=== PATIENT | female | born 1940 | race Caucasian/White ===

== ENCOUNTER → 2017-07-20 | Outpatient (CLI) | payer BC ==
[~2017-07-20] MED LIST: ASCO10003 PO; ASPI325T39 PO; BIOT1CAP3 PO; CHOL100010 PO; CYCL5TAB PO; LEVO112T2 PO; LOSA50TA54 PO; MELA1CAP9 PO; POTA550T4 PO; PRM/45 PO; SULI150T PO; SUMA50TA15 PO
--- NOTE | 2017-07-21 15:32 | MAMMOGRAPHY REPORT ---
BILATERAL DIGITAL SCREENING MAMMOGRAM WITH CAD: 07/20/2017 CLINICAL HISTORY: Routine screening. Patient has no complaints. TECHNIQUE: Current study was also evaluated with a Computer Aided Detection (CAD) system. Bilateral CC and MLO views were obtained. COMPARISON: Comparison is made to exams dated: 07/19/2016 mammogram, 07/15/2015 mammogram, 4 mammogram, 07/11/2013 mammogram, 07/10/2012 mammogram, and 07/05/2011 mammogram - [facility]. BREAST COMPOSITION: There are scattered areas of fibroglandular density in both breasts. FINDINGS: There is an oval 9 mm mass within the right upper outer quadrant, for which spot compressio n tomosynthesis views and possible breast ultrasound are recommended for further evaluation. Additio jose, there is mild motion artifact in the central aspect of the right breast which makes evaluation for stability of previously seen calcifications difficult, therefore, this area should be included i n the spot compression views. Additionally, there is motion artifact on the left MLO view, for which repeat is recommended. The remainder of both breasts are stable compared to prior exams, without suspicious masses, calcific ations, or areas of architectural distortion noted. A biopsy marker clip is again noted within the r ight breast. IMPRESSION: ACR BI-RADS CATEGORY 0: INCOMPLETE EVALUATION: NEED ADDITIONAL IMAGING EVALUATION Right breast mass, for which additional imaging evaluation is recommended. Also recommend repeat lef t MLO view due to motion artifact. The patient will be called to schedule an appointment. Approximately 10% of breast cancers are not detected with mammography. A negative mammographic report should not delay biopsy if a clinically suggestive mass is present. Yessica Milian M.D. ah/:07/20/2017 17:02:51 Truck Despatcher: Sravanthi Farley RT(R)(M)(BD), [facility] letter sent: Addl Imaging 0 BI-RADS Code: ACR BI-RADS Category 0: Incomplete Evaluation: Need Additional Imaging Evaluation
== END | disposition home or self-care (01) ==
LOC: C.MAMM 09:15
PROVIDERS: ATTEND Student in an Organized Health Care Education/Training Program
DX: Z12.31 Encounter for screening mammogram for malignant neoplasm of breast (principal); N63.10 Unspecified lump in the right breast, unspecified quadrant

== ENCOUNTER → 2017-08-02 | Outpatient (CLI) | payer BC ==
[~2017-08-02] MED LIST changes: +CALC500C3 PO; +CHOLTAB5 PO; +CTP/1 PO; +OMEGCAP2 PO; +ZINC OXIDE
--- NOTE | 2017-08-02 15:00 | MAMMOGRAPHY REPORT ---
UNILATERAL RIGHT DIGITAL DIAGNOSTIC MAMMOGRAM TOMOSYNTHESIS AND TARGETED RIGHT ULTRASOUND: 08/02/2017 CLINICAL HISTORY: 76-year-old woman called back from screening mammography for a 9 mm mass in the lat eral right breast. Also technical repeat for the left MLO view. TECHNIQUE: Full field left MLO 2-D and tomosynthesis image, spot compression right CC and MLO 2-D and tomosynthesis images were obtained. COMPARISON: Comparison is made to exams dated: 07/20/2017 mammogram, 07/19/2016 mammogram, 5 mammogram, 07/14/2014 mammogram, 07/11/2013 mammogram, and 07/13/2012 ultrasound - [facility]. BREAST COMPOSITION: There are scattered areas of fibroglandular density in the right breast. FINDINGS: The spot compression views of the right breast demonstrate a persistent lobulated mass in t he upper outer anterior breast measuring 11 x 8 x 10 mm. No associated spiculation or calcification. Further characterization with ultrasound was performed. There are no other suspicious calcificatio n or definite areas of distortion in the visualized right breast on the 2-D or tomosynthesis images. There are a few benign-appearing rodlike calcifications and a stable metallic biopsy marker clip. The repeat left MLO view demonstrates no suspicious calcifications, masses, asymmetries or areas of d istortion. Targeted ultrasound was performed in the right upper outer quadrant. There is a complicated cyst wit h internal debris and nonvascular septations in the 11:00 axis, 110 m from the nipple, measuring 11.3 x 4.6 x 9.7 mm. This is thought to correlate with the mammographic mass and is benign. Another sim ilar appearing but smaller probable complicated cyst with internal nonvascular septations is identifi ed in the 10:00 right breast, 1 cm from the nipple, measuring 5.2 x 5.0 x 5.0 mm. A third lesion is identified in the right breast 9:00 periareolar region that is predominantly isoechoic with a thin pe ripheral anechoic rim and tubular anechoic structure abutting. This is suspicious for an intraductal mass and measures 3.8 x 2.3 x 5.1 mm. Definitive characterization with an ultrasound-guided core bi opsy is recommended. IMPRESSION: ACR BI-RADS CATEGORY 4: SUSPICIOUS, TARGETED ULTRASOUND ACR BI-RADS CATEGORY 4: SUSPICIO US 1. A complicated cyst in the 11:00 right breast is thought to correlate with the newly visualized ma mmographic mass which is benign. Another similar appearing, complicated cyst is also identified in t he 10:00 right breast on ultrasound, compatible with fibrocystic change. 2. However there is a possible intracystic/intraductal 5.1 mm isoechoic mass in the 9:00 periareolar right breast that is incidentally identified on ultrasound and definitive characterization with an u ltrasound-guided core biopsy is recommended. These results and recommendations were discussed with the patient at the time of the exam. She tenta tively scheduled the right breast biopsy prior to leaving our department. Approximately 10% of breast cancers are not detected with mammography. A negative mammographic report should not delay biopsy if a clinically suggestive mass is present. Triny Gimenez M.D. ay/:08/02/2017 11:36:58 Crib Attendant: Leelee SLATER(Aidan)(Corby), [facility] letter sent: Abnormal 4/5 BI-RADS Code: ACR BI-RADS Category 4: Suspicious Ultrasound BI-RADS: ACR BI-RADS Category 4: Suspici ous
== END | disposition home or self-care (01) ==
LOC: C.MAMM 09:42
PROVIDERS: ATTEND Student in an Organized Health Care Education/Training Program
DX: R92.8 Other abnormal and inconclusive findings on diagnostic imaging of breast (principal); N63.10 Unspecified lump in the right breast, unspecified quadrant

== ENCOUNTER → 2017-08-08 | Outpatient (CLI) | payer BC ==
[~2017-08-08] MED LIST changes: -CALC500C3 PO; -CHOLTAB5 PO; -CTP/1 PO; -OMEGCAP2 PO; -ZINC OXIDE
--- NOTE | 2017-08-08 10:24 | Discharge Instructions ---
Discharge Instructions Procedure Procedure Date: Aug 08, 2017. Reason for visit: Right Mass. Discharge Discharge Date: Aug 08, 2017. Discharge Diagnosis: post right breast ultrasound guided core biopsy Medications Restart Stopped Medication(s): May resume Aspirin tonight Instructions Activity Recommendations: Additional Limitations (see below) Return to School/Work: no limitations Recommended Home Diet: No Limitations Provider Instructions: ACTIVITY RECOMMENDATIONS: * No lifting, pushing, pulling or exercising the affected side for three days. RETURN TO SCHOOL/WORK: * You may return to work/school after the procedure, but do not perform any strenuous activities for 24 to 48 hours. MEDICATIONS: * Tylenol (two 325 mg) every four to six hours if needed for mild pain (if not allergic to Tylenol). DIET: * Resume previous diet. SPECIAL CARE INSTRUCTIONS: * Keep biopsy site dry for 24 hours. May shower after 24 hours, but do not soak (bathe) incision. * May remove Tegaderm (plastic patch) tomorrow AFTER showering. * Leave the steri-strips on for one week. Allow the steri-strips to fall off by themselves. If not off after one week, you may remove them. You may place a Bandaid crosswise over the strips, if desired. * Apply ice 10 minutes on and 10 minutes off as needed. * Wear a bra at bedtime to sleep more comfortably for 2-3 days. * Your referring physician should have the results after approximately 5 to 7 business days. * Call for unusual bleeding, fever, drainage, etc or if you have any questions call [phone] during normal business hours or after hours call Dr Gimenez, . FOLLOW UP VISIT: Follow-up with Referring Physician as scheduled. Allergies Coded Allergies: Penicillins (Verified Allergy, Mild, 01/14/16) Ibuprofen (Verified Allergy, Unknown, TACHYCARDIA, 07/23/15) Omeprazole (Verified Allergy, Unknown, UNKN, 07/23/15) Oxycodone (Verified Allergy, Unknown, GI SYMPTOMS, 01/14/16) Ranitidine (Verified Allergy, Unknown, UNKN, 07/23/15) Sulfa Antibiotics (Verified Allergy, Unknown, ., 01/14/16) Ciprofloxacin (Verified Adverse Reaction, Unknown, GI SYMPTOMS, 01/14/16) Meclizine (Verified Adverse Reaction, Unknown, GI SYMPTOMS, 01/14/16) Marcella Paredes Recommendations: Call your doctor if: * Temperature above 101 degrees * Pain not relieved by pain medicine ordered * There is increased drainage or redness from any incision * You have any unanswered questions or concerns. Your Doctors Instructions noted above were prepared by provider Triny Gimenez. Patient Signature Section: Patient Instructions Signature Page Citlaly Esperanza Patient (or Guardian) Signature/Date: I have read and understand the instructions given to me by my caregivers. Caregiver/RN/Doctor Signature/Date: The above-named patient and/or guardian has received patient instructions on this date. + Original Patient Signature Page (only) stays with chart. Please make copy for patient.
--- NOTE | 2017-08-08 14:28 | MAMMOGRAPHY REPORT ---
UNILATERAL RIGHT DIGITAL DIAGNOSTIC MAMMOGRAM TOMOSYNTHESIS: 08/08/2017 CLINICAL HISTORY: Status post ultrasound guided core biopsy of a 5 mm isoechoic possibly intraductal/ intracystic mass in the 9:00 periareolar right breast. Please refer to the report from right breast ultrasound guided core biopsy performed at the same time for full detail. IMPRESSION: POST PROCEDURE IMAGING FOR MARKER PLACEMENT Please refer to the report from right breast ultrasound guided core biopsy performed at the same time for full detail. Approximately 10% of breast cancers are not detected with mammography. A negative mammographic report should not delay biopsy if a clinically suggestive mass is present. Triny Gimenez M.D. ay/:08/08/2017 10:23:08 Towboat Operator: Cheri SLATER(R)(M), [facility] BI-RADS Code: Post Procedure Imaging For Marker Placement
--- NOTE | 2017-08-08 14:28 | MAMMOGRAPHY REPORT ---
ULTRASOUND GUIDED BIOPSY RIGHT BREAST: 08/08/2017 CLINICAL HISTORY: 76-year-old woman presents for ultrasound-guided core biopsy of an incidentally wendy ntified, 5 mm intraductal/intracystic mass in the 9:00 periareolar right breast. She was initially c alled back from screening for a possible 9 mm mass in the lateral right breast, which was thought to correlate with a complicated cyst identified in the 11:00 right breast on ultrasound. COMPARISON: Comparison is made to exams dated: 08/02/2017 ultrasound, 08/02/2017 mammogram, 07/20/2017 m ammogram, 07/19/2016 mammogram, 07/15/2015 mammogram, and 07/14/2014 mammogram - [facility]. PATIENT CONSENT: The procedure, risks and benefits were discussed with the patient and informed conse nt was obtained both verbally and in writing. Specific risks to this procedure include: bleeding, in fection, puncture of adjacent structure, nontarget biopsy, sampling error, pain, metal allergy and me dication reaction. PROCEDURE DESCRIPTION: A time out was performed and the right breast was agreed as the site of biopsy . The skin was prepped and draped in the usual sterile fashion. The isoechoic intraductal versus intr acystic mass in the 9:00 periareolar right breast was chosen as the target for biopsy. Subcutaneous a nd intraparenchymal 1% buffered lidocaine, with and without epinephrine, was administered as local an esthesia. A skin incision was made. Through the incision, 4 samples were taken with a 14 gauge Achie ve biopsy device. A ribbon shaped metallic marker was placed at the biopsy site. Hemostasis was achie shahram after manual compression. The patient tolerated the procedure well and there was no immediate com plication. The samples were sent to the pathology department in an appropriately labeled container. Post procedure right CC and ML tomosynthesis images were obtained. A new ribbon-shaped biopsy marker clip is seen in the 9:00 anterior right breast, denoting the site of recent biopsy. No significant postbiopsy hematoma is seen. Another shield-shaped biopsy marker clip is seen in the posterior 9:00 right breast from remote benign biopsy. The circumscribed oval 9 mm mass in the 11:00 anterior right breast is again identified, thought to correlate with a complicated cyst seen on prior targeted ultr asound. IMPRESSION: ULTRASOUND GUIDED BIOPSY Status post ultrasound-guided core biopsy of a possible intraductal/intracystic mass in the 9:00 shasta areolar right breast, with ribbon-shaped biopsy marker clip placed at the site. The patient will receive notification of the biopsy results from her referring physician. Triny Gimenez M.D. ay/:08/08/2017 11:11:29 Machine Hoop Maker Helper: Cheri BIRD)(Corby), [facility]
== END | disposition home or self-care (01) ==
LOC: C.MAMM 09:18
PROVIDERS: ATTEND Student in an Organized Health Care Education/Training Program
DX: R92.8 Other abnormal and inconclusive findings on diagnostic imaging of breast (principal); N63.10 Unspecified lump in the right breast, unspecified quadrant

== ENCOUNTER → 2017-08-24 | Outpatient (CLI) | payer BC ==
--- NOTE | 2017-08-24 08:38 | Discharge Instructions ---
Discharge Instructions Procedure Procedure Date: Aug 24, 2017. Reason for visit: Right Breast Masses X 2. Discharge Discharge Date: Aug 24, 2017. Discharge Diagnosis: status post breast biopsy Instructions Activity Recommendations: Additional Limitations (see below) Return to School/Work: no limitations Recommended Home Diet: No Limitations Provider Instructions: ACTIVITY RECOMMENDATIONS: * No lifting, pushing, pulling or exercising the affected side for three days. RETURN TO SCHOOL/WORK: * You may return to work/school after the procedure, but do not perform any strenuous activities for 24 to 48 hours. MEDICATIONS: * Tylenol (two 325 mg) every four to six hours if needed for mild pain (if not allergic to Tylenol). DIET: * Resume previous diet. SPECIAL CARE INSTRUCTIONS: * Keep biopsy site dry for 24 hours. May shower after 24 hours, but do not soak (bathe) incision. * May remove Tegaderm (plastic patch) tomorrow AFTER showering. * Leave the steri-strips on for one week. Allow the steri-strips to fall off by themselves. If not off after one week, you may remove them. You may place a Bandaid crosswise over the strips, if desired. * Apply ice 10 minutes on and 10 minutes off as needed. * Wear a bra at bedtime to sleep more comfortably for 2-3 days. * Your referring physician should have the results after approximately 5 to 7 business days. * Call for unusual bleeding, fever, drainage, etc or if you have any questions call during normal business hours or after hours call Dr Milian, [phone]. FOLLOW UP VISIT: Follow-up with Referring Physician as scheduled. Allergies Coded Allergies: Penicillins (Verified Allergy, Mild, 01/14/16) Ibuprofen (Verified Allergy, Unknown, TACHYCARDIA, 07/23/15) Omeprazole (Verified Allergy, Unknown, UNKN, 07/23/15) Oxycodone (Verified Allergy, Unknown, GI SYMPTOMS, 01/14/16) Ranitidine (Verified Allergy, Unknown, UNKN, 07/23/15) Sulfa Antibiotics (Verified Allergy, Unknown, ., 01/14/16) Ciprofloxacin (Verified Adverse Reaction, Unknown, GI SYMPTOMS, 01/14/16) Meclizine (Verified Adverse Reaction, Unknown, GI SYMPTOMS, 01/14/16) Marcella Paredes Recommendations: Call your doctor if: * Temperature above 101 degrees * Pain not relieved by pain medicine ordered * There is increased drainage or redness from any incision * You have any unanswered questions or concerns. Your Doctors Instructions noted above were prepared by provider Yessica Milian. Patient Signature Section: Patient Instructions Signature Page Citlaly Esperanza Patient (or Guardian) Signature/Date: I have read and understand the instructions given to me by my caregivers. Caregiver/RN/Doctor Signature/Date: The above-named patient and/or guardian has received patient instructions on this date. + Original Patient Signature Page (only) stays with chart. Please make copy for patient.
--- NOTE | 2017-08-24 13:42 | MAMMOGRAPHY REPORT ---
ULTRASOUND GUIDED BIOPSY RIGHT BREAST: 08/24/2017 CLINICAL HISTORY: Right 11:00 breast mass. PATIENT CONSENT: The procedure, risks and benefits were discussed with the patient and informed writt en consent was obtained. A timeout was performed immediately prior to the procedure. PROCEDURE DESCRIPTION: With ultrasound guidance, aseptic technique, and lidocaine as the local anesth etic (1% lidocaine to anesthetize the skin and 1% lidocaine with epinephrine to anesthetize the deepe r tissues), the mass of concern in the right 11:00 breast (mass "B") was sampled 3 times with a 14-ga uge Achieve biopsy needle. Immediately thereafter, with ultrasound guidance, aseptic technique, and lidocaine as the local anesthetic, a metallic localizer clip (coil-shaped) was placed at the biopsy s ite. Direct pressure was applied to the site immediately post procedure and hemostasis was achieved. Postprocedure unilateral mammograms were performed to confirm clip placement. The patient tolerate d the procedure without complication. She was given wound care instructions. The specimens were sent to pathology for analysis. COMPARISON: Comparison is made to exams dated: 08/24/2017 ultrasound biopsy, 08/08/2017 ultrasound biop sy, 08/08/2017 mammogram, 08/02/2017 ultrasound, 08/02/2017 mammogram, and 07/20/2017 mammogram - [facility]. IMPRESSION: ULTRASOUND GUIDED BIOPSY Ultrasound-guided core needle biopsy of the right 11:00 breast mass, with clip placement. The patien t will receive pathology results from her referring provider. Yessica Milian M.D. ah/:08/24/2017 08:49:40 Field Cane Scaler: Cheri Palafox, [facility]
--- NOTE | 2017-08-24 13:42 | MAMMOGRAPHY REPORT ---
ULTRASOUND GUIDED BIOPSY RIGHT BREAST: 08/24/2017 CLINICAL HISTORY: Right 10:00 breast mass. PATIENT CONSENT: The procedure, risks and benefits were discussed with the patient and informed writt en consent was obtained. A timeout was performed immediately prior to the procedure. PROCEDURE DESCRIPTION: With ultrasound guidance, aseptic technique, and lidocaine as the local anesth etic (1% lidocaine to anesthetize the skin and 1% lidocaine with epinephrine to anesthetize the deepe r tissues), the mass of concern in the right 10:00 breast (mass "A") was sampled 3 times with a 14-ga uge Achieve biopsy needle. Immediately thereafter, with ultrasound guidance, aseptic technique, and lidocaine as the local anesthetic, a metallic localizer clip (wing-shaped) was placed at the biopsy s ite. Direct pressure was applied to the site immediately post procedure and hemostasis was achieved. Postprocedure unilateral mammograms were performed to confirm clip placement. The patient tolerate d the procedure without complication. She was given wound care instructions. The specimens were sent to pathology for analysis. COMPARISON: Comparison is made to exams dated: 08/08/2017 ultrasound biopsy, 08/08/2017 mammogram, 018 ultrasound, 07/20/2017 mammogram, 07/19/2016 mammogram, and 07/15/2015 mammogram - [facility]. IMPRESSION: ULTRASOUND GUIDED BIOPSY Ultrasound guided core needle biopsy of the right 10:00 breast mass, with clip placement. The patien t will receive pathology results from her referring provider. Yessica Milian M.D. /:08/24/2017 08:48:44 Supervisor Of Communications: Cheri Palafox, [facility]
--- NOTE | 2017-08-24 13:45 | MAMMOGRAPHY REPORT ---
UNILATERAL RIGHT DIGITAL DIAGNOSTIC MAMMOGRAM TOMOSYNTHESIS: 08/24/2017 CLINICAL HISTORY: Status post biopsies of the right 10 and 11:00 breast masses. TECHNIQUE: Breast tomosynthesis in addition to standard 2D mammography was performed. Postprocedura l right CC and ML tomosynthesis images including C views were obtained. COMPARISON: Comparison is made to exams dated: 08/24/2017 ultrasound biopsy, 08/08/2017 ultrasound biop sy, 08/08/2017 mammogram, 08/02/2017 ultrasound, 07/20/2017 mammogram, and 08/02/2017 mammogram - [facility]. BREAST COMPOSITION: There are scattered areas of fibroglandular density in the right breast. FINDINGS: A new wing-shaped biopsy marker clip is seen at the site of the biopsied mass in the right 10:00 breast. A new coil-shaped biopsy marker clip is seen at the site of the biopsied mass in the right 11:00 breast. A wing-shaped biopsy marker clip is seen within the right 9:00 breast at the sit e of prior biopsy which yielded an atypical papillary proliferation. Another biopsy marker clip is s een posteriorly in the right upper outer quadrant from a remote biopsy. No significant postbiopsy he matoma is seen. IMPRESSION: POST PROCEDURE IMAGING FOR MARKER PLACEMENT Two new biopsy marker clips status post ultrasound guided biopsies of the right 10:00 and 11:00 breas t masses. Pathology results are pending. Approximately 10% of breast cancers are not detected with mammography. A negative mammographic report should not delay biopsy if a clinically suggestive mass is present. Yessica Milian M.D. /:08/24/2017 08:52:06 Venture Capital Analyst: Cheri Palafox, [facility] BI-RADS Code: Post Procedure Imaging For Marker Placement
== END | disposition home or self-care (01) ==
LOC: C.MAMM 08:01
PROVIDERS: ATTEND Student in an Organized Health Care Education/Training Program
DX: N63.10 Unspecified lump in the right breast, unspecified quadrant (principal); D24.1 Benign neoplasm of right breast; N60.81 Other benign mammary dysplasias of right breast; N60.11 Diffuse cystic mastopathy of right breast

== ENCOUNTER 2017-09-13 07:42 | Day surgery (SDC) | payer BC ==
[2017-08-31 09:16] VITALS: Ht 154.9 cm; Wt 82.7 kg
--- NOTE | 2017-08-31 09:44 | PAT Medication Instructions ---
Service Date Aug 31, 2017. Current Home Medication List Ascorbic Acid (Vitamin C), 1,000 MG PO QAM Aspirin (Aspirin Ec), 325 MG PO HS Biotin (Biotin), 5,000 MCG PO QAM Cholecalciferol (D-1000), 1 TAB PO QAM Cyclobenzaprine Hcl (Flexeril), 5 MG PO TID PRN for Muscle Spasms Estrogens, Conjugated (Premarin), 0.45 MG PO Q2D Levothyroxine Sodium (Synthroid), 112 MCG PO QAM Losartan Potassium (Cozaar), 50 MG PO QAM Melatonin (Melatonin), 10 MG PO HS Potassium Gluconate (Potassium Gluconate), 1 TAB PO DAILY PRN for Muscle Spasms Sulindac (Clinoril), 150 MG PO BID Sumatriptan Succinate (Imitrex), 50 MG PO PRN Medication Instructions For Your Scheduled Surgery - Check with surgeon for instructions: Aspirin (Aspirin Ec), 325 MG PO HS Estrogens, Conjugated (Premarin), 0.45 MG PO Q2D - Hold the following medications 7-10 days prior to surgery: Sulindac (Clinoril), 150 MG PO BID - Hold the following medications the morning of surgery: Potassium Gluconate (Potassium Gluconate), 1 TAB PO DAILY PRN for Muscle Spasms Losartan Potassium (Cozaar), 50 MG PO QAM Cyclobenzaprine Hcl (Flexeril), 5 MG PO TID PRN for Muscle Spasms Cholecalciferol (D-1000), 1 TAB PO QAM Biotin (Biotin), 5,000 MCG PO QAM Ascorbic Acid (Vitamin C), 1,000 MG PO QAM - Take the following medications the morning of surgery with a sip of water: Sumatriptan Succinate (Imitrex), 50 MG PO PRN i(if needed) Levothyroxine Sodium (Synthroid), 112 MCG PO QAM - Take the following medications as scheduled the night before surgery: Sumatriptan Succinate (Imitrex), 50 MG PO PRN i(if needed) Potassium Gluconate (Potassium Gluconate), 1 TAB PO DAILY PRN for Muscle Spasms i(if needed) Melatonin (Melatonin), 10 MG PO HS Cyclobenzaprine Hcl (Flexeril), 5 MG PO TID PRN for Muscle Spasms i(if needed) If you have any questions please call us at [phone] or [phone] or [phone]
[2017-08-31 10:12] VITALS: BMI 33.0
[2017-08-31 11:22] LABS: BASO % 0.3 %; BASO ABS # 0.02 K/uL (0-0.2); EOS % 1.9 %; EOS ABS # 0.13 K/uL (0-0.5); HEMATOCRIT 40.7 % (37-47); HEMOGLOBIN 13.6 g/dL (12.0-16.0); IG# 0.02 K/uL (0.00-0.02); LYMPH % 24.1 %; LYMPH ABS # 1.61 K/uL (1.2-3.4); MEAN CELL VOLUME 85.7 fL (80-100); MEAN CORPUSCULAR HEMOGLOBIN 28.6 pg (25-34); MEAN CORPUSCULAR HGB CONC 33.4 g/dl (32-36); MEAN PLATELET VOLUME 9.7 fL (7.4-10.4); MONO % 8.2 %; MONO ABS # 0.55 K/uL (0.11-0.59); NEUT % 65.2 %; NEUT ABS # 4.36 K/uL (1.4-6.5); PLATELET COUNT 183 K/uL (130-400); RED CELL DISTRIBUTION WIDTH SD 43.4 fL (36.4-46.3); WHITE BLOOD COUNT 6.69 K/uL (4.8-10.8)
[2017-08-31 11:36] LABS: PTT PATIENT 25.5 SECONDS (21.0-31.0)
[2017-08-31 12:08] LABS: ALBUMIN 3.7 gm/dl (3.4-5.0); CREATININE 0.62 mg/dl (0.60-1.20); POTASSIUM 4.3 mmol/L (3.5-5.1)
[2017-08-31 12:11] LABS: TOTAL PROTEIN 6.9 gm/dl (6.4-8.2)
[~2017-09-13] VITALS: Ht 154.9 cm; Wt 82.7 kg
[~2017-09-13 07:42] MED LIST changes: +CEFAZOLIN 2000MG IV PUSH 15 ML IV SCH; -CHOL100010 PO; +CHOLTAB5 PO; +LACTATED RINGER'S 1000ML 1,000 ML IV SCH
[2017-09-13] MEDS ORDERED: BUPIVACAINE 0.5 % 5 MG/1 ML MPF 30ML VIAL ONE (08:34)
[2017-09-13] MEDS ORDERED: SODIUM CHLORIDE 0.9% PF 50 ML VIAL ONE (08:37)
[2017-09-13 09:27] VITALS: BP 172/78; PULSE 76; TEMP 36.6; O2SAT 96
[2017-09-13] MEDS ORDERED: NURSING VERBAL MED ORDER ONE (10:40)
--- NOTE | 2017-09-13 10:45 | History & Physical Bridge Note ---
H&P Re-Evaluation Bridge Note: I have examined the patient, reviewed the History & Physical and in the interval since the performance of the History & Physical I have noted the following changes of clinical significance: Wires, placed, xray reviewed. No other changes noted
[2017-09-13] MEDS ORDERED: MIDAZOLAM HCL 1 MG/ML 2ML VIAL ONE (10:49)
[2017-09-13] MEDS ORDERED: FENTANYL CITRATE INJ 50 MCG/1 ML 2 ML VIAL ONE (10:49)
[2017-09-13] MEDS ORDERED: CLINDAMYCIN IV 900 MG in DEXTROSE 5% 50ML IV SCH (11:00)
[2017-09-13] MEDS ORDERED: LIDOCAINE/EPINEPHRINE 1% 20 ML VIAL ONE (11:10)
[2017-09-13] MEDS ORDERED: PROPOFOL IV EMULSION 10 MG/ML 20 ML VIAL IV ONE (11:31)
[2017-09-13] MEDS ORDERED: ONDANSETRON INJ 2 MG/ML 2 ML VIAL ONE (11:31)
[2017-09-13] MEDS ORDERED: ATROPINE SULFATE 0.1 MG/ML 5ML SYR IV PRN (11:45)
[2017-09-13] MEDS ORDERED: FENTANYL CITRATE INJ 50 MCG/1 ML 2 ML VIAL IV PRN (11:45)
[2017-09-13] MEDS ORDERED: ONDANSETRON INJ 2 MG/ML 2 ML VIAL IV PRN ×2 (11:45→12:00)
--- NOTE | 2017-09-13 11:48 | [facility] Post Operative Brief Note ---
Immediate Operative Summary Operative Date Sep 13, 2017. Pre-Operative Diagnosis Right breast mass Post-Operative Diagnosis Right breast mass Procedure(s) Performed Right breast wire localized excisional biopsy Surgeon Emmanuelle Draper D.O. Regional Sales Leader Surgeon(s) HUSSAIN Quintero Estimated Blood Loss 3 mL Findings Consistent with Post-Op Diagnosis radiographic confirmation of excision of wires, clips, and specimens Specimens A) right breast mass-short suture superior, long suture lateral, double suture deep B) inferior medial margin, suture joseph border of tumor Drains None Anesthesia Type MAC Complication(s) none Disposition Accompanied Pt To Recover: no Disposition: Recovery Room / PACU
[2017-09-13] MEDS ORDERED: LACTATED RINGER'S 1000ML 1,000 ML IV SCH (11:56)
--- NOTE | 2017-09-13 11:57 | [facility] Operative Report ---
Operative Report Operative Date Sep 13, 2017. Pre-Operative Diagnosis Right breast mass Post-Operative Diagnosis right breast mass Procedure(s) Performed Right breast wire localized excisional biopsy Surgeon Emmanuelle Draper D.O. [employer] Director Surgeon(s) HUSSAIN Quintero Estimated Blood Loss 3 mL Findings Mass and 3 wires completely excised down to chest wall. X-ray confirmed excision of wires, clips, and specimen. Specimen was oriented, additional inferior medial margin excised. Specimens A) right breast mass-short suture superior, long suture lateral, double suture deep B) inferior medial margin, suture joseph border of tumor Drains none Anesthesia MAC/local Complication(s) None Disposition Recovery Room / PACU Indications 76-year-old female with 3 individual masses in upper outer quadrant right breast discovered on screening mammography, biopsy should atypical cells into the specimens and PASH in the other, excisional biopsy recommended. Prior to the procedure the patient had 3 wires placed. Plan for right breast wire localized excisional biopsy. The risks of the procedure were discussed, all questions were answered, and the patient agreed to proceed with surgery as planned. Description of Procedure The patient had a localization wire placed in radiology prior to surgery. The films were reviewed for incisional planning. The patient was properly identified, consented, and taken to the operating room where she was placed in the supine position. After anesthesia care was induced. SCDs and a safety belt were placed. Preoperative antibiotics were administered. The patient's bilateral chest was prepped and draped in the standard sterile fashion. Surgical timeout was performed and all parties were in agreement that this was the correct patient and procedure to be performed and we continued as planned. A transverse incision was made lateral to the nipple on the right breast and deepened down through the subcutaneous tissue with electrocautery. Flaps were raised in all directions. And wires were delivered into the incision. The wires were followed down to the chest wall and the breast mass was circumferentially dissected, excised, and passed off the table as specimen. The specimen was oriented. A mammogram was performed of the specimen and the radiologist confirmed excision of the wire, clip, and previously imaged abnormality. An additional inferior medial margin was excised and oriented with a single stitch marking the cut edge bordering the original biopsy specimen. The wound was irrigated and hemostasis was confirmed. The skin was closed with interrupted 3-0 Vicryl deep dermal sutures, followed by 4-0 Monocryl running subcuticular suture. Dermabond was placed over the wound. The patient was extubated in the operating room and taken to the PACU where she recovered without apparent incident. All sponge, instrument and needle counts were correct at the conclusion of the procedure. The patient tolerated the procedure well. The physician's syrup mixer assistant was present and scrubbed for the entirety of the case. He was essential in positioning the patient, prepping and draping, retraction and exposure, excision of the specimen, and closure of the skin and placement of the dressings. I attest to the content of the Intraoperative Record and any orders documented therein. Any exceptions are noted below.
[2017-09-13] MEDS ORDERED: MoRPHine SULFATE 2 MG/ML CARP IV PRN (12:00)
[2017-09-13] MEDS ORDERED: ACETAMINOPHEN 500 MG TAB PO PRN (12:00)
[2017-09-13 12:20] VITALS: BP 160/71; PULSE 68; TEMP 36.3; O2SAT 95
--- NOTE | 2017-09-13 12:27 | Anesthesiology Progress Note ---
Anesthesia Post Op Note Date & Time Sep 13, 2017 at 12:27 Vital Signs Pain Intensity: 0 Vital Signs Past 12 Hours Date Time Temp Pulse Resp B/P (MAP) Pulse Ox O2 Delivery O2 Flow Rate FiO2 09/13/17 12:15 71 16 168/90 95 Room Air 09/13/17 12:05 68 16 140/68 97 Room Air 09/13/17 11:56 36.3 65 16 127/79 97 Room Air 09/13/17 09:27 36.6 76 20 172/78 (109) 96 Room Air Notes Mental Status: alert / awake / arousable, participated in evaluation Pt Amnestic to Procedure: Yes Nausea / Vomiting: adequately controlled Pain: adequately controlled Airway Patency, RR, SpO2: stable & adequate BP & HR: stable & adequate Hydration State: stable & adequate Anesthetic Complications: no major complications apparent
--- NOTE | 2017-09-13 12:41 | Discharge Instructions ---
Discharge Instructions Date of Service Sep 13, 2017. Visit Reason for Visit: Right Breast Mass Seen On Mammogram W/Hosp Loc Discharge Discharge Diagnosis / Problem: right breast biopsy Discharge Goals Goal(s): Diagnostic testing Activity Recommendations Activity Limitations: as noted below Shower/Bathe: no limitations (ok to shower) Anesthesia . Post Anesthesia Instructions: If you have had General Anesthesia or IV Sedation: * Do not drive today. * Resume driving when surgeon permits. * Do not make important decisions or sign legal documents today. * Call surgeon for: 1. Temperature elevations greater than 101 degrees F. 2. Uncontrollable pain. 3. Excessive bleeding. 4. Persistent nausea and vomiting. 5. Medication intolerance (nausea, vomiting or rash). * For nausea and vomiting use only clear liquids such as: tea, soda, bouillon until nausea subsides, then gradually increase diet as tolerated. * If you have any concerns or questions, call your surgeon's office. If physician is unavailable and it is an emergency, call 911 or go to the nearest emergency room. . Instructions / Follow-Up Instructions / Follow-Up Dr. Draper in 1-2 weeks as planned, call [phone] if you have any questions or do not have an appt You may take Tylenol 650-1000 mg 3 times daily for pain Diet Recommendations Recommended Home Diet: no limitations Procedures Procedures Performed: Right breast wire localized excisional biopsy Pending Studies Studies pending at discharge: yes List of pending studies: pathology Medical Emergencies . Who to Call and When: Medical Emergencies: If at any time you feel your situation is an emergency, please call 911 immediately. . Non-Emergent Contact Non-Emergency issues call your: Surgeon Call Non-Emergent contact if: you have a fever, temperature is above 101.5, your pain is not controlled, wound has increased redness . . "Provider Documentation" section prepared by Anderson Diamond. .
[2017-09-13 12:50] VITALS: BP 142/72; PULSE 68; TEMP 36.3; O2SAT 96
--- NOTE | 2017-09-13 15:21 | MAMMOGRAPHY REPORT ---
MULTIPLE NEEDLE LOCALIZATION RIGHT BREAST: 09/13/2017 CLINICAL HISTORY: Recent ultrasound-guided biopsy of the right breast masses from 9 to 11:00, 2 of wh ich yielded atypical papillary proliferations. The other yielded fibrocystic change and other benign findings. The patient presents for needle localization of all 3 masses. PROCEDURE DESCRIPTION: With imaging guidance, aseptic technique, and 1% lidocaine as the local anest hetic, the three masses with associated biopsy marker clips in the right 9 to 11:00 breast were local ized using three Yeboah II needles. The path of approach was lateral for all masses. The ribbon-sh aped biopsy marker clip and associated right 9:00 breast mass are located just proximal to the ismael o f the anterior-most wire. The coil-shaped biopsy marker clip and associated mass in the right 11:00 breast mass are located at the ismael of the superior-most wire. The wing-shaped biopsy marker clip an d associated mass in the right 10:00 breast are located at the ismael of the posterior-most wire. The n eedles were removed. The patient tolerated the procedure without complication. COMPARISON: Comparison is made to exams dated: 08/24/2017 mammogram, 08/24/2017 ultrasound biopsy, 08/01 ultrasound biopsy, 08/08/2017 ultrasound biopsy, 08/08/2017 mammogram, and 08/02/2017 ultrasound - [facility]. IMPRESSION: NEEDLE LOCALIZATION Mammographic guided needle localization of 3 masses and associated biopsy marker clips in the right 9 to 11:00 breast. Yessica Milian M.D. ah/:09/13/2017 08:37:55 Jazz Musician: Cheri SLATER(Aidan)(M), [facility]
--- NOTE | 2017-09-13 15:21 | MAMMOGRAPHY REPORT ---
MULTIPLE SPECIMENS RIGHT BREAST: 09/13/2017 CLINICAL HISTORY: Status post right breast surgical excision. COMPARISON: Comparison is made to exams dated: 08/24/2017 mammogram, 08/24/2017 ultrasound biopsy, 08/01 ultrasound biopsy, 08/08/2017 ultrasound biopsy, 08/02/2017 ultrasound, and 08/08/2017 mammogram - [facility]. Findings: A radiograph was performed of the right breast surgical specimen. The three localized biop sy marker clips and 3 intact needle localization wires are present within the specimen. Another biop sy marker clip from a remote benign biopsy is also present within the specimen. Results were relayed to Dr. Draper over the telephone. IMPRESSION: SPECIMEN The imaged specimen contains the preoperatively-localized biopsy marker clips. Yessica Milian M.D. ah/:09/13/2017 11:42:42 Molding Room Supervisor: Cheri BIRD)(M), [facility]
== END 2017-09-13 13:15 | disposition home or self-care (01) ==
LOC: C.ACU 07:42
PROVIDERS: ATTEND Surgery
DX: N63.10 Unspecified lump in the right breast, unspecified quadrant (principal); I10 Essential (primary) hypertension; M15.9 Polyosteoarthritis, unspecified; E03.9 Hypothyroidism, unspecified; K21.9 Gastro-esophageal reflux disease without esophagitis; G25.81 Restless legs syndrome; Z79.82 Long term (current) use of aspirin; Z79.899 Other long term (current) drug therapy

== ENCOUNTER → 2017-12-01 | Outpatient (CLI) | payer BC ==
[~2017-12-01] MED LIST changes: -CEFAZOLIN 2000MG IV PUSH 15 ML IV SCH; +CTP/1 PO; -LACTATED RINGER'S 1000ML 1,000 ML IV SCH; -PRM/45 PO; +ZINC OXIDE
[2017-12-01 08:58] VITALS: BP 155/85; PULSE 70; TEMP 36.4; O2SAT 95
--- NOTE | 2017-12-01 10:14 | Radiation Oncology Follow-Up ---
Radiation Oncology Follow-Up Date of Visit December 01, 2017. 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 She received 3850 cGy utilizing accelerated partial breast irradiation. Last Edited By: Audra Batres on Nov 13, 2017 13:46 History of Present Illness Ms. Mata is without a family history of breast cancer. She is undergone bilateral screening mammograms. 07/20/2017. Patient undergoes bilateral digital screening mammogram. This scan revealed a oval 9 mm mass within the right upper outer quadrant. Spot compression and tomosynthesis views and possible breast ultrasound are recommended. 08/02/2017. Patient undergoes unilateral right digital diagnostic mammogram and targeted right breast ultrasound. Spot compression views demonstrate a persistent lobulated mass in the upper outer anterior breast measuring 1.1 x 0.8 x 1.0 cm. No calcification or spiculation are appreciated. Targeted ultrasound was performed of the right upper outer quadrant. At the 11:00 axis XI centimeters from the nipple is a complicated cyst measuring 11.3 x 4.6 x 9.7 mm likely benign. Another similar-appearing but smaller complicated cyst is noted at the 10 o'clock position of the right breast 1 cm from the nipple measuring 5.2 x 5.0 x 5.0 mm. A third lesion is identified in the right breast 9:00 periareolar region that is suspicious for an intraductal mass measuring 3.8 x 2.3 x 5.1 mm. Ultrasound-guided biopsy was recommended. This was given a BI-RADS Category 4. 08/08/2017. Ultrasound-guided core biopsy the 9 o'clock position of the right breast revealed atypical papillary proliferation. Excision is recommended. Case: [id number]. 08/24/2017. Ultrasound-guided biopsy of the right breast at the 10 o'clock position and the right breast 11 o'clock position. The tissue from the 10 o' clock position was consistent with atypical papillary proliferation. The tissue from the 11 o'clock position showed fibrocystic changes but was negative for in situ and invasive carcinoma. Case: [id number]. 09/13/2017. Patient is seen by Dr. Mono Draper. He proceeded with an excisional needle localization biopsy. This revealed a DCIS measuring 2 mm with a nuclear grade of grade 1. The margins were clear with the closest margin 3.5 mm representing the deep margin. This is a pathologic stage pTis. The lesion is ER positive (100%, strong intensity). The lesion is progesterone receptor positive (50%, moderate intensity). Case: [id number]. 10/06/2017. Patient is seen by Dr. Maxi Metcalf to discuss the role of adjuvant hormonal therapy. 10/11/2017. Patient is seen in radiation oncology to discuss the radiation treatment options. She underwent a CT simulation and was found to be a candidate for accelerated partial breast irradiation. This was completed on November 03, 2017. She received 3850 cGy. Interim History She has noticed some swelling at the nipple over the past month. At the end of treatment she stated there was a black marker used to denote the end of the nipple. She had difficulty with removing the marker. She felt this may have to do with some of the swelling noted at the nipple. She has inverted nipples. This is much more pronounced now on the right since the completion of treatment. She has mild discomfort of the breast. She gave this a level 1. There is been no nipple discharge. There was a rash above the breast and across the shoulders. The redness has resolved. She does have some mild itching intermittently. She use the natural care gel and felt that this helped to relieve her rash. She is for recheck appointment with medical oncology today. Allergies Coded Allergies: Penicillins (Verified Allergy, Mild, rash, 09/13/17) Ibuprofen (Verified Allergy, Unknown, TACHYCARDIA, 09/13/17) Oxycodone (Verified Allergy, Unknown, GI SYMPTOMS, 09/13/17) Ranitidine (Verified Allergy, Unknown, rash, 09/13/17) Sulfa Antibiotics (Verified Allergy, Unknown, rash, 09/13/17) Ciprofloxacin (Verified Adverse Reaction, Unknown, GI SYMPTOMS, 09/13/17) Meclizine (Verified Adverse Reaction, Unknown, GI SYMPTOMS, 08/31/17) Home Medications Scheduled Ascorbic Acid (Vitamin C), 1,000 MG PO QAM Aspirin (Aspirin Ec), 325 MG PO HS Biotin (Biotin), 5,000 MCG PO QAM Cholecalciferol (D-1000), 1 TAB PO QAM Clonidine Hcl (Catapres), 1 TAB PO HS Levothyroxine Sodium (Synthroid), 112 MCG PO QAM Losartan Potassium (Cozaar), 50 MG PO QAM Melatonin (Melatonin), 10 MG PO HS Sulindac (Clinoril), 150 MG PO BID Sumatriptan Succinate (Imitrex), 50 MG PO PRN Scheduled PRN Cyclobenzaprine Hcl (Flexeril), 5 MG PO TID PRN for Muscle Spasms Potassium Gluconate (Potassium Gluconate), 1 TAB PO DAILY PRN for Muscle Spasms Miscellaneous Medications [zinc oxid] Review of Systems Gastrointestinal: Symptoms: WNL Oral: Symptoms: No Problems Respiratory: Symptoms: WNL Urinary: Symptoms: WNL Skin: Symptoms: No Problems Other Skin Symptoms: right nipple has opened Breast: Right Upper Arm Measurement: 33.5 Right Mid Arm Measurement: 24.0 Right Wrist Measurement: 17.5 Left Upper Arm Measurement: 33.5 Left Mid Arm Measurement: 23.5 Left Wrist Measurement: 17.5 Arm Dominence: Right Additional Notes: She completed a distress management report and answer "no" to all questions other than she has concerns about eating. Physical Exam Vital Signs Date Time Temp Pulse Resp B/P (MAP) Pulse Ox O2 Delivery O2 Flow Rate FiO2 12/01/17 08:58 36.4 70 20 155/85 95 Fatigue: None General Appearance: no apparent distress Eyes: normal inspection, EOMI Neck: no adenopathy, thyroid normal Respiratory/Chest: lungs clear, no respiratory distress, no accessory muscle use Breast: Breast examination reveals well-healed incision of the right breast. There is edema of the breast with noted swelling at the nipple. Due to the swelling the inverted nipple appears deeper. There is no erythema. There is no discharge from the nipple. There are no signs of infection. There are no masses or tenderness and no axillary adenopathy. Using the [place] score of cosmesis she currently has a fair outcome. The left breast showed no masses or tenderness and no axillary adenopathy. Cardiovascular: regular rate, rhythm, no gallop, no murmur Extremities: no pedal edema Neurologic/Psychiatric: no motor/sensory deficits, alert, normal mood/affect Skin: warm/dry Pain Management Patient Reports Pain: No Pain Location: Breast Patient Preferred Pain Scale: 0 - 10 Initial Pain Intensity: 1.0 Pain Management Plan She did not require any pain management. We discussed that the discomfort and swelling is due to edema. This should improve over time. Laboratory Laboratory Results: not applicable Pathology Pathology Results: were reviewed, and pertinent findings noted in HPI Imaging Imaging Studies: were reviewed, and pertinent findings noted in HPI Assessment & Plan Plan: We discussed the edema of the breast. She was given instructions on light massage to help decreased swelling. She plan to continue the natural care gel for the mild skin irritation. She was instructed to use over-the- counter hydrocortisone for any itching. She also is using some zinc oxide to the nipple. I asked her to use this very lightly. She would be able to discontinue all creams and gels in a week. Today we completed a cancer survivorship care plan. A copy of the document was given to the patient. She was given a survivorship booklet. She will need to be scheduled for mammography. She had to leave our office to go to her medical oncology appointment. She was instructed to come back down and we would schedule the mammograms. Her name was also given to our airfield engineer officer director, Caleb Edwards, to discuss the dissatisfaction she had in regards to the marking of the nipple prior to treatment. She will return to our office in 6 months. She may call if she has any questions or concerns in the interim. She brought in information today in regards to cancer insurance. This will be given to our typing secretary so that further information can be forwarded to the cancer insurance company. Total Time In Follow-Up I spent 20 minutes speaking to the patient in performing examination. I spent 20 minutes reviewing information, preparing the survivorship document, and completing this note. Total Time (Attending) In Follow-Up She denied pain before, and during treatment. She has been some mild discomfort today. This is level 1. We discussed light massage to help decrease breast edema. Copy To Mono Draper DO; Navya Prescott D.O.; Maxi Metcalf MD
== END | disposition home or self-care (01) ==
LOC: C.ONC 08:44
PROVIDERS: ATTEND Physician Assistant Medical
DX: Z08 Encounter for follow-up examination after completed treatment for malignant neoplasm (principal); Z92.3 Personal history of irradiation; Z85.3 Personal history of malignant neoplasm of breast

== ENCOUNTER → 2018-03-01 | Day surgery (SDC) | payer BC ==
[2018-02-27 11:30] VITALS: BMI 32.0
[~2018-03-01] VITALS: Ht 154.9 cm; Wt 77.3 kg
[~2018-03-01] MED LIST changes: -BIOT1CAP3 PO; +CALC500C3 PO; -CYCL5TAB PO; +LIDOCAINE HCL 2% 2 ML VIAL (20MG/ML) ONE; +OMEGCAP2 PO; +PROPOFOL IV EMULSION 10 MG/ML 20 ML VIAL ONE; -ZINC OXIDE
[2018-03-01 12:15] VITALS: Ht 154.9 cm; Wt 77.3 kg
--- NOTE | 2018-03-01 12:41 | Endo History and Physical ---
History & Physical Date of Service: Mar 01, 2018. Chief Complaint: DYSPHAGIA Referring Physician: DR.L. LEON History of Present Illness 77 yo CF who presents for EGD secondary to dysphagia. Past Surgical History Hx Cardiac Surgery: No Hx Internal Defibrillator: No Hx Pacemaker: No Hx Abdominal Surgery: Yes (YAKOV BSO) Hx of Implantable Prosthesis: No Hx Post-Op Nausea and Vomiting: No Hx Cancer Surgery: Yes (R LUMPECTOMY) Hx Thoracic Surgery: No Hx Orthopedic: Yes (bilateral thumbs) Hx Urinary Tract Surgery: No Family History None Social History Smoking Status: Former Smoker Hx Substance Use: No Hx Alcohol Use: Yes (Occasionally ) Allergies Coded Allergies: Nickel (Verified Allergy, Mild, RASH, 03/01/18) Penicillins (Verified Allergy, Mild, rash, 03/01/18) Ibuprofen (Verified Allergy, Unknown, TACHYCARDIA, 03/01/18) Oxycodone (Verified Allergy, Unknown, GI SYMPTOMS, 03/01/18) Ranitidine (Verified Allergy, Unknown, rash, 03/01/18) Sulfa Antibiotics (Verified Allergy, Unknown, rash, 03/01/18) Ciprofloxacin (Verified Adverse Reaction, Unknown, GI SYMPTOMS, 03/01/18) Meclizine (Verified Adverse Reaction, Unknown, GI SYMPTOMS, 03/01/18) Current Medications Reported Home Medications Medications Dose Route/Sig Max Daily Dose Days Date Category Dose Instructions Tums (Calcium Carbonate) 500 Mg Chew 1,000 PO QD 03/01/18 Reported Fish Oil ([place]-3 Fatty Acids) 1 Cap Cap 1 Cap PO DAILY 02/27/18 Reported Catapres (Clonidine Hcl) 0.1 Mg Tab 1 Tab PO HS 30 12/01/17 Reported D-1000 (Cholecalciferol) 1,000 Unit Tab 1 Tab PO QAM 08/31/17 Reported Vitamin C (Ascorbic Acid) 1,000 Mg Tab 1,000 Mg PO QAM 01/14/16 Reported Melatonin 10 Mg Cap 10 Mg PO HS 01/14/16 Reported Cozaar (Losartan Potassium) 50 Mg Tab 50 Mg PO QAM 01/14/16 Reported Imitrex (Sumatriptan Succinate) 50 Mg Tab 50 Mg PO PRN 03/02/15 Reported One pill by mouth at onset of migraine. May repeat every 2 hours but not more than 4 tablets in 24 hours. Aspirin Ec (Aspirin) 325 Mg Tab 325 Mg PO HS 9/21/13 Reported Clinoril (Sulindac) 150 Mg Tab 150 Mg PO BID 04/20/13 Reported Synthroid (Levothyroxine Sodium) 112 Mcg Tab 112 Mcg PO QAM 04/20/13 Reported Vital Signs Weight (Kilograms): 77.27 Height (Feet): 5 Height (Inches): 1 Date Time Temp Pulse Resp B/P (MAP) Pulse Ox O2 Delivery O2 Flow Rate FiO2 03/01/18 12:21 36.6 56 20 181/72 (108) 95 Room Air Physical Exam General Appearance: WD/WN, no apparent distress Respiratory/Chest: Auscultation: breath sounds normal Cardiovascular: Heart Auscultation: RRR Abdomen: Bowel Sounds: normal Inspection & Palpation: soft, non-distended, no tenderness, guarding & rebound Assessment and Plan Assessment: 77 yo CF who presents for EGD secondary to dysphagia. Plan: Proceed with colonoscopy.
--- NOTE | 2018-03-01 13:52 | Discharge Instructions ---
Endoscopy Patient Instructions Date / Procedure(s) Performed Mar 01, 2018. EGD Allergy Information Coded Allergies: Nickel (Verified Allergy, Mild, RASH, 03/01/18) Penicillins (Verified Allergy, Mild, rash, 03/01/18) Ibuprofen (Verified Allergy, Unknown, TACHYCARDIA, 03/01/18) Oxycodone (Verified Allergy, Unknown, GI SYMPTOMS, 03/01/18) Ranitidine (Verified Allergy, Unknown, rash, 03/01/18) Sulfa Antibiotics (Verified Allergy, Unknown, rash, 03/01/18) Ciprofloxacin (Verified Adverse Reaction, Unknown, GI SYMPTOMS, 03/01/18) Meclizine (Verified Adverse Reaction, Unknown, GI SYMPTOMS, 03/01/18) Discharge Date / Findings Mar 01, 2018. Gastric ulcers s/p biopsies Esophageal stenosis s/p dilation to 18 mm Medication Instructions 1) Start Pantoprazole 40mg by mouth each morning 1/2 hour prior to breakfast. 2) OK to resume all medications today as prescribed Reported Home Medications Medications Dose Route/Sig Max Daily Dose Days Date Category Dose Instructions Tums (Calcium Carbonate) 500 Mg Chew 1,000 PO QD 03/01/18 Reported Fish Oil (Seanor-3 Fatty Acids) 1 Cap Cap 1 Cap PO DAILY 02/27/18 Reported Catapres (Clonidine Hcl) 0.1 Mg Tab 1 Tab PO HS 30 12/01/17 Reported D-1000 (Cholecalciferol) 1,000 Unit Tab 1 Tab PO QAM 08/31/17 Reported Vitamin C (Ascorbic Acid) 1,000 Mg Tab 1,000 Mg PO QAM 01/14/16 Reported Melatonin 10 Mg Cap 10 Mg PO HS 01/14/16 Reported Cozaar (Losartan Potassium) 50 Mg Tab 50 Mg PO QAM 01/14/16 Reported Imitrex (Sumatriptan Succinate) 50 Mg Tab 50 Mg PO PRN 03/02/15 Reported One pill by mouth at onset of migraine. May repeat every 2 hours but not more than 4 tablets in 24 hours. Aspirin Ec (Aspirin) 325 Mg Tab 325 Mg PO HS 04/20/13 Reported Clinoril (Sulindac) 150 Mg Tab 150 Mg PO BID 04/20/13 Reported Synthroid (Levothyroxine Sodium) 112 Mcg Tab 112 Mcg PO QAM 04/20/13 Reported Provider Instructions Activity Restrictions - No exercising or heavy lifting for 24 hours. - Do not drink alcohol the day of the procedure. - Do not drive a car or operate machinery until the day after the procedure. - Do not make any important decisions or sign important papers in 24 hours after the procedure. Following Day: - Return to full activity which may include returning to work/school. Diet Start your diet with liquids and light foods (jello, soup, juice, toast). Then eat your usual diet if not nauseated. Treatment For Common After Affects For mild abdominal pain, bloating, or excessive gas: - Rest - Eat lightly - Lie on right side Follow-Up Information Follow-up with DR.L. LEON as scheduled Anesthesia Information What You Should Know You have had a procedure that required some medicine to reduce anxiety and discomfort. This treatment is called moderate sedation. After receiving the treatment, you may be sleepy, but you will be able to breathe on your own. The effects of the treatment may last for several hours. Follow these instructions along with Activity/Diet recommendations noted above: * Do NOT do anything where dizziness or clumsiness would be dangerous. * Rest quietly at home today, then you can be up and about tomorrow. * Have a responsible person stay with you the rest of today. * You may have had an I.V. today. If so, you may take the dressing off later today. Recommendations Call your doctor if: * Trouble breathing * Continuous vomiting for more than 24 hours * Temperature above 101 degrees * Severe abdominal pain or bloating * Pain not relieved by pain medicine ordered * There is increased drainage or redness from any incision * A large amount of rectal bleeding greater than 2-3 tablespoons. (If you had a polyp/s removed or have hemorrhoids, a small amount of blood - from the rectum is to be expected.) * You have any unanswered questions or concerns. IN THE EVENT OF A SERIOUS EMERGENCY, GO TO THE NEAREST EMERGENCY ROOM Your discharge instructions were prepared by provider Maik Batista. Patient Instructions Signature Page Citlaly Mata Patient (or Guardian) Signature/Date: I have read and understand the instructions given to me by my caregivers. Caregiver/RN/Doctor Signature/Date: The above-named patient and/or guardian has received patient instructions on this date. + Original Patient Signature Page (only) stays with chart. Please make copy for patient.
--- NOTE | 2018-03-01 14:04 | GI REPORT ---
Patient Name: Citlaly Mata Procedure Date: 03/01/2018 1:25 PM Date of : 1940 Admit Type: Outpatient Age: 77 Gender: Female Attending MD: Maik Batista DO Procedure: Upper GI endoscopy Providers: Maik Batista DO Referring MD: Aruna Lovelace Indications: Dysphagia Medicines: Monitored Anesthesia Care Complications: No immediate complications. Estimated Blood Loss: Estimated blood loss: none. Procedure: Pre-Anesthesia Assessment: - Prior to the procedure, a History and Physical was performed, and patient medications and allergies were reviewed. The patient's tolerance of previous anesthesia was also reviewed. The risks and benefits of the procedure and the sedation options and risks were discussed with the patient. All questions were answered, and informed consent was obtained. Prior Anticoagulants: The patient has taken aspirin, last dose was 1 day prior to procedure. ASA Grade Assessment: III - A patient with severe systemic disease. After reviewing the risks and benefits, the patient was deemed in satisfactory condition to undergo the procedure. After obtaining informed consent, the endoscope was passed under direct vision. Throughout the procedure, the patient's blood pressure, pulse, and oxygen saturations were monitored continuously. The scope was introduced through the mouth, and advanced to the second part of duodenum. The upper GI endoscopy was accomplished without difficulty. The patient tolerated the procedure well. Findings: One benign-appearing, intrinsic stenosis was found. This stenosis was mildly severe and measured 1.4 cm (inner diameter) x less than one cm (in length). The stenosis was traversed. A TTS dilator was passed through the scope. Dilation with a 15-16.5-18 mm balloon dilator was performed to 18 mm. Three non-bleeding cratered gastric ulcers with no stigmata of bleeding were found in the gastric antrum. The largest lesion was 6 mm in largest dimension. Biopsies were taken with a cold forceps in the gastric antrum for Helicobacter pylori testing. The examined duodenum was normal. Impression: - Benign-appearing esophageal stenosis. Dilated. - Non-bleeding gastric ulcers with no stigmata of bleeding. - Normal examined duodenum. - Biopsies were taken with a cold forceps for Helicobacter pylori testing. Recommendation: - Resume previous diet. - Use Protonix (pantoprazole) 40 mg PO daily. - Await pathology results. - Return to primary care physician as previously scheduled. Maik LetitiaCatherine Batista, DO 03/01/2018 2:04:30 PM This report has been signed electronically. Note Initiated On: 03/01/2018 1:25 PM Number of Addenda: 0 I attest to the content of the Intraoperative Record and orders documented therein, exceptions below {[id number]}
[2018-03-01 14:20] VITALS: BP 164/61; PULSE 68; O2SAT 98
--- NOTE | 2018-03-01 14:40 | Anesthesiology Progress Note ---
Anesthesia Post Op Note Date & Time Mar 01, 2018 at 14:40 Vital Signs Pain Intensity: 0 Vital Signs Past 12 Hours Date Time Temp Pulse Resp B/P (MAP) Pulse Ox O2 Delivery O2 Flow Rate FiO2 03/01/18 14:20 68 20 164/61 (95) 98 Room Air 03/01/18 14:05 65 18 133/106 (115) 96 Room Air 03/01/18 13:50 64 16 120/72 (88) 96 Room Air 03/01/18 12:21 36.6 56 20 181/72 (108) 95 Room Air Notes Mental Status: alert / awake / arousable, participated in evaluation Pt Amnestic to Procedure: Yes Nausea / Vomiting: adequately controlled Pain: adequately controlled Airway Patency, RR, SpO2: stable & adequate BP & HR: stable & adequate Hydration State: stable & adequate Anesthetic Complications: no major complications apparent
== END | disposition home or self-care (01) ==
LOC: C.GI 11:46
PROVIDERS: ATTEND Internal Medicine
DX: K22.2 Esophageal obstruction (principal); K25.9 Gastric ulcer, unspecified as acute or chronic, without hemorrhage or perforation; I10 Essential (primary) hypertension; E66.9 Obesity, unspecified; Z68.32 Body mass index [BMI] 32.0-32.9, adult; Z88.0 Allergy status to penicillin; Z88.1 Allergy status to other antibiotic agents; Z88.2 Allergy status to sulfonamides; Z88.5 Allergy status to narcotic agent; Z88.8 Allergy status to other drugs, medicaments and biological substances; Z79.899 Other long term (current) drug therapy; Z79.82 Long term (current) use of aspirin; Z85.3 Personal history of malignant neoplasm of breast

== ENCOUNTER 2019-01-28 16:08 | Observation (INO) ==
[2019-01-28] MEDS ORDERED: ALBUT/IPRATROP 3MG/0.5MG NEB 3 ML VIAL INH STA (17:03)
[2019-01-28] MEDS ORDERED: SODIUM CHLORIDE 0.9% 1000ML 500 ML IV ONE (17:03)
[2019-01-28] MEDS ORDERED: methylPREDNISolone 60 MG in SYRINGE 1 ML IV STA (17:03)
--- NOTE | 2019-01-28 17:49 | XRay Report ---
XR chest 1V portable CLINICAL HISTORY: Shortness of breath. COMPARISON STUDY: Chest radiograph January 14, 2016. FINDINGS: Lung volumes are normal. Lungs are clear. There is no pneumothorax or pleural effusion. Car diac size is normal. Mediastinal contours are normal. There is no evidence for pulmonary edema. There is suspected calcific tendinitis of the right rotator cuff. Apparent mild right infrahilar opacity i s likely due to summation artifact. IMPRESSION: No acute cardiopulmonary findings. Electronically signed by: Dom Ambrosio M.D. 01/28/2019 5:47 PM
[2019-01-28 18:15] LABS: Basophils # (auto) 0.04 K/uL (0-0.2); Basophils % (auto) 0.5 %; Eosinophils # (auto) 0.25 K/uL (0-0.5); Eosinophils % (auto) 2.9 %; Hematocrit (blood only) 38.7 % (37-47); Hemoglobin 13.3 g/dL (12.0-16.0); Immature Granulocytes # (auto) 0.07 K/uL (0.00-0.02); Immature Granulocytes % (auto) 0.8 %; Lymphocytes # (auto) 1.96 K/uL (1.2-3.4); Lymphocytes % (auto) 23.1 %; Mean Corpuscular Hgb Conc 34.4 g/dL (32-36); Mean Corpuscular Volume 85.8 fL (80-100); Mean Platelet Volume 9.3 fL (7.4-10.4); Monocytes # (auto) 0.74 K/uL (0.11-0.59); Monocytes % (auto) 8.7 %; Neutrophils # (auto) 5.42 K/uL (1.4-6.5); Platelet Count 227 K/uL (130-400); RDW Standard Deviation 40.6 fL (36.4-46.3); Red Blood Count 4.51 M/uL (4.2-5.4); White Blood Count 8.48 K/uL (4.8-10.8)
[2019-01-28] MEDS ORDERED: cefTRIAXone SODIUM 1,000 MG/50 ML BAG IV STA (18:15)
[2019-01-28 18:27] LABS: Partial Thromboplastin Time 25.8 Seconds (21.0-31.0); Prothrombin Time 10.4 Seconds (9.0-12.0)
[2019-01-28 18:47] LABS: Albumin Level 3.4 gm/dl (3.4-5.0); BUN Creatinine Ratio 23.4 (10-20); Calcium 10.4 mg/dl (8.5-10.1); Creatinine Clr Calc Pharmacy 56.1 ml/min; Est GFR (Non-African American) 73.3; Potassium 3.7 mmol/L (3.5-5.1)
[2019-01-28 19:02] LABS: Albumin Globulin Ratio 0.9 (0.9-2); Bilirubin,Total 0.5 mg/dl (0.2-1); Globulin 3.9 gm/dl (2.5-4.0); Total Protein 7.3 gm/dl (6.4-8.2); Troponin I 0.124 ng/ml (0-0.045)
[2019-01-28 19:36] LABS: Appearance Urine Clear (Clear); Bilirubin Urine Negative (Negative); Blood Urine Trace (Negative); Color Urine Yellow; Glucose Urine UA Negative (Negative); Ketones Urine Negative (Negative); Leukocyte Esterase Urine 2+ (Negative); Nitrite Urine Negative (Negative); Protein Urine Negative (Negative); Specific Gravity Urine 1.012 (1.000-1.030); Urobilinogen Urine Negative (Negative); pH Urine 6.5 (4.5-7.5)
[2019-01-28 19:57] LABS: Bacteria Urine Automated Negative (Negative); Cast Urine Automated 0 /lpf (0-5)
[2019-01-28] MEDS ORDERED: INSULIN HUMAN NPH SC ONE (20:35)
--- NOTE | 2019-01-28 20:39 | History & Physical Report ---
Date of Service January 28, 2019 Assessment & Plan (1) Acute bronchitis: This is a 78-year-old female with a PMH of hypertension, hypothyroidism, intraductal carcinoma in situ of right breast and other medical problems listed below who presents with worsening shortness of breath x 10 days and was found to have acute bronchitis, possible urinary tract infection and mild elevated troponin. -Given 60 mg IV Solu-Medrol, Rocephin and DuoNeb in the ED -Continue duo nebs QIDR and Q2H PRN, will transition to oral prednisone 40mg -No evidence of PNA on CXR -Follow cultures (2) UTI (urinary tract infection): Foul smelling urine, incontinence -UA with 2+ leuk esterase but no nitrites, wbcs -Continue Rocephin for now. Follow cultures (3) Elevated troponin: Mild troponin elevated of 0.124. 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 CXR without acute abnormalities -Will obtain 2D echo. 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 Follows with Dr. Metcalf -S/p lumpectomy in 2018 -Continue Arimidex (5) Hypertension: Elevated in setting of missed clonidine dose. Will order in ED -Continue clonidine, losartan (6) Hypothyroidism: Continue levothyroxine (7) Esophageal reflux: H/o gastritis in 2018 -Continue protonix DVT Ppx: SQ Lovenox Code status: FULL PCP: [facility] Dispo: Observation med tele. Discharge planning ordered. Patient seen in collaboration with Dr. Bhatia. Please see addendum. History of Present Illness Chief Complaint: Shortness of breath, productive cough Primary Care Provider: Navya Prescott DO This is a 78-year-old female with a PMH of hypertension, hypothyroidism, intraductal carcinoma in situ of right breast and other medical problems listed below who presents with worsening shortness of breath x 10 days. Was seen in clinic last Monday after she got up to use the bathroom and had a fall. States she hit her head and her chest during the fall. CT orbit and head were completed, without evidence of bleed or orbital fracture. Was also evaluated for cough and congestion that had been going on for the previous week, per patient. Has been trying uapd-vtn-fzrmnsa medicine and was prescribed a Z-Roddy. Has completed 3 days of treatment but coughing persisted with productive yellowish-brown sputum, intermittent subjective fever and chills, pleuritic chest pain and shortness of breath. Has also been having more urinary incontinence, which is slightly worse than baseline but wears pads daily. Denies any lightheadedness, headache, confusion, visual changes, ear pain, sore throat, palpitations, nausea, vomiting, abdominal pain, dysuria, diarrhea or constipation. Has had decreased appetite since fall last week. Patient is afebrile and hemodynamically stable. No leukocytosis. Chest x-ray without any evidence of acute cardiopulmonary abnormalities. Urine with presence of leuk esterase and white blood cells but no nitrite or urine bacteria. Mild troponin elevation of 0.124. Allergies Allergy/AdvReac Type Severity Reaction Status Date / Time ibuprofen Allergy Mild TACHYCARDIA Verified 04/30/18 11:11 nickel Allergy Mild RASH Verified 04/30/18 11:11 oxycodone Allergy Mild Nausea/Vomi Verified 01/28/19 18:33 ting Penicillins Allergy Mild Rash and Verified 01/28/19 18:33 throat tightness ranitidine Allergy Mild rash Verified 01/28/19 18:33 Sulfa (Sulfonamide Allergy Mild rash Verified 01/28/19 18:33 Antibiotics) ciprofloxacin AdvReac Mild GI SYMPTOMS Verified 01/28/19 18:33 meclizine AdvReac Mild GI SYMPTOMS Verified 01/28/19 18:33 Cipro AdvReac Unknown GI SYMPTOMS Verified 03/01/18 12:07 Home Medications Home Medications Medication Instructions Recorded Confirmed Type ascorbic acid (vitamin C) [Vitamin 1,000 mg PO QAM 04/24/18 01/28/19 History C] clonidine HCl 0.2 mg PO BID 04/24/18 01/28/19 History levothyroxine 112 mcg PO QAM 04/24/18 01/28/19 History lorazepam 0.5 mg PO Q6H PRN 04/24/18 01/28/19 History losartan 50 mg PO QAM 04/24/18 01/28/19 History sulindac 150 mg PO BID 04/24/18 01/28/19 History anastrozole 1 mg PO DAILY 01/28/19 01/28/19 History aspirin 81 mg PO DAILY 01/28/19 01/28/19 History azithromycin See Rx Instructions .ROUTE .COMPLEX 01/28/19 01/28/19 History cholecalciferol (vitamin D3) 2,000 unit PO DAILY 01/28/19 01/28/19 History [Vitamin D3] cyclobenzaprine 5 mg PO HS PRN 01/28/19 01/28/19 History fluticasone propionate 2 spray INTRANASAL DAILY 01/28/19 01/28/19 History melatonin 10 mg PO HS PRN 01/28/19 01/28/19 History montelukast 10 mg PO DAILY 01/28/19 01/28/19 History pantoprazole 40 mg PO QAM 01/28/19 01/28/19 History sumatriptan succinate 50 mg PO DIRECTED PRN MDD 200 01/28/19 01/28/19 History MG/24 HOURS Past Med/Surg History Medical History Hypertension (Chronic) Anxiety (Chronic) Arthritis (Chronic) Hearing deficit (Chronic) Insomnia (Chronic) Migraine (Chronic) Osteoarthritis (Chronic) Stomach ulcer (Resolved) Surgical History Hx of lumpectomy (Chronic) LEFT BREAST (RADIATION) History of cataract surgery (Chronic) History of colonoscopy (Chronic) History of endoscopic sinus surgery (Chronic) History of tooth extraction (Chronic) History of total abdominal hysterectomy and bilateral salpingo-oophorectomy (Chronic) Trigger finger (Chronic) THUMB/LIGAMENT SURGERY Family History Other Cancer of kidney Heart disease Social History Preferred Language: [place] Communication Ability: Effective 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 Physical Exam Physical Exam: General Appearance: WD/WN, no apparent distress Head: normocephalic, atraumatic, well healing laceration above left eyebrow, ecchymosis above eye Eyes: normal inspection, PERRL, EOMI ENT: hard of hearing, pharynx normal (moist mucous membranes) Neck: supple, no JVD, no adenopathy Respiratory/Chest: Scattered rhonchi and wheezes, crackles at bilateral bases. No respiratory distress or accessory muscle use Cardiovascular: regular rate, rhythm, no murmur, normal peripheral pulses Abdomen/GI: normal bowel sounds, soft, non-tender to palpation Extremities/Musculoskelatal: normal inspection, no calf tenderness, normal capillary refill, no pedal edema Neurologic/Psych: alert, anxious mood/affect, oriented x 3 Skin: normal color, warm/dry Results & Data Vital Signs (Past 12 Hours) Vital Signs Temp Pulse Pulse Resp BP BP Pulse Ox 01/28/19 19:17 76 20 178/92 H 96 01/28/19 18:24 72 16 96 01/28/19 18:08 75 18 176/82 H 94 01/28/19 17:03 72 96 01/28/19 16:21 36.6 C 77 20 188/73 H 95 Laboratory Results Short CBC 01/28/19 01/28/19 Range/Units 18:04 18:04 WBC 8.48 (4.8-10.8) K/uL Hgb 13.3 (12.0-16.0) g/dL Hct 38.7 (37-47) % Plt Count 227 (130-400) K/uL AST 51 H (15-37) U/L BMP 01/28/19 18:04 Sodium 138 Potassium 3.7 Chloride 103 Carbon Dioxide 27 BUN 18 Creatinine 0.78 Glucose 103 H Calcium 10.4 H Cardiac Enzymes 01/28/19 Range/Units 18:04 Troponin I 0.124 H* (0-0.045) ng/ml Liver Function 01/28/19 Range/Units 18:04 Total Bilirubin 0.5 (0.2-1) mg/dl AST 51 H (15-37) U/L ALT 70 (12-78) U/L Alkaline Phosphatase 49 (45-117) U/L Albumin 3.4 (3.4-5.0) gm/dl Urine 01/28/19 Range/Units 19:09 Urine Color Yellow Urine Appearance Clear (Clear) Urine pH 6.5 (4.5-7.5) Ur Specific [place] 1.012 (1.000-1.030) Urine Protein Negative (Negative) Urine Glucose (UA) Negative (Negative) Diagnostic Findings CXR: IMPRESSION: No acute cardiopulmonary findings. Supervising Physician Co-Signing Physician Notes Care coordinated with Bree Melgar PA-C. Agree with above note. Patient seen and examined. Please refer to her notes for full details. Vital signs reviewed. Physical exam: General exam: Alert and oriented. Not in acute distress. CVS: S1 and S2 heard, regular rate and rhythm, no murmurs. RS: Clear to auscultation, no wheezing or crackles. ABD: Soft, bowel sounds present, nontender, no distention. 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 EXT: No edema, no erythema. Labs: Reviewed. Assessment and plan: 78f presents with ongoing sob and cough and chest pain on coughing. Fell few days ago at home and hit hiead and chest and passed out at that time. After that developed symptoms of sob and cough and was tretaed with z roddy for bronchitis. But symptoms not getting better sob/cough rhonchi on exam will follow ct chest to rule out pe and pneumonia starting on rocephin and doxycyline Mild elevation of troponin will trend enzymes echo UTI rocephin follow cultures Other diagnosis and plan of care as per []. Wilberto winchester MD. (1) Acute bronchitis Bronchitis organism: unspecified organism Qualified Code(s): J20.9 - Acute bronchitis, unspecified
[2019-01-28] MEDS ORDERED: ONDANSETRON INJ 2 MG/ML 2 ML VIAL IV PRN (22:33)
[2019-01-28] MEDS ORDERED: GUAIFENESIN/CODEINE 100MG/10MG 5ML UDC PO PRN (22:33)
[2019-01-28] MEDS ORDERED: POLYETHYLENE (MIRALAX) 17 GM PACK PO PRN (22:33)
[2019-01-28] MEDS ORDERED: CYCLOBENZAPRINE HCL 5 MG TAB PO PRN (22:33)
[2019-01-28] MEDS ORDERED: SUMAtriptan succinate 50 MG TAB PO PRN (22:33)
[2019-01-28] MEDS ORDERED: LORazepam 0.5 MG TAB PO PRN (22:33)
[2019-01-28] MEDS ORDERED: ACETAMINOPHEN 325 MG TAB PO PRN (22:33)
[2019-01-28] MEDS: cloNIDine HCl 0.1 MG TAB PO SCH (23:40)
[2019-01-28] MEDS: SULINDAC 150 MG TAB PO SCH (23:40)
[2019-01-28] MEDS: ENOXAPARIN INJ 40 MG/0.4 ML SYR SQ SCH (23:41)
[2019-01-29] MEDS ORDERED: OPTIRAY 320 125ml IV PRN (00:30)
[2019-01-29] MEDS: LEVOTHYROXINE SODIUM 112 MCG TABLET PO SCH (05:32)
[2019-01-29 05:39] LABS: Hematocrit (blood only) 37.1 % (37-47); Hemoglobin 12.8 g/dL (12.0-16.0); Mean Corpuscular Hgb Conc 34.5 g/dL (32-36); Mean Corpuscular Volume 86.3 fL (80-100); Mean Platelet Volume 9.3 fL (7.4-10.4); Platelet Count 249 K/uL (130-400); RDW Coefficient of Variation 12.9 % (11.5-14.5); RDW Standard Deviation 41.1 fL (36.4-46.3); White Blood Count 5.68 K/uL (4.8-10.8)
[2019-01-29 06:37] LABS: BUN Creatinine Ratio 22.3 (10-20); Calcium 9.7 mg/dl (8.5-10.1); Creatinine Clr Calc Pharmacy 52.1 ml/min; Est GFR (African American) 77.7; Potassium 4.1 mmol/L (3.5-5.1); Troponin I 0.13 ng/ml (0-0.045)
--- NOTE | 2019-01-29 06:41 | CT Scan Report ---
CT ANGIOGRAM OF THE CHEST CLINICAL HISTORY: Atypical chest pain, cough, shortness of breath. Possible pulmonary embolism. COMPARISON STUDY: Chest x-ray dated 01/28/2019 TECHNIQUE: Following the IV administration of 84 mL of Optiray-320, CT angiogram of the thorax was pe rformed from the thoracic inlet to the lung bases utilizing the pulmonary embolus protocol. Images ar e reviewed in the axial, sagittal, and coronal planes. IV contrast was administered without complicat ion. MIP imaging was performed. A dose lowering technique was utilized adhering to the principles of ALARA. CT DOSE: 259.53 mGy.cm FINDINGS: Mediastinal lymph nodes are the upper limits of normal in size. There is no pathologic hilar adenopat hy. There was no evidence of thoracic aortic dilatation. There were no pulmonary artery filling defects to indicate acute pulmonary embolism. No pleural effusions are visualized. There are mild dependent atelectatic changes. There is no lobar consolidation. There is mild nonspeci fic groundglass attenuation of the lungs, with a slight mosaic pattern. Presumed posttreatment changes involve the right breast IMPRESSION: 1. No evidence of acute pulmonary embolism 2. Subtle groundglass attenuation the lungs with a mosaic attenuation pattern. This may represent are as of air trapping. 3. Parenchymal breast asymmetry with right breast skin thickening and skin retraction. This likely re presents post therapeutic changes from prior right breast cancer treatment Electronically signed by: Dejuan Murphy M.D. 01/29/2019 6:40 AM
[2019-01-29 06:50] LABS: Beta-Hydroxybutyrate 2.22 mg/dl (0.2-2.81)
[2019-01-29] MEDS: ALBUT/IPRATROP 3MG/0.5MG NEB 3 ML VIAL NEB SCH ×3 (07:20→15:42)
[2019-01-29] MEDS ORDERED: INSULIN HUMAN NPH SC SCH ×2 (07:30)
[2019-01-29] MEDS ORDERED: GLUCOSE 10 TABS/TUBE PO PRN (07:30)
[2019-01-29] MEDS ORDERED: CARBOHYDRATES FOR HYPOGLYCEMIA PO PRN (07:30)
[2019-01-29] MEDS ORDERED: GLUCOSE 40% GEL 15 GM TUBE PO PRN (07:30)
[2019-01-29] MEDS ORDERED: DEXTROSE 50% 50 ML SYRINGE IV PRN (07:30)
[2019-01-29] MEDS ORDERED: GLUCAGON FOR INJ 1 MG VIAL IM PRN (07:30)
[2019-01-29 07:49] LABS: Estimated Average Glucose 140 mg/dl; Hemoglobin A1C 6.5 % (4.5-5.6)
[2019-01-29] MEDS ORDERED: PHARMACY GLYCEMIC MGMT CONSULT SCH (07:59)
[2019-01-29] MEDS: cloNIDine HCl 0.1 MG TAB PO SCH ×2 (08:00→20:38)
[2019-01-29] MEDS: predniSONE 20 MG TAB PO SCH (08:01)
[2019-01-29] MEDS: ASCORBIC ACID 500 MG TAB PO SCH (08:02)
[2019-01-29] MEDS: PANTOprazole 40 MG TAB PO SCH (08:02)
[2019-01-29] MEDS: ANASTROZOLE 1 MG TAB PO SCH (08:03)
[2019-01-29] MEDS: MONTELUKAST SODIUM 10 MG TABLET PO SCH (08:03)
[2019-01-29] MEDS: CHOLECALCIFEROL 1,000 UNITS TAB PO SCH (08:03)
[2019-01-29] MEDS: ASPIRIN 81 MG ECTAB PO SCH (08:04)
[2019-01-29] MEDS: FLUTICASONE PROPIONATE NA SPR 16 GM BTL NAE SCH (08:04)
[2019-01-29] MEDS: LOSARTAN POTASSIUM 50 MG TAB PO SCH (08:04)
[2019-01-29] MEDS: cefTRIAXone SODIUM 1,000 MG in DEXTROSE 5% 50 ML IV SCH (08:05)
[2019-01-29] MEDS ORDERED: INSULIN GLARGINE SOLOSTAR 100 UNITS/ML 3 ML PEN SC SCH (09:00)
[2019-01-29] MEDS: INSULIN ASPART 100 UNITS/ML 3 ML PEN SC SCH ×4 (09:06→20:40)
[2019-01-29] MEDS: SULINDAC 150 MG TAB PO SCH ×2 (09:50→20:39)
--- NOTE | 2019-01-29 11:39 | Pharmacy Report ---
Pharmacy Glycemic Short Note 2 - Date of Service January 29, 2019 - Glycemic Short BSG Results (Last 24 hours): 01/28/19 01/29/19 01/29/19 18:04 05:29 07:53 Glucose 103 H 335 H* POC Glucose 296 H OUTPATIENT ANTIDIABETIC REGIMEN: * n/a * A1c = 6.5% ASSESSMENT: * Patient admitted for SOB, acute bronchitis, elevated troponin and possible UTI * BSGs climbed quickly into the 300s following IV Solu-Medrol administration yesterday * A1c is consistent w/ a dx of DM however repeat testing with a different diagnostic technique recommended to confirm dx * Patient will continue prednisone today in a dose of 40mg daily * Plan to today: utilize NPH to combat steroid induced hyperglycemia. NPH to be given with AM Prednisone dose. * Novolog will be initiated with moderate-severe stress doses this AM until BSGs better controlled then begin to titrate down PLAN FOR INPATIENT GLYCEMIC CONTROL: * Basal insulin * NPH 25 units SQ daily in the AM (at the same time prednisone is given) * Bolus insulin * NovoLog per scale ACHS or Q6hrs while NPO * Goal Range: Low 110 mg/dL - High 140 mg/dL * Correction Factor: 25 mg/dL/unit * Nutritional / Prandial insulin per carb ratio of 1 unit per 8 grams CHO consumed PLAN FOR DISCHARGE: * to be determined
--- NOTE | 2019-01-29 13:49 | Emergency Department Note ---
Entered by Samantha White acting as a scribe for Caleb Schmitt MD History of Present Illness General Chief complaint: Respiratory Problems Stated complaint: RESPIRATORY ISSUES, COUGH Time Seen by Provider: 01/28/19 16:54 Source: patient History of Present Illness Onset (ago): week(s) 1 (1.5) Location: chest (respiratory issues) Pain Consistency: + other (worsening) Maximum Pain Intensity: 0 Exacerbated By: + other (recent fall) Associated symptoms: + denies other symptoms (diarrhea), + cough (with mucous production), + fever/chills, + shortness of breath and + other (leg weakness, loss of appetite); no nausea/vomiting The patient is a 78 year old F who presents to the Emergency Room with complaints of worsening respiratory issues that started 1.5 weeks ago. The patient states that she experienced a fall 1.5 weeks ago. She notes that she fell forward and lost consciousness. She adds that she has had two CT scans which ruled out all serious issues. She notes that her current symptoms started after her fall. She states that she is currently experiencing coughing, leg weakness, shortness of breath, loss of appetite, and fevers. She adds that she has had mucous production with her cough. She denies using an inhaler. She denies experiencing any vomiting and diarrhea. She notes that she was at her PCP today who referred her to the ED for a possible episode of pneumonia. She states that she has a history of sinusitis. She denies a history of diabetes. A review of the patient records reveal that the patient had a CT of her head and left orbit performed on 01/25. The CT scans found no fracture and no intracranial bleeding. The patients records also show that the patient was prescribed a Z- pack for her cough but did not molded goods spot picker her medication until yesterday. Home Medications Home Medications Medication Instructions Recorded Confirmed Type ascorbic acid (vitamin C) [Vitamin 1,000 mg PO QAM 04/24/18 01/28/19 History C] clonidine HCl 0.2 mg PO BID 04/24/18 01/28/19 History levothyroxine 112 mcg PO QAM 04/24/18 01/28/19 History lorazepam 0.5 mg PO Q6H PRN 04/24/18 01/28/19 History losartan 50 mg PO QAM 04/24/18 01/28/19 History sulindac 150 mg PO BID 04/24/18 01/28/19 History anastrozole 1 mg PO DAILY 01/28/19 01/28/19 History aspirin 81 mg PO DAILY 01/28/19 01/28/19 History azithromycin See Rx Instructions .ROUTE .COMPLEX 01/28/19 01/28/19 History cholecalciferol (vitamin D3) 2,000 unit PO DAILY 01/28/19 01/28/19 History [Vitamin D3] cyclobenzaprine 5 mg PO HS PRN 01/28/19 01/28/19 History fluticasone propionate 2 spray INTRANASAL DAILY 01/28/19 01/28/19 History melatonin 10 mg PO HS PRN 01/28/19 01/28/19 History montelukast 10 mg PO DAILY 01/28/19 01/28/19 History pantoprazole 40 mg PO QAM 01/28/19 01/28/19 History sumatriptan succinate 50 mg PO DIRECTED PRN MDD 200 01/28/19 01/28/19 History MG/24 HOURS Allergies Allergy/AdvReac Type Severity Reaction Status Date / Time ibuprofen Allergy Mild TACHYCARDIA Verified 04/30/18 11:11 nickel Allergy Mild RASH Verified 04/30/18 11:11 oxycodone Allergy Mild Nausea/Vomi Verified 01/28/19 18:33 ting Penicillins Allergy Mild Rash and Verified 01/28/19 18:33 throat tightness ranitidine Allergy Mild rash Verified 01/28/19 18:33 Sulfa (Sulfonamide Allergy Mild rash Verified 01/28/19 18:33 Antibiotics) ciprofloxacin AdvReac Mild GI SYMPTOMS Verified 01/28/19 18:33 meclizine AdvReac Mild GI SYMPTOMS Verified 01/28/19 18:33 Cipro AdvReac Unknown GI SYMPTOMS Verified 03/01/18 12:07 Past Med/Surg History Medical History Hypertension (Chronic) Anxiety (Chronic) Arthritis (Chronic) Hearing deficit (Chronic) Insomnia (Chronic) Migraine (Chronic) Osteoarthritis (Chronic) Stomach ulcer (Resolved) Surgical History Hx of lumpectomy (Chronic) LEFT BREAST (RADIATION) History of cataract surgery (Chronic) History of colonoscopy (Chronic) History of endoscopic sinus surgery (Chronic) History of tooth extraction (Chronic) History of total abdominal hysterectomy and bilateral salpingo-oophorectomy (Chronic) Trigger finger (Chronic) THUMB/LIGAMENT SURGERY Family History Other Cancer of kidney Heart disease Social History Preferred Language: Cymro Communication Ability: Effective Director Of Placement Required: No Beliefs That Will Affect Care: Adventist Adventist Beliefs: Bahai Current Living Situation: Alone Other Information That Helps Us Care for You: No Feels Safe at Home: Yes Safety Concerns: Feels Safe At This Time Smoking Status: Former smoker Do You Dip or Chew Tobacco: No Smoking End Date: "long time ago" Second Hand Exposure: No Hx Alcohol Use: Yes Alcohol type: wine Alcohol Intake Frequency: Holidays/Special Occasions Hx Substance Use: No Review of Systems See HPI for pertinent positives & negatives. and A total of 10 systems reviewed and were otherwise negative Physical Exam Vital Signs Vital Signs - 24 hr 01/28/19 18:24 01/28/19 19:17 Pulse Rate [Right Finger] 72 76 Respiratory Rate 16 20 Blood Pressure [Right Arm] 178/92 H Blood Pressure Mean [Right Arm] 120 Pulse Oximetry 96 96 Oxygen Delivery Method Room Air Room Air GENERAL: Patient is in no acute distress. HEENT: Healing laceration and contusion to the left forehead. Old contusion to the left orbit, no signs erythema. Dry mucous membranes. No throat erythema. NECK: No stridor, no adenopathy, no meningismus, trachea is midline. LUNGS: Wheezes and rhonchi bilaterally, seems to have shortness of breath to speak, diminished breath sounds bilaterally, moist cough noted. HEART: Without murmurs gallops or rubs, regular rate and rhythm. ABDOMEN: Soft, nontender, bowel sounds positive, no hernias, no peritonitis. EXTREMITIES: No cyanosis or edema, full range of motion of all the joints without pain or difficulty, no signs for acute trauma. NEUROLOGIC: Oriented x 3, no acute motor or sensory deficits, no focal weakness. SKIN: No rash, no jaundice, no diaphoresis. Course 1656: The patient was evaluated in room C11B. A complete history and physical exam was performed. 1858: I re-checked the patient and updated her on her test results. 1912: I reviewed the patient's case [facility] will [facility] the patient for further management. Consultations Consultation #1: I reviewed the patient's case with Dr. Bree Melgar PA-C, [facility] Hospitalist. She will evaluate the patient for further management. Time: 19:13 Administered Medications Anastrozole (Arimidex) 1 mg PO DAILY [facility] Stop: 02/28/19 08:59 Last Admin: 01/29/19 08:03 Dose: 1 mg Documented by: [id number] Cosigned by: [id number] Ascorbic Acid (Vitamin C) 1,000 mg PO QAM YURI Stop: 02/28/19 08:59 Last Admin: 01/29/19 08:02 Dose: 1,000 mg Documented by: [id number] Aspirin (Ecotrin Ectab) 81 mg PO DAILY Y[facility] Stop: 02/28/19 08:59 Last Admin: 01/29/19 08:04 Dose: 81 mg Documented by: [id number] Clonidine HCl (Catapres) 0.2 mg PO BID [facility] Stop: 02/27/19 22:44 Last Admin: 01/29/19 08:00 Dose: 0.2 mg Documented by: [id number] Admin: 01/28/19 23:40 Dose: 0.2 mg Documented by: [id number] Enoxaparin Sodium (Lovenox) 40 mg SQ HS [facility] Stop: 02/27/19 22:59 Last Admin: 01/28/19 23:41 Dose: 40 mg Documented by: [id number] Fluticasone Propionate (Flonase) 2 sprays REGINALD DAILY YURI Stop: 02/28/19 08:59 Last Admin: 01/29/19 08:04 Dose: 2 sprays Documented by: [id number] Ceftriaxone Sodium 1,000 mg/ (Dextrose) 50 mls @ 100 mls/hr IV Q24H YURI; Protocol Stop: 02/03/19 08:59 Last Infusion: 01/29/19 09:28 Dose: 0 mls/hr Documented by: [id number] Admin: 01/29/19 08:05 Dose: 100 mls/hr Documented by: [id number] Insulin Aspart (Novolog Flexpen) 0 units SC ACHS YURI Stop: 02/28/19 07:29 Last Admin: 01/29/19 17:40 Dose: 8 units Documented by: [id number] Cosigned by: [id number] Admin: 01/29/19 12:28 Dose: 8 units Documented by: [id number] Cosigned by: [id number] Admin: 01/29/19 09:06 Dose: 9 units Documented by: [id number] Cosigned by: [id number] Insulin Human NPH (Novolin N Nph) 25 units SC DAILY@0730 [facility] Stop: 02/28/19 07:29 Last Admin: 01/29/19 08:50 Dose: 25 units Documented by: [id number] Cosigned by: [id number] Ioversol (Optiray 320 125ml) 125 ml IV ONCE PRN PRN Reason: Interaction Checking Stop: 02/02/19 00:29 Last Admin: 01/29/19 00:30 Dose: 84 ml Documented by: [id number] Levothyroxine Sodium (Synthroid) 112 mcg PO DAILYBB [facility] Stop: 02/28/19 06:29 Last Admin: 01/29/19 05:32 Dose: 112 mcg Documented by: [id number] Losartan Potassium (Cozaar) 50 mg PO QAM [facility] Stop: 02/28/19 08:59 Last Admin: 01/29/19 08:04 Dose: 50 mg Documented by: [id number] Montelukast Sodium (Singulair) 10 mg PO DAILY YURI Stop: 02/28/19 08:59 Last Admin: 01/29/19 08:03 Dose: 10 mg Documented by: [id number] Pantoprazole Sodium (Protonix) 40 mg PO QAM YURI Stop: 02/28/19 08:59 Last Admin: 01/29/19 08:02 Dose: 40 mg Documented by: [id number] Prednisone (Prednisone) 40 mg PO DAILY [facility] Stop: 02/28/19 08:59 Last Admin: 01/29/19 08:01 Dose: 40 mg Documented by: [id number] Sulindac (Clinoril) 150 mg PO BID YURI Stop: 02/27/19 22:32 Last Admin: 01/29/19 09:50 Dose: 150 mg Documented by: [id number] Admin: 01/28/19 23:40 Dose: Not Given Documented by: [id number] Vitamin D (Vitamin D3) 2,000 units PO DAILY Y[facility] Stop: 02/28/19 08:59 Last Admin: 01/29/19 08:03 Dose: 2,000 units Documented by: [id number] Discontinued Medications Albuterol (Duoneb) 3 ml INH NOW STA Stop: 01/28/19 17:04 Last Admin: 01/28/19 18:24 Dose: 3 ml Documented by: [id number] Albuterol (Duoneb) 3 ml NEB QIDR YURI Stop: 02/28/19 07:59 Last Admin: 01/29/19 15:42 Dose: 3 ml Documented by: [id number] Admin: 01/29/19 11:22 Dose: 3 ml Documented by: [id number] Admin: 01/29/19 07:20 Dose: 3 ml Documented by: [id number] Methylprednisolone 60 mg/ (Syringe) 1.96 mls @ 1.5 mls/min IV NOW STA Stop: 01/28/19 17:04 Last Admin: 01/28/19 19:08 Dose: 1.5 mls/min Documented by: [id number] Sodium Chloride (Nss 1000ml) 500 mls @ 999 mls/hr IV .Q31M ONE Stop: 01/28/19 17:33 Last Infusion: 01/28/19 19:38 Dose: 0 mls/hr Documented by: [id number] Admin: 01/28/19 19:08 Dose: 999 mls/hr Documented by: [id number] Ceftriaxone Sodium (Rocephin) 1,000 mg in 50 mls @ 100 mls/hr IV NOW STA Stop: 01/28/19 18:44 Last Infusion: 01/28/19 19:38 Dose: 0 mls/hr Documented by: [id number] Admin: 01/28/19 19:08 Dose: 100 mls/hr Documented by: [id number] Methylprednisolone (Solumedrol) Confirm Administered Dose 80 mg .ROUTE .STK-MED ONE Stop: 01/28/19 19:05 Last Admin: 01/28/19 19:09 Dose: Not Given Documented by: [id number] Medical Decision Making Differential Diagnosis Differential diagnosis includes: PNA, bronchitis, CHF, dehydration , electrolyte imbalance, cardiac ischemia, UTI, anemia Medical Records Attestation: I reviewed the patient's medical records. Home Medications Current Medication List: was personally reviewed by me Laboratory Data Attestation: I reviewed the patient's lab results. Result diagrams: 01/29/19 05:29 01/29/19 05:29 Lab Results 01/28/19 01/28/19 01/28/19 Range/Units 18:04 18:04 18:04 WBC 8.48 (4.8-10.8) K/uL RBC 4.51 (4.2-5.4) M/uL Hgb 13.3 (12.0-16.0) g/dL Hct 38.7 (37-47) % MCV 85.8 (80-100) fL MCH 29.5 (25-34) pg MCHC 34.4 (32-36) g/dL RDW Std Deviation 40.6 (36.4-46.3) fL RDW Coeff of Landry 13.0 (11.5-14.5) % Plt Count 227 (130-400) K/uL MPV 9.3 (7.4-10.4) fL Immature Gran % (Auto) 0.8 % Neut % (Auto) 64.0 % Lymph % (Auto) 23.1 % [place] % (Auto) 8.7 % Eos % (Auto) 2.9 % Baso % (Auto) 0.5 % Immature Gran # (Auto) 0.07 H (0.00-0.02) K/uL Neut # (Auto) 5.42 (1.4-6.5) K/uL Lymph # (Auto) 1.96 (1.2-3.4) K/uL [place] # (Auto) 0.74 H (0.11-0.59) K/uL Eos # (Auto) 0.25 (0-0.5) K/uL Baso # (Auto) 0.04 (0-0.2) K/uL PT 10.4 (9.0-12.0) Seconds INR 1.0 (0.9-1.1) APTT 25.8 (21.0-31.0) Seconds PTT Ratio 1.0 Sodium 138 (136-145) mmol/L Potassium 3.7 (3.5-5.1) mmol/L Chloride 103 (98-107) mmol/L Carbon Dioxide 27 (21-32) mmol/L Anion Gap 8.0 (3-11) BUN 18 (7-18) mg/dl Creatinine 0.78 (0.6-1.2) mg/dl Est Cr Clr Drug Dosing 56.1 ml/min Est GFR ( Amer) 85.0 Est GFR (Non-Af Amer) 73.3 BUN/Creatinine Ratio 23.4 H (10-20) Glucose 103 H (70-99) mg/dl Lactate (0.4-2.0) mmol/L Calcium 10.4 H (8.5-10.1) mg/dl Magnesium 2.0 (1.8-2.4) mg/dl Total Bilirubin 0.5 (0.2-1) mg/dl AST 51 H (15-37) U/L ALT 70 (12-78) U/L Alkaline Phosphatase 49 (45-117) U/L Troponin I 0.124 H* (0-0.045) ng/ml Total Protein 7.3 (6.4-8.2) gm/dl Albumin 3.4 (3.4-5.0) gm/dl Globulin 3.9 (2.5-4.0) gm/dl Albumin/Globulin Ratio 0.9 (0.9-2) Urine Color Urine Appearance (Clear) Urine pH (4.5-7.5) Ur Specific [place] (1.000-1.030) Urine Protein (Negative) Urine Glucose (UA) (Negative) Urine Ketones (Negative) Urine Blood (Negative) Urine Nitrite (Negative) Urine Bilirubin (Negative) Urine Urobilinogen (Negative) Ur Leukocyte Esterase (Negative) Urine WBC (Auto) (0-5) /hpf Urine RBC (Auto) (0-4) /hpf U Hyaline Cast (Auto) (0-5) /lpf U Epithel Cells (Auto) (0-5) /lpf Urine Bacteria (Auto) (Negative) 01/28/19 01/28/19 Range/Units 18:04 19:09 WBC (4.8-10.8) K/uL RBC (4.2-5.4) M/uL Hgb (12.0-16.0) g/dL Hct (37-47) % MCV (80-100) fL MCH (25-34) pg MCHC (32-36) g/dL RDW Std Deviation (36.4-46.3) fL RDW Coeff of Landry (11.5-14.5) % Plt Count (130-400) K/uL MPV (7.4-10.4) fL Immature Gran % (Auto) % Neut % (Auto) % Lymph % (Auto) % [place] % (Auto) % Eos % (Auto) % Baso % (Auto) % Immature Gran # (Auto) (0.00-0.02) K/uL Neut # (Auto) (1.4-6.5) K/uL Lymph # (Auto) (1.2-3.4) K/uL [place] # (Auto) (0.11-0.59) K/uL Eos # (Auto) (0-0.5) K/uL Baso # (Auto) (0-0.2) K/uL PT (9.0-12.0) Seconds INR (0.9-1.1) APTT (21.0-31.0) Seconds PTT Ratio Sodium (136-145) mmol/L Potassium (3.5-5.1) mmol/L Chloride (98-107) mmol/L Carbon Dioxide (21-32) mmol/L Anion Gap (3-11) BUN (7-18) mg/dl Creatinine (0.6-1.2) mg/dl Est Cr Clr Drug Dosing ml/min Est GFR ( Amer) Est GFR (Non-Af Amer) BUN/Creatinine Ratio (10-20) Glucose (70-99) mg/dl Lactate 1.5 (0.4-2.0) mmol/L Calcium (8.5-10.1) mg/dl Magnesium (1.8-2.4) mg/dl Total Bilirubin (0.2-1) mg/dl AST (15-37) U/L ALT (12-78) U/L Alkaline Phosphatase (45-117) U/L Troponin I (0-0.045) ng/ml Total Protein (6.4-8.2) gm/dl Albumin (3.4-5.0) gm/dl Globulin (2.5-4.0) gm/dl Albumin/Globulin Ratio (0.9-2) Urine Color Yellow Urine Appearance Clear (Clear) Urine pH 6.5 (4.5-7.5) Ur Specific [place] 1.012 (1.000-1.030) Urine Protein Negative (Negative) Urine Glucose (UA) Negative (Negative) Urine Ketones Negative (Negative) Urine Blood Trace H (Negative) Urine Nitrite Negative (Negative) Urine Bilirubin Negative (Negative) Urine Urobilinogen Negative (Negative) Ur Leukocyte Esterase 2+ H (Negative) Urine WBC (Auto) 5-10 H (0-5) /hpf Urine RBC (Auto) 5-10 H (0-4) /hpf U Hyaline Cast (Auto) 0 (0-5) /lpf U Epithel Cells (Auto) 10-20 H (0-5) /lpf Urine Bacteria (Auto) Negative (Negative) Imaging Data Radiologist's Impression: Radiology results as stated below per my review and the radiologist's interpretation: XR chest 1V portable CLINICAL HISTORY: Shortness of breath. COMPARISON STUDY: Chest radiograph January 14, 2016. FINDINGS: Lung volumes are normal. Lungs are clear. There is no pneumothorax or pleural effusion. Cardiac size is normal. Mediastinal contours are normal. There is no evidence for pulmonary edema. There is suspected calcific tendinitis of the right rotator cuff. Apparent mild right infrahilar opacity is likely due to summation artifact. IMPRESSION: No acute cardiopulmonary findings. Electronically signed by: Dom Ambrosio M.D. 01/28/2019 5:47 PM ECG Data Attestation: I personally reviewed and interpreted this ECG as follows: Indication: SOB/dyspnea Rate (beats per minute): 74 Rhythm: sinus rhythm Findings: + other (old septal infarct) and + PAC; no ST elevation Blood Pressure Blood Pressure Findings: Elevated blood pressure Blood Pressure Disposition: further management by hospitalist [facility] Narrative There is no leukocytosis or concerning anemia. No significant electrolyte abnormality or kidney failure. Lactic acid level is not elevated making sepsis less likely. No concerning liver enzyme elevation. EKG shows a sinus rhythm, no acute ischemic change. Cardiac enzyme testing x1 is mildly elevated, this is concerning for cardiac injury or possibly strain. Urinalysis does not show infection or hematuria. Chest film shows diffuse parenchymal congestion, no obvious focal pneumonia, no CHF. Blood cultures are pending. The patient was given a DuoNeb, IV Solu-Medrol, IV saline, the ceftriaxone. She seems fairly comfortable. The patient presents with fever, increasing dyspnea and shortness of breath. She appears to have an acute bronchitis if not an early pneumonia just not noticed on chest film. She is been doing poorly at home. She does have an elevated cardiac troponin that requires trending. I do think a hospital stay is warranted. She requires hydration, IV antibiotic therapy, IV steroids and frequent albuterol nebs. I did speak to the patient and her family, the on-call hospitalist was consulted. Impression & Plan SOB (shortness of breath), Acute bronchitis, Wheezing, Elevated troponin Discharge Plan Visit Data *Final* Discharge Date/Time: 01/28/19 22:01 Chief Complaint: Respiratory Problems Stated Complaint: RESPIRATORY ISSUES, COUGH ED Provider: Caleb Schmitt Discharge Problem: SOB (shortness of breath), Acute bronchitis, Wheezing, Elevated troponin Patient Disposition: Admitted As Inpatient Discharge Instructions Interventions: ED Discharge Assessment Last Done: 01/28/19 22:01 Discharge Problem: Acute bronchitis Qualifiers: Bronchitis organism: unspecified organism Qualified Code(s): J20.9 - Acute bronchitis, unspecified The scribe's documentation has been prepared under my direction and personally reviewed by me in its entirety. I confirm that the note above accurately reflects all work, treatment, procedures, and medical decision making performed by me.
--- NOTE | 2019-01-29 15:19 | Hospitalist Progress Note ---
Date of Service January 29, 2019 Assessment & Plan (1) Acute bronchitis: This is a 78-year-old female with a PMH of hypertension, hypothyroidism, intraductal carcinoma in situ of right breast and other medical problems listed below admitted with worsening shortness of breath x 10 days and was found to have acute bronchitis, possible urinary tract infection and mild elevated troponin. -Symptom has improved No hypoxia no respiratory distress, no shortness of breath Has ongoing nonproductive cough, afebrile normal white count On empiric antibiotic with Rocephin for bronchitis No evidence of PE/pneumonia on CT chest (2) UTI (urinary tract infection): Foul smelling urine, incontinence -UA with 2+ leuk esterase but no nitrites, wbcs -On Rocephin . Follow cultures (3) Elevated troponin: Mild troponin elevated of 0.124. 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 Follows with Dr. Metcalf -S/p lumpectomy in 2018 -Continue Arimidex (5) Hypertension: BP stable -Continue clonidine, losartan (6) Hypothyroidism: Continue levothyroxine (7) Esophageal reflux: H/o gastritis in 2018 -Continue protonix DVT Ppx: SQ Lovenox Code status: FULL PCP: [place] Dispo: Patient lives alone in senior apartment, was independent in her ADLs To be increased forgetful, Sustained a fall approximately 4 days ago hitting her head, passing out, Did not seek any medical attention, granddaughter brought her to the clinic later got admitted for shortness of breath hypoxia bronchitis Patient will benefit with home health visiting nurse, offered her the option, patient declined Feels she is able to take care of herself Possible discharge home in next 1 to 2 days with oral antibiotic if cough respiratory status improves Family medicine follow-up with Dr. Navya Morales [facility] in[facility] Subjective Continues to have a nonproductive cough, no fever chills Denies of any shortness of breath, no chest heaviness or discomfort . Eager to be discharged home Physical Exam Constitutional: WD/WN, vitals as above Eyes: PERRL, conjunctivae normal, anicteric sclerae ENMT: external ear and nose normal, oropharynx normal Skin tear/healed wound noted on left outer forehead, above left eyebrow from prior trauma Ecchymosis around left eye -at resolution stage Neck: trachea midline, no thyromegaly Respiratory: normal respiratory effort and + cough; no respiratory distress and no labored breathing Auscultation: + crackles and + rales; no wheezes Coarse breathing sound bilaterally with crackles positive rales no wheeze Cardiovascular: RRR, no murmur, no edema Gastrointestinal (Abdomen): normal bowel sounds, soft, nontender, no hepatosplenomegaly Musculoskeletal: no cyanosis or clubbing, extremities motor strength 5/5 Skin: Trauma: + evidence of skin trauma (On the left upper forehead near the eyebrow) Neurologic: PERRL, EOMI, accommodation nl, no face palsy, no dysarthria Psychiatric: Orientation: alert Insight: + poor insight She appears to be very forgetful, with poor short-term memory Very poor insight regarding safety and her disease process Results & Data Vital Signs (Past 12 Hours) Vital Signs Temp Pulse Resp BP Pulse Ox 01/29/19 11:37 36.6 C 119 H 16 149/89 H 95 01/29/19 11:23 84 18 94 01/29/19 08:11 36.3 C L 67 20 156/81 H 92 01/29/19 07:20 74 16 95 01/29/19 04:00 36.6 C 73 18 157/89 H 94 (1) Acute bronchitis Bronchitis organism: unspecified organism Qualified Code(s): J20.9 - Acute bronchitis, unspecified
[2019-01-29] MEDS ORDERED: GUAIFENESIN/DEXTROM SYRUP 200MG/20MG 10ML UDC PO PRN (17:43)
[2019-01-29] MEDS ORDERED: ALBUT/IPRATROP 3MG/0.5MG NEB 3 ML VIAL NEB PRN (18:07)
[2019-01-29] MEDS: ENOXAPARIN INJ 40 MG/0.4 ML SYR SQ SCH (20:39)
[2019-01-30] MEDS: LEVOTHYROXINE SODIUM 112 MCG TABLET PO SCH (05:36)
[2019-01-30] MEDS ORDERED: INSULIN HUMAN NPH SC SCH (07:30)
[2019-01-30] MEDS: cloNIDine HCl 0.1 MG TAB PO SCH (08:02)
[2019-01-30] MEDS: LOSARTAN POTASSIUM 50 MG TAB PO SCH (08:02)
[2019-01-30] MEDS: predniSONE 20 MG TAB PO SCH (08:03)
[2019-01-30] MEDS: PANTOprazole 40 MG TAB PO SCH (08:03)
[2019-01-30] MEDS: ANASTROZOLE 1 MG TAB PO SCH (08:03)
[2019-01-30] MEDS: ASPIRIN 81 MG ECTAB PO SCH (08:04)
[2019-01-30] MEDS: FLUTICASONE PROPIONATE NA SPR 16 GM BTL NAE SCH (08:04)
[2019-01-30] MEDS: MONTELUKAST SODIUM 10 MG TABLET PO SCH (08:05)
[2019-01-30] MEDS: ASCORBIC ACID 500 MG TAB PO SCH (08:05)
[2019-01-30] MEDS: SULINDAC 150 MG TAB PO SCH (08:05)
[2019-01-30] MEDS: CHOLECALCIFEROL 1,000 UNITS TAB PO SCH (08:06)
[2019-01-30] MEDS: cefTRIAXone SODIUM 1,000 MG in DEXTROSE 5% 50 ML IV SCH (08:09)
[2019-01-30] MEDS: INSULIN ASPART 100 UNITS/ML 3 ML PEN SC SCH (08:21)
--- NOTE | 2019-01-30 08:39 | Pharmacy Report ---
Pharmacy Glycemic Short Note 2 - Date of Service January 30, 2019 - Glycemic Short BSG Results (Last 24 hours): 01/29/19 01/29/19 01/29/19 11:34 16:28 20:31 POC Glucose 127 H 212 H 151 H OUTPATIENT ANTIDIABETIC REGIMEN: * n/a * A1c = 6.5% The patient is currently receiving: * Basal insulin: NPH 25 units Q AM (with prednisone 40mg) * Correctional Insulin: Novolog Correction per scale ACHS Goal Range: Low 110 mg/dL - High 140 mg/dL Correction Factor: 25 mg/dL/unit * Prandial insulin: Per carb ratio of 1 unit per 8 grams CHO consumed ASSESSMENT: 01/30 * Glycemic control has improved over the last 24 hrs * NPH was used yesterday to prevent hyperglycemia secondary to AM Prednisone. This was somewhat successful however BSG did climb to low 200s yesterday prior to dinner. Will give slightly larger dose this AM, however I am hesitant to increase dose much as his fasting BSG was 72 this AM and NPH could be contributing to lower AM BSG if duration of action is longer than 12-18 hrs. * Will give lesser doses of Novolog the second half of the day (when Prednisone wears off) 01/29 * Patient admitted for SOB, acute bronchitis, elevated troponin and possible UTI * BSGs climbed quickly into the 300s following IV Solu-Medrol administration yesterday * A1c is consistent w/ a dx of DM however repeat testing with a different diagnostic technique recommended to confirm dx * Patient will continue prednisone today in a dose of 40mg daily * Plan to today: utilize NPH to combat steroid induced hyperglycemia. NPH to be given with AM Prednisone dose. * Novolog will be initiated with moderate-severe stress doses this AM until BSGs better controlled then begin to titrate down PLAN FOR INPATIENT GLYCEMIC CONTROL: * Basal insulin (increased dose) * NPH 28 units SQ daily in the AM (at the same time prednisone is given) * Bolus insulin * NovoLog per scale ACHS or Q6hrs while NPO * Goal Range: Low 110 mg/dL - High 140 mg/dL * Correction Factor: 25 mg/dL/unit with breakfast + lunch, 30mg/dL/unit w/ dinner and HS * Nutritional / Prandial insulin per carb ratio of 1 unit per 8 grams CHO consumed with breakfast + lunch; 1 unit per 10 grams CHO w/ dinner PLAN FOR DISCHARGE: * to be determined
--- NOTE | 2019-01-30 10:30 | Hospitalist Progress Note ---
Date of Service January 30, 2019 Assessment & Plan (1) Acute bronchitis: This is a 78-year-old female with a PMH of hypertension, hypothyroidism, intraductal carcinoma in situ of right breast and other medical problems listed below admitted with worsening shortness of breath x 10 days and was found to have acute bronchitis, possible urinary tract infection and mild elevated troponin. No evidence of PE/pneumonia on CT chest given Ceftriaxone IV, Prednisone 40mg daily x 2 days patient has improved while admitted, less cough, non productive, afebrile ambulating with no problems discharge plan: Doxycycline 100mg BID x 5 days Prednisone taper x 9 days, starting at 40mg po daily PRN Albuterol patient advised to call PCP immediately if with worsening of symptoms (2) UTI (urinary tract infection): - patient denies dysuria, abdominal pain, fever/chlls -UA with 2+ leuk esterase but no nitrites, wbcs -Urine culture: negative so far, re-incubating will ff up final urine culture result - monitor as outpatient (3) Elevated troponin: Mild troponin elevated of 0.124. 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 CXR without acute abnormalities -Resting echo shows no wall motion abnormality normal ejection fraction - no cardiac symptoms (4) Hyperglycemia: possible steroid induced vs. 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 Follows with Dr. Metcalf -S/p lumpectomy in 2018 -Continue Arimidex (6) Hypertension: - elevated while admitted, asymptomatic likely from acute illness, anxiety -Continue clonidine, losartan - monitor (7) Hypothyroidism: Continue levothyroxine (8) Esophageal reflux: H/o gastritis in 2018 -Continue protonix DVT Ppx: SQ Lovenox given Code status: FULL PCP: [place] Dispo: Home with home health services ff up with PCP Dr. Barfield 02/04/19 Subjective ff up for acute bronchitis seen resting in bed, comfortable in good spirits states she feels better overall breathing has improved significantly less cough, non productive ambulates with no problems no dysuria, fever/chills, abdominal pain denies other symptoms states she is ready and would like to be discharged today Review of Systems Review of Systems: All systems reviewed & are unremarkable except as noted in HPI & below Physical Exam Physical Exam: General- oriented x 3, not in distress, speaks in sentences with no effort or accessory muscle use Eyes- anicteric Neck- no JVD Lungs- (+) mild wheeze and rhonchi on the right lung, clear on the left Heart- normal rate, regular rhythm; no murmurs Abdomen- normal bowel sounds, nondistended, soft, nontender Extremities- no pretibial edema, no calf tenderness Neuro- alert, oriented x 3; no gross focal neurologic deficits Skin- warm & dry Results & Data Vital Signs (Past 12 Hours) Vital Signs Temp Pulse Resp BP Pulse Ox 01/30/19 07:00 36.4 C L 69 18 187/71 H 97 01/29/19 23:58 36.7 C 63 18 174/79 H 94 Laboratory Results all noted and reviewed (1) Acute bronchitis Bronchitis organism: unspecified organism Qualified Code(s): J20.9 - Acute bronchitis, unspecified
[2019-01-30] MEDS ORDERED: INSULIN ASPART 100 UNITS/ML 3 ML PEN SC SCH ×2 (16:30)
--- NOTE | 2019-01-30 18:28 | Discharge Summary ---
Date of Service January 30, 2019 Admission HPI Per Admitting Provider This is a 78-year-old female with a PMH of hypertension, hypothyroidism, intraductal carcinoma in situ of right breast and other medical problems listed below who presents with worsening shortness of breath x 10 days. Was seen in clinic last Monday after she got up to use the bathroom and had a fall. States she hit her head and her chest during the fall. CT orbit and head were completed, without evidence of bleed or orbital fracture. Was also evaluated for cough and congestion that had been going on for the previous week, per patient. Has been trying qble-apn-inqbfik medicine and was prescribed a Z-Roddy. Has completed 3 days of treatment but coughing persisted with productive yellowish-brown sputum, intermittent subjective fever and chills, pleuritic chest pain and shortness of breath. Has also been having more urinary incontinence, which is slightly worse than baseline but wears pads daily. Denies any lightheadedness, headache, confusion, visual changes, ear pain, sore throat, palpitations, nausea, vomiting, abdominal pain, dysuria, diarrhea or constipation. Has had decreased appetite since fall last week. Patient is afebrile and hemodynamically stable. No leukocytosis. Chest x-ray without any evidence of acute cardiopulmonary abnormalities. Urine with presence of leuk esterase and white blood cells but no nitrite or urine bacteria. Mild troponin elevation of 0.124. Admission Exam Per Admitting Provider General Appearance: WD/WN, no apparent distress Head: normocephalic, atraumatic, well healing laceration above left eyebrow, ecchymosis above eye Eyes: normal inspection, PERRL, EOMI ENT: hard of hearing, pharynx normal (moist mucous membranes) Neck: supple, no JVD, no adenopathy Respiratory/Chest: Scattered rhonchi and wheezes, crackles at bilateral bases. No respiratory distress or accessory muscle use Cardiovascular: regular rate, rhythm, no murmur, normal peripheral pulses Abdomen/GI: normal bowel sounds, soft, non-tender to palpation Extremities/Musculoskelatal: normal inspection, no calf tenderness, normal capillary refill, no pedal edema Neurologic/Psych: alert, anxious mood/affect, oriented x 3 Skin: normal color, warm/dry Principal Diagnosis ACUTE BRONCHITIS Discharge Exam General- oriented x 3, not in distress, speaks in sentences with no effort or accessory muscle use Eyes- anicteric Neck- no JVD Lungs- (+) mild wheeze and rhonchi on the right lung, clear on the left Heart- normal rate, regular rhythm; no murmurs Abdomen- normal bowel sounds, nondistended, soft, nontender Extremities- no pretibial edema, no calf tenderness Neuro- alert, oriented x 3; no gross focal neurologic deficits Skin- warm & dry Discharge Data Allergies Allergy/AdvReac Type Severity Reaction Status Date / Time ibuprofen Allergy Mild TACHYCARDIA Verified 04/30/18 11:11 nickel Allergy Mild RASH Verified 04/30/18 11:11 oxycodone Allergy Mild Nausea/Vomi Verified 01/28/19 18:33 ting Penicillins Allergy Mild Rash and Verified 01/28/19 18:33 throat tightness ranitidine Allergy Mild rash Verified 01/28/19 18:33 Sulfa (Sulfonamide Allergy Mild rash Verified 01/28/19 18:33 Antibiotics) ciprofloxacin AdvReac Mild GI SYMPTOMS Verified 01/28/19 18:33 meclizine AdvReac Mild GI SYMPTOMS Verified 01/28/19 18:33 Cipro AdvReac Unknown GI SYMPTOMS Verified 03/01/18 12:07 Consultations 01/28/19 19:17 ED Decision to Admit Stat 01/28/19 22:33 Consult Case Management - Discharge Planning Routine Ordered Studies 01/28/19 23:07 CT angio chest PE protocol Urgent CT ANGIOGRAM OF THE CHEST CLINICAL HISTORY: Atypical chest pain, cough, shortness of breath. Possible pulmonary embolism. COMPARISON STUDY: Chest x-ray dated 01/28/2019 TECHNIQUE: Following the IV administration of 84 mL of Optiray-320, CT angiogram of the thorax was performed from the thoracic inlet to the lung bases utilizing the pulmonary embolus protocol. Images are reviewed in the axial, sagittal, and coronal planes. IV contrast was administered without complication. MIP imaging was performed. A dose lowering technique was utilized adhering to the principles of ALARA. CT DOSE: 259.53 mGy.cm FINDINGS: Mediastinal lymph nodes are the upper limits of normal in size. There is no pathologic hilar adenopathy. There was no evidence of thoracic aortic dilatation. There were no pulmonary artery filling defects to indicate acute pulmonary embolism. No pleural effusions are visualized. There are mild dependent atelectatic changes. There is no lobar consolidation. There is mild nonspecific groundglass attenuation of the lungs, with a slight mosaic pattern. Presumed posttreatment changes involve the right breast IMPRESSION: 1. No evidence of acute pulmonary embolism 2. Subtle groundglass attenuation the lungs with a mosaic attenuation pattern. This may represent areas of air trapping. 3. Parenchymal breast asymmetry with right breast skin thickening and skin retraction. This likely represents post therapeutic changes from prior right breast cancer treatment Hospital Course (1) Acute bronchitis: This is a 78-year-old female with a PMH of hypertension, hypothyroidism, intraductal carcinoma in situ of right breast and other medical problems listed below admitted with worsening shortness of breath x 10 days and was found to have acute bronchitis, possible urinary tract infection and mild elevated troponin. No evidence of PE/pneumonia on CT chest given Ceftriaxone IV, Prednisone 40mg daily x 2 days patient has improved while admitted, less cough, non productive, afebrile ambulating with no problems discharge plan: Doxycycline 100mg BID x 5 days Prednisone taper x 9 days, starting at 40mg po daily PRN Albuterol patient advised to call PCP immediately if with worsening of symptoms (2) UTI (urinary tract infection): - patient denies dysuria, abdominal pain, fever/chlls -UA with 2+ leuk esterase but no nitrites, wbcs -Urine culture: negative so far, re-incubating will ff up final urine culture result - monitor as outpatient (3) Elevated troponin: Mild troponin elevated of 0.124. 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 CXR without acute abnormalities -Resting echo shows no wall motion abnormality normal ejection fraction - no cardiac symptoms (4) Hyperglycemia: possible steroid induced vs. prediabetes/early diabetes- A1c 6.5 given Insulin while admitted BSGs improved 150s-212 discussed with Pharmacy Glycemic control Prednisone taper - relatively low dose, does not recommend Insulin or oral DM meds at this time further management, work up as outpatient (5) Intraductal carcinoma in situ of right breast: ER/SC positive. Follows with Dr. Metcalf -S/p lumpectomy in 2018 -Continue Arimidex (6) Hypertension: - elevated while admitted, asymptomatic likely from acute illness, anxiety -Continue clonidine, losartan - monitor (7) Hypothyroidism: Continue levothyroxine (8) Esophageal reflux: H/o gastritis in 2018 -Continue protonix DVT Ppx: SQ Lovenox given Code status: FULL PCP: [place] Dispo: Home with home health services ff up with PCP Dr. Barfield 02/04/19 Total Time Total Time Spent Total Time Spent (In Minutes): 45 minutes Discharge Plan Discharge Items Patient Disposition: Home - Self-Care Reason For Visit: BRONCHITIS,SUSPECTED UTI,TROP ELEVATION Discharge Diagnosis: ACUTE BRONCHITIS Discharge Goals: Decrease discomfort and Therapeutic intervention Activity: Resume your previous activity Lifting: Wait until after follow-up appointment Exercise/Sports: Wait until after follow-up appointment Driving/Machine Use Comment: NO DRIVING UNTIL RE-EVALUATED BY PRIMARY CARE PHYSICIAN Non-emergency contact: Primary Care Provider Call non-emergency contact if: you have any medication questions, your symptoms worsen and you have a fever Diet: Carb Consistent or DM2 and Heart Healthy Addtl Provider Instructions: PLEASE FOLLOW UP WITH PRIMARY CARE PHYSICIAN DR. SHE BARFIELD (ASSOCIATE OF DR. LEON) ON MONDAY FEBRUARY 04, 2019 AT 2:05PM. PLEASE REVIEW YOUR NEW MEDICATION LIST AND FOLLOW INSTRUCTIONS CAREFULLY. INCLUDE PROBIOTICS OR YOGURT IN YOUR DAILY DIET WHILE ON ANTIBIOTICS AND AT LEAST 1 WEEK AFTER COMPLETING ANTIBIOTIC COURSE. ALWAYS TAKE PREDNISONE WITH FOOD. DRINK PLENTY OF FLUIDS. Prescriptions: New doxycycline hyclate 100 mg capsule 100 mg PO BID 5 Days Qty: 10 RF: 0 prednisone 10 mg tablet 10 mg PO UD 9 Days Qty: 9 RF: 0 albuterol sulfate 90 mcg/actuation HFA aerosol inhaler 2 puffs INH Q4H PRN (Reason: shortness of breath or wheezing) Qty: 6.7 RF: 1 Continued losartan 50 mg Tablet 50 mg PO QAM RF: 0 ascorbic acid (vitamin C) [Vitamin C] 1,000 mg Tablet 1,000 mg PO QAM RF: 0 sulindac 150 mg Tablet 150 mg PO BID RF: 0 clonidine HCl 0.2 mg Tablet 0.2 mg PO BID RF: 0 lorazepam 0.5 mg Tablet 0.5 mg PO Q6H PRN (Reason: Anxiety) RF: 0 levothyroxine 112 mcg Capsule 112 mcg PO QAM RF: 0 anastrozole 1 mg tablet 1 mg PO DAILY RF: 0 aspirin 81 mg Tablet,Delayed Release (Dr/Ec) 81 mg PO DAILY RF: 0 pantoprazole 40 mg tablet,delayed release (DR/EC) 40 mg PO QAM RF: 0 montelukast 10 mg tablet 10 mg PO DAILY RF: 0 cholecalciferol (vitamin D3) [Vitamin D3] 1,000 unit Capsule 2,000 unit PO DAILY RF: 0 sumatriptan succinate 50 mg Tablet 50 mg PO DIRECTED MDD 200 MG/24 HOURS PRN (Reason: Migraine Headache) RF: 0 fluticasone propionate 50 mcg/actuation spray,suspension 2 spray intranasal DAILY RF: 0 cyclobenzaprine 5 mg Tablet 5 mg PO HS PRN (Reason: Muscle Spasm) RF: 0 melatonin 10 mg Tablet 10 mg PO HS PRN (Reason: Insomnia) RF: 0 Discontinued azithromycin 250 mg tablet See Rx Instructions .ROUTE .COMPLEX RF: 0 Stand-Alone Forms: [facility]/Other Patient Handouts: Prediabetes, Diabetes Meal Planning Discharge Orders: Discharge Order (Routine); Ordered 01/30/19 Ordered By: Casa Perry Admission Data Admit Date/Time: 01/28/19 20:34 Attending Provider: Casa Perry Admit Provider: Wilberto Bhatia Primary Care Provider: Navya Leon Other Providers: Cisco Ernst ; Wilberto Bhatia ; Ailyn Peterson Service: Telemetry Medical Other Interventions: Discharge Summary Assessment (RN) Last Done: 01/30/19 10:24 DC Date/Time DO NOT enter until pt leaves facility: 01/30/19 11:20
== END 2019-01-30 11:20 | disposition home or self-care (01) ==
LOC: ED 16:08 → 2N 16:08 → SUATTDRO 20:34 → 2N 22:01

== ENCOUNTER 2020-11-20 09:09 | Inpatient (IN) ==
[2020-11-20] MEDS ORDERED: OPTIRAY 350 500ml IV ONE (09:17)
--- NOTE | 2020-11-20 09:28 | CT Scan Report ---
CT SCAN OF THE BRAIN WITHOUT IV CONTRAST CLINICAL HISTORY: Strokelike symptoms. COMPARISON STUDY: CT of the brain dated 01/17/2019. TECHNIQUE: Unenhanced axial CT scan of the brain is performed from the vertex to the skull base. A do se lowering technique was utilized adhering to the principles of ALARA. FINDINGS: Brain parenchyma: There are age-related involutional changes noting moderate to advanced subcortical and periventricular microangiopathic change. There is no hemorrhage, mass effect, or evidence of acu te territorial ischemia by CT criteria. [place]-white matter differentiation is preserved. No extra-axia l fluid collection is seen. Calcification above the right mastoids along the tentorium is unchanged. Ventricles, sulci, cisterns: Prominent secondary to involutional change. Intracranial vasculature: There is atherosclerotic calcification of the cavernous carotid and vertebr al arteries. Calvarium: Unremarkable. Sinuses and mastoids: The visualized paranasal sinuses are clear. The mastoid air cells are well pneu matized. Orbits: The bony orbits are grossly intact. There are bilateral ocular lens implants. IMPRESSION: There is no hemorrhage, mass effect, or evidence of acute territorial ischemia by CT luke cummins. ACT 112: Negative or not required by law. Electronically signed by: Caleb Lemus M.D. 11/20/2020 9:26 AM
[2020-11-20 09:29] LABS: Basophils # (auto) 0.02 K/uL (0-0.2); Basophils % (auto) 0.3 %; Eosinophils # (auto) 0.22 K/uL (0-0.5); Eosinophils % (auto) 3.8 %; Hematocrit (blood only) 39.6 % (37-47); Hemoglobin 13.6 g/dL (12.0-16.0); Lymphocytes # (auto) 1.54 K/uL (1.2-3.4); Lymphocytes % (auto) 26.9 %; Mean Corpuscular Hemoglobin 27.7 pg (25-34); Mean Corpuscular Hgb Conc 34.3 g/dL (32-36); Mean Corpuscular Volume 80.7 fL (80-100); Mean Platelet Volume 9.7 fL (7.4-10.4); Monocytes # (auto) 0.58 K/uL (0.11-0.59); Monocytes % (auto) 10.1 %; Neutrophils # (auto) 3.36 K/uL (1.4-6.5); Neutrophils % (auto) 58.9 %; Platelet Count 205 K/uL (130-400); RDW Coefficient of Variation 15.4 % (11.5-14.5); RDW Standard Deviation 44.9 fL (36.4-46.3); Red Blood Count 4.91 M/uL (4.2-5.4); White Blood Count 5.72 K/uL (4.8-10.8)
[2020-11-20 09:40] LABS: Partial Thromboplastin Ratio 0.9; Partial Thromboplastin Time 24.1 Seconds (21.0-31.0); Prothrombin Time 10.5 Seconds (9.0-12.0)
--- NOTE | 2020-11-20 09:43 | CT Scan Report ---
HEAD & NECK CTA HISTORY: Stroke Like Symptoms TECHNIQUE: Multiaxial CT images of the head were performed following the intravenous administration o f contrast to evaluate the major cerebral vessels. Multiaxial CT images of the neck were also perform ed following the intravenous administration of contrast to evaluate the major cervical vessels. Maxim um intensity projection images were also obtained. A dose lowering technique was utilized adhering to the principles of ALARA. COMPARISON: None. FINDINGS: The superior sagittal sinus at the high convexity is not opacified. However, there is no evidence for dural venous sinus thrombosis. 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 Remaining dural venous sinuses appear patent. 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 This may be developmental. The dominant right vertebral artery and basilar artery are patent. Severely hypoplastic right P1 segment which is developmental. Otherwise, the bilateral childhood teacher are widely patent. Moderate calcified plaque within the proximal left c arotid siphon. No significant stenosis within the intracranial internal carotid arteries. The bilater al ACAs and MCAs show no significant stenosis, occlusion, or aneurysm. The aortic arch and proximal great vessels are widely patent. Mild focal narrowing within the mid l eft vertebral artery on image 166 due to the mass effect from the adjacent osteophytes. Otherwise, th e bilateral vertebral arteries are widely patent. Minimal calcified plaque within the bilateral carot id bulbs. No significant stenosis, occlusion, or dissection within the bilateral common or internal c arotid arteries. There is mild calcified plaque within the normal caliber aortic arch. The proximal g reat vessels are widely patent. There is a single mildly enlarged left sternoclavicular lymph node on image 90 measuring 14 x 10 mm. No pneumothorax. IMPRESSION: 1. 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 2. Otherwise, no significant stenosis, occlusion, or aneurysm identified within the [place]. 3. No significant stenosis, occlusion, or dissection identified within the carotid or vertebral arter ies. ACT 112: Negative or not required by law. Electronically signed by: Waqar Peterson M.D. 11/20/2020 9:41 AM
[2020-11-20] MEDS ORDERED: No Aspirin within 24 hrs of TPA for Stroke PO SCH (09:45)
[2020-11-20] MEDS ORDERED: LABETALOL HCL IV 5 MG/ML 20ML IV PRN (09:45)
[2020-11-20] MEDS ORDERED: TPA for Stroke IV STA (09:45)
[2020-11-20 09:52] LABS: Albumin Level 3.9 gm/dl (3.4-5.0); BUN Creatinine Ratio 29.3 (10-20); Calcium 10.7 mg/dl (8.5-10.1); Creatinine Clr Calc Pharmacy 83.6 ml/min; Est GFR (African American) 102.8; Est GFR (Non-African American) 88.7; Potassium 3.8 mmol/L (3.5-5.1)
[2020-11-20] MEDS ORDERED: Alteplase Bolus 7 MG in SYRINGE 0 ML IV ONE (10:00)
[2020-11-20] MEDS ORDERED: PRIMARY PLUMSET, PE LINED TUBING, 113 IN, NON-DEHP (2260-0500) IV ONE (10:01)
[2020-11-20] MEDS ORDERED: ALTEPLASE, RECOMBINANT 62 MG in EMPTY BAG 0 ML IV ONE (10:01)
[2020-11-20] MEDS: niCARdipine 25 MG in SODIUM CHLORIDE 0.9% 240 ML IV PRN ×4 (10:03→21:26)
[2020-11-20 10:07] LABS: Albumin Globulin Ratio 1.2 (0.9-2); Bilirubin,Total 0.6 mg/dl (0.2-1); Globulin 3.2 gm/dl (2.5-4.0); Total Protein 7.1 gm/dl (6.4-8.2); Troponin I 0.367 ng/ml (0-0.045)
[2020-11-20] MEDS ORDERED: ACETAMINOPHEN 1,000 MG/100 ML VIAL IV STA (11:33)
[2020-11-20] MEDS ORDERED: ASPIRIN 300 MG SUPP PR ONE (11:33)
--- NOTE | 2020-11-20 11:49 | Emergency Department Note ---
History of Present Illness General Chief complaint: Stroke Alert Time Seen by Provider: 11/20/20 09:11 Source: patient Mode of arrival: EMS Limitations: no limitations History of Present Illness Provider complaint: CVA Maximum Pain Intensity: 5 This is a 80-year-old female who presents to the ED with a CVA symptoms. The patient presented by EMS. Per EMS, the last known well was at 6 AM during breakfast. It is uncertain how EMS came to this conclusion as the patient does not eat with other people. The patient did admit to making herself breakfast this morning, however. The patient's main symptoms appear to be expressive aphasia. The patient texted her granddaughter around 8:30 AM stating that she feels that she may have had a stroke. The granddaughter then called 911 and the patient was transported here by EMS. The granddaughter arrived quite a while later. EMS felt that she had a slight left-sided facial droop and some left- sided weakness and she was hypertensive. She did complain of a frontal headache to EMS as well as here. A stroke alert was called prior to the patient's arrival. Patient is somewhat of a difficult historian as she has some difficult with expressing herself. She lives alone. Home Medications Medication Instructions Recorded Confirmed Type anastrozole 1 mg tablet 1 mg PO QAM 04/10/19 07/08/20 History levothyroxine 112 mcg tablet 112 mcg PO QAM tab 04/10/19 07/08/20 History losartan 25 mg tablet 25 mg PO QAM #90 tab 04/10/19 07/08/20 History sulindac 150 mg tablet 150 mg PO BID tab 04/10/19 07/08/20 History sumatriptan succinate 50 mg tablet 50 mg PO Q2H PRN tab 04/10/19 07/08/20 History calcium carbonate 600 mg calcium 600 mg PO QAM 08/16/19 07/08/20 History (1,500 mg) tablet cholecalciferol (vitamin D3) 50 2,000 units PO QAM 08/16/19 07/08/20 History mcg (2,000 unit) tablet clonidine HCl 0.2 mg tablet 0.2 mg PO BID 08/16/19 07/08/20 History acetaminophen 500 mg tablet 500 mg PO Q6H PRN 08/18/20 08/18/20 History ascorbate calcium (vitamin C) 500 1 g PO QAM tab 08/18/20 History mg tablet melatonin 10 mg tablet 10 mg PO HS 08/18/20 History menthol 16 % topical spray 1 spray TOPICAL HS ml 08/18/20 08/18/20 History azelastine 137 mcg (0.1 %) nasal 2 spray INTRANASAL QAM #30 ml 10/27/20 Rx spray aerosol fluticasone propionate 50 2 spray INTRANASAL DAILY #15.8 g 10/27/20 Rx mcg/actuation nasal spray,suspension Allergies Allergy/AdvReac Type Severity Reaction Status Date / Time ibuprofen Allergy Mild TACHYCARDIA Verified 11/20/20 11:48 nickel Allergy Mild RASH Verified 11/20/20 11:48 oxycodone Allergy Mild Nausea/Vomi Verified 11/20/20 11:48 ting Penicillins Allergy Mild Rash and Verified 11/20/20 11:48 throat tightness ranitidine Allergy Mild rash Verified 11/20/20 11:48 Sulfa (Sulfonamide Allergy Mild rash Verified 11/20/20 11:48 Antibiotics) ciprofloxacin AdvReac Mild GI SYMPTOMS Verified 11/20/20 11:48 meclizine AdvReac Mild GI SYMPTOMS Verified 11/20/20 11:48 Cipro AdvReac Unknown GI SYMPTOMS Verified 03/01/18 12:07 Past Med/Surg History Medical History Afib episodic (2014), sinus rhythm per 01/2019 EKG Anxiety Arthritis Hearing deficit Hx of gastric ulcer HX: breast cancer 3 years ago Hypertension Hypothyroidism Insomnia Migraine Osteoarthritis Prediabetes Restless leg syndrome Stomach ulcer Urinary symptom or sign Surgical History History of cataract surgery BILAT History of colonoscopy History of endoscopic sinus surgery History of esophagogastroduodenoscopy (EGD) History of tooth extraction History of total abdominal hysterectomy and bilateral salpingo-oophorectomy Hx of lumpectomy LEFT BREAST (RADIATION) Nausea and vomiting after administration of anesthetic agent Trigger finger THUMB/LIGAMENT SURGERY> BILAT Family History Mother Hearing loss Hypertension Heart disease Father Hearing loss Hypertension Cancer Brother Stroke Other Cancer of kidney Social History (Reviewed 11/20/20 @ 11:40 by ISAIAS Espinosa Smoking Status: Former smoker Second Hand Exposure: No; Hx Alcohol Use: Yes Alcohol type: wine Hx Substance Use: No Preferred Language: Yi Communication Ability: Effective Industrial Roofer Required: No Beliefs That Will Affect Care: None Current Living Situation: Alone Feels Safe at Home: Yes Assistive Devices: Cane, Contacts, Denture - Upper, Denture - Lower and Hearing Aid - Bilateral Review of Systems A total of 10 systems reviewed and were otherwise negative Physical Exam Vital Signs Vital Signs - 24 hr 11/20/20 09:30 11/20/20 09:31 11/20/20 09:33 Temperature Temperature Source Pulse Rate 91 H 91 H 88 Pulse Rate from SpO2 Sensor 94 H 91 H 90 Respiratory Rate 20 23 22 Respiratory Effort / Characteristics Respiratory Depth Blood Pressure 229/149 H Blood Pressure Mean 182 175 Blood Pressure Position Pulse Oximetry 93 94 94 Oxygen Delivery Method Sepsis Recent Fever Within 48 Hours Sepsis New/Unexplained Change in Mental Status Sepsis Action Taken by Nursing 11/20/20 09:37 11/20/20 09:40 11/20/20 09:50 Temperature 36.8 C Temperature Source Oral Pulse Rate 77 78 75 Pulse Rate from SpO2 Sensor 79 75 Respiratory Rate 19 18 22 Respiratory Effort / Characteristics Non-Labored Respiratory Depth Normal Blood Pressure 229/149 H Blood Pressure Mean 175 Blood Pressure Position Sitting Pulse Oximetry 94 92 94 Oxygen Delivery Method Room Air Sepsis Recent Fever Within 48 Hours No Sepsis New/Unexplained Change in Mental Status No Sepsis Action Taken by Nursing No Action Required 11/20/20 10:00 11/20/20 10:10 11/20/20 10:11 Temperature Temperature Source Pulse Rate 76 79 72 Pulse Rate from SpO2 Sensor 77 80 70 Respiratory Rate 27 H 18 20 Respiratory Effort / Characteristics Respiratory Depth Blood Pressure 191/114 H Blood Pressure Mean 139 Blood Pressure Position Pulse Oximetry 93 90 93 Oxygen Delivery Method Sepsis Recent Fever Within 48 Hours Sepsis New/Unexplained Change in Mental Status Sepsis Action Taken by Nursing 11/20/20 10:14 11/20/20 10:20 11/20/20 10:22 Temperature Temperature Source Pulse Rate 72 80 71 Pulse Rate from SpO2 Sensor 73 78 71 Respiratory Rate 30 H 22 22 Respiratory Effort / Characteristics Respiratory Depth Blood Pressure 189/122 H 191/89 H Blood Pressure Mean 144 123 Blood Pressure Position Pulse Oximetry 93 90 92 Oxygen Delivery Method Sepsis Recent Fever Within 48 Hours Sepsis New/Unexplained Change in Mental Status Sepsis Action Taken by Nursing 11/20/20 10:23 11/20/20 10:25 11/20/20 10:26 Temperature Temperature Source Pulse Rate 78 86 76 Pulse Rate from SpO2 Sensor 76 85 77 Respiratory Rate 21 30 H 19 Respiratory Effort / Characteristics Respiratory Depth Blood Pressure 192/122 H 179/137 H Blood Pressure Mean 145 151 Blood Pressure Position Pulse Oximetry 92 91 91 Oxygen Delivery Method Sepsis Recent Fever Within 48 Hours Sepsis New/Unexplained Change in Mental Status Sepsis Action Taken by Nursing 11/20/20 10:27 11/20/20 10:28 11/20/20 10:29 Temperature Temperature Source Pulse Rate 75 74 81 Pulse Rate from SpO2 Sensor 75 74 80 Respiratory Rate 26 H 21 19 Respiratory Effort / Characteristics Respiratory Depth Blood Pressure Blood Pressure Mean Blood Pressure Position Pulse Oximetry 92 95 92 Oxygen Delivery Method Sepsis Recent Fever Within 48 Hours Sepsis New/Unexplained Change in Mental Status Sepsis Action Taken by Nursing 11/20/20 10:30 11/20/20 10:31 11/20/20 10:32 Temperature Temperature Source Pulse Rate 76 82 73 Pulse Rate from SpO2 Sensor 75 81 75 Respiratory Rate 21 28 H 25 H Respiratory Effort / Characteristics Respiratory Depth Blood Pressure 159/94 H Blood Pressure Mean 115 Blood Pressure Position Pulse Oximetry 92 93 94 Oxygen Delivery Method Sepsis Recent Fever Within 48 Hours Sepsis New/Unexplained Change in Mental Status Sepsis Action Taken by Nursing 11/20/20 10:33 11/20/20 10:34 11/20/20 10:35 Temperature Temperature Source Pulse Rate 83 77 77 Pulse Rate from SpO2 Sensor 80 77 77 Respiratory Rate 21 24 22 Respiratory Effort / Characteristics Respiratory Depth Blood Pressure Blood Pressure Mean Blood Pressure Position Pulse Oximetry 93 91 92 Oxygen Delivery Method Sepsis Recent Fever Within 48 Hours Sepsis New/Unexplained Change in Mental Status Sepsis Action Taken by Nursing 11/20/20 10:36 11/20/20 10:37 11/20/20 10:38 Temperature Temperature Source Pulse Rate 75 83 78 Pulse Rate from SpO2 Sensor 76 81 79 Respiratory Rate 19 19 22 Respiratory Effort / Characteristics Respiratory Depth Blood Pressure Blood Pressure Mean Blood Pressure Position Pulse Oximetry 90 92 92 Oxygen Delivery Method Sepsis Recent Fever Within 48 Hours Sepsis New/Unexplained Change in Mental Status Sepsis Action Taken by Nursing 11/20/20 10:39 11/20/20 10:40 11/20/20 10:42 Temperature Temperature Source Pulse Rate 78 74 73 Pulse Rate from SpO2 Sensor 78 75 73 Respiratory Rate 21 24 22 Respiratory Effort / Characteristics Respiratory Depth Blood Pressure 170/83 H Blood Pressure Mean 112 Blood Pressure Position Pulse Oximetry 93 92 93 Oxygen Delivery Method Sepsis Recent Fever Within 48 Hours Sepsis New/Unexplained Change in Mental Status Sepsis Action Taken by Nursing 11/20/20 10:43 11/20/20 10:44 11/20/20 10:45 Temperature Temperature Source Pulse Rate 73 73 72 Pulse Rate from SpO2 Sensor 73 73 73 Respiratory Rate 19 23 22 Respiratory Effort / Characteristics Respiratory Depth Blood Pressure Blood Pressure Mean Blood Pressure Position Pulse Oximetry 92 92 92 Oxygen Delivery Method Sepsis Recent Fever Within 48 Hours Sepsis New/Unexplained Change in Mental Status Sepsis Action Taken by Nursing 11/20/20 10:46 11/20/20 10:47 11/20/20 10:49 Temperature Temperature Source Pulse Rate 85 76 75 Pulse Rate from SpO2 Sensor 83 75 81 Respiratory Rate 17 21 18 Respiratory Effort / Characteristics Respiratory Depth Blood Pressure 205/77 H Blood Pressure Mean 119 Blood Pressure Position Pulse Oximetry 91 90 93 Oxygen Delivery Method Sepsis Recent Fever Within 48 Hours Sepsis New/Unexplained Change in Mental Status Sepsis Action Taken by Nursing 11/20/20 10:50 11/20/20 10:51 11/20/20 10:52 Temperature Temperature Source Pulse Rate 75 77 72 Pulse Rate from SpO2 Sensor 75 77 74 Respiratory Rate 20 23 20 Respiratory Effort / Characteristics Respiratory Depth Blood Pressure 184/109 H Blood Pressure Mean 134 Blood Pressure Position Pulse Oximetry 92 91 92 Oxygen Delivery Method Sepsis Recent Fever Within 48 Hours Sepsis New/Unexplained Change in Mental Status Sepsis Action Taken by Nursing 11/20/20 10:54 11/20/20 10:55 11/20/20 10:56 Temperature Temperature Source Pulse Rate 75 80 75 Pulse Rate from SpO2 Sensor 76 76 74 Respiratory Rate 18 21 18 Respiratory Effort / Characteristics Respiratory Depth Blood Pressure Blood Pressure Mean Blood Pressure Position Pulse Oximetry 91 92 92 Oxygen Delivery Method Sepsis Recent Fever Within 48 Hours Sepsis New/Unexplained Change in Mental Status Sepsis Action Taken by Nursing 11/20/20 10:57 11/20/20 10:58 11/20/20 10:59 Temperature Temperature Source Pulse Rate 74 73 74 Pulse Rate from SpO2 Sensor 74 75 77 Respiratory Rate 20 16 23 Respiratory Effort / Characteristics Respiratory Depth Blood Pressure Blood Pressure Mean Blood Pressure Position Pulse Oximetry 92 93 93 Oxygen Delivery Method Sepsis Recent Fever Within 48 Hours Sepsis New/Unexplained Change in Mental Status Sepsis Action Taken by Nursing 11/20/20 11:00 11/20/20 11:01 11/20/20 11:03 Temperature Temperature Source Pulse Rate 94 H 74 85 Pulse Rate from SpO2 Sensor 88 75 85 Respiratory Rate 22 16 26 H Respiratory Effort / Characteristics Respiratory Depth Blood Pressure 203/115 H Blood Pressure Mean 144 Blood Pressure Position Pulse Oximetry 92 94 92 Oxygen Delivery Method Sepsis Recent Fever Within 48 Hours Sepsis New/Unexplained Change in Mental Status Sepsis Action Taken by Nursing 11/20/20 11:04 11/20/20 11:05 11/20/20 11:06 Temperature Temperature Source Pulse Rate 76 86 77 Pulse Rate from SpO2 Sensor 75 86 77 Respiratory Rate 22 27 H 18 Respiratory Effort / Characteristics Respiratory Depth Blood Pressure Blood Pressure Mean Blood Pressure Position Pulse Oximetry 91 92 93 Oxygen Delivery Method Sepsis Recent Fever Within 48 Hours Sepsis New/Unexplained Change in Mental Status Sepsis Action Taken by Nursing 11/20/20 11:07 11/20/20 11:08 11/20/20 11:09 Temperature Temperature Source Pulse Rate 73 86 85 Pulse Rate from SpO2 Sensor 84 87 85 Respiratory Rate 22 24 24 Respiratory Effort / Characteristics Respiratory Depth Blood Pressure Blood Pressure Mean Blood Pressure Position Pulse Oximetry 91 93 92 Oxygen Delivery Method Sepsis Recent Fever Within 48 Hours Sepsis New/Unexplained Change in Mental Status Sepsis Action Taken by Nursing 11/20/20 11:10 11/20/20 11:11 11/20/20 11:12 Temperature Temperature Source Pulse Rate 75 76 83 Pulse Rate from SpO2 Sensor 75 79 83 Respiratory Rate 22 17 15 Respiratory Effort / Characteristics Respiratory Depth Blood Pressure Blood Pressure Mean Blood Pressure Position Pulse Oximetry 94 94 94 Oxygen Delivery Method Sepsis Recent Fever Within 48 Hours Sepsis New/Unexplained Change in Mental Status Sepsis Action Taken by Nursing 11/20/20 11:13 11/20/20 11:14 11/20/20 11:15 Temperature Temperature Source Pulse Rate 83 76 75 Pulse Rate from SpO2 Sensor 81 76 76 Respiratory Rate 19 20 23 Respiratory Effort / Characteristics Respiratory Depth Blood Pressure Blood Pressure Mean Blood Pressure Position Pulse Oximetry 94 94 94 Oxygen Delivery Method Sepsis Recent Fever Within 48 Hours Sepsis New/Unexplained Change in Mental Status Sepsis Action Taken by Nursing 11/20/20 11:16 11/20/20 11:17 11/20/20 11:18 Temperature Temperature Source Pulse Rate 76 77 85 Pulse Rate from SpO2 Sensor 77 77 77 Respiratory Rate 19 20 21 Respiratory Effort / Characteristics Respiratory Depth Blood Pressure 207/99 H Blood Pressure Mean 135 Blood Pressure Position Pulse Oximetry 93 92 93 Oxygen Delivery Method Room Air Room Air Room Air Sepsis Recent Fever Within 48 Hours Sepsis New/Unexplained Change in Mental Status Sepsis Action Taken by Nursing 11/20/20 11:19 11/20/20 11:20 11/20/20 11:21 Temperature Temperature Source Pulse Rate 90 87 89 Pulse Rate from SpO2 Sensor 82 87 82 Respiratory Rate 22 24 20 Respiratory Effort / Characteristics Respiratory Depth Blood Pressure Blood Pressure Mean Blood Pressure Position Pulse Oximetry 93 91 93 Oxygen Delivery Method Room Air Room Air Room Air Sepsis Recent Fever Within 48 Hours Sepsis New/Unexplained Change in Mental Status Sepsis Action Taken by Nursing 11/20/20 11:22 11/20/20 11:23 Temperature Temperature Source Pulse Rate 79 80 Pulse Rate from SpO2 Sensor 79 79 Respiratory Rate 17 23 Respiratory Effort / Characteristics Respiratory Depth Blood Pressure Blood Pressure Mean Blood Pressure Position Pulse Oximetry 96 96 Oxygen Delivery Method Room Air Sepsis Recent Fever Within 48 Hours Sepsis New/Unexplained Change in Mental Status Sepsis Action Taken by Nursing CONSTITUTIONAL/VITAL SIGNS: Reviewed / noted above. GENERAL: Non-toxic in appearance. INTEGUMENTARY: Warm, dry, and [place]. HEAD: Normocephalic. EYES: without scleral icterus or trauma. ENT/OROPHARYNX: clear and moist. LYMPHADENOPATHY/NECK: Is supple without lymphadenopathy or meningismus. RESPIRATORY: Lungs clear and equal. CARDIOVASCULAR: Regular rate and rhythm. GI/ABDOMEN: Soft and nontender. No organomegaly or pulsatile mass. No rebound or guarding. Normal bowel sounds. EXTREMITIES: Warm and well perfused. BACK: No CVA tenderness. NEUROLOGICAL: No pronator drift. Cerebellar testing is grossly normal. Does not always follow commands. When expressing herself, the patient intermittently states the wrong words and sometimes appears frustrated and does not attempt to answer as she states that she does not know. No gross focal deficits in the upper and lower extremities. No clear facial droop. PSYCHIATRIC: normal affect. MUSCULOSKELETAL: Normally developed with good muscle tone. TRIAGE NURSING DOCUMENTATION REVIEWED. Course Administered Medications Nicardipine HCl 25 mg/ Sodium (Chloride) 250 mls @ 50 mls/hr IV .Q5H PRN; Protocol PRN Reason: SBP above 185 or DBP above 110 Stop: 12/20/20 09:44 Last Titration: 11/20/20 11:16 Dose: 7.5 mg/hr, 75 mls/hr Documented by: [id number] Titration: 11/20/20 10:57 Dose: 5 mg/hr, 50 mls/hr Documented by: [id number] Titration: 11/20/20 10:43 Dose: 2.5 mg/hr, 25 mls/hr Documented by: [id number] Titration: 11/20/20 10:42 Dose: 5 mg/hr, 50 mls/hr Documented by: [id number] Titration: 11/20/20 10:23 Dose: 7.5 mg/hr, 75 mls/hr Documented by: [id number] Admin: 11/20/20 10:03 Dose: 5 mg/hr, 50 mls/hr Documented by: [id number] Cosigned by: [id number] Labetalol HCl (Labetalol Hcl Iv 5 Mg/Ml 20ml) 10 mg IV Q10M PRN PRN Reason: SBP above 185 or DBP above 110 Last Admin: 11/20/20 10:02 Dose: 10 mg Documented by: [id number] Cosigned by: [id number] Discontinued Medications Ioversol (Optiray 350 500ml) 110 ml IV ONCE ONE Stop: 11/20/20 09:18 Last Admin: 11/20/20 09:18 Dose: 110 ml Documented by: [id number] Critical Care Time Critical Care Time: Yes Total Critical Care Time: 70 I have personally spent 70 minutes of critical care time in the direct management of this patient. This includes bedside care, interpretation of diagnostic studies, and testing, discussion with consultants, patient, and family members, and other required patient management activities. This 70 minutes is in excess of all separately billable procedures. Medical Decision Making Differential Diagnosis Differential includes acute coronary syndrome, myocardial infarction, CVA, TIA, anemia, infection, pneumonia, UTI, pyelonephritis, poor nutrition, dehydration, electrolyte disturbance,hypoglycemia. Medical Records Attestation: I reviewed the patient's medical records. Home Medications Current Medication List: was personally reviewed by me Laboratory Data Attestation: I reviewed the patient's lab results. Result diagrams: 11/20/20 08:30 11/20/20 08:30 Lab Results 11/20/20 11/20/20 11/20/20 Range/Units 08:30 08:30 08:30 WBC 5.72 (4.8-10.8) K/uL RBC 4.91 (4.2-5.4) M/uL Hgb 13.6 (12.0-16.0) g/dL Hct 39.6 (37-47) % MCV 80.7 (80-100) fL MCH 27.7 (25-34) pg MCHC 34.3 (32-36) g/dL RDW Std Deviation 44.9 (36.4-46.3) fL RDW Coeff of Landry 15.4 H (11.5-14.5) % Plt Count 205 (130-400) K/uL MPV 9.7 (7.4-10.4) fL Immature Gran % (Auto) 0.0 % Neut % (Auto) 58.9 % Lymph % (Auto) 26.9 % [place] % (Auto) 10.1 % Eos % (Auto) 3.8 % Baso % (Auto) 0.3 % Neut # (Auto) 3.36 (1.4-6.5) K/uL Lymph # (Auto) 1.54 (1.2-3.4) K/uL [place] # (Auto) 0.58 (0.11-0.59) K/uL Eos # (Auto) 0.22 (0-0.5) K/uL Baso # (Auto) 0.02 (0-0.2) K/uL Immature Gran # (Auto) 0.00 (0.00-0.02) K/uL PT 10.5 (9.0-12.0) Seconds INR 1.0 (0.9-1.1) APTT 24.1 (21.0-31.0) Seconds PTT Ratio 0.9 Sodium 142 (136-145) mmol/L Potassium 3.8 (3.5-5.1) mmol/L Chloride 111 H (98-107) mmol/L Carbon Dioxide 24 (21-32) mmol/L Anion Gap 7.0 (3-11) BUN 16 (7-18) mg/dl Creatinine 0.56 L (0.6-1.2) mg/dl Est Cr Clr Drug Dosing 83.6 ml/min Est GFR ( Amer) 102.8 Est GFR (Non-Af Amer) 88.7 BUN/Creatinine Ratio 29.3 H (10-20) Glucose 135 H (70-99) mg/dl Calcium 10.7 H (8.5-10.1) mg/dl Magnesium 2.0 (1.8-2.4) mg/dl Total Bilirubin 0.6 (0.2-1) mg/dl AST 28 (15-37) U/L ALT 50 (12-78) U/L Alkaline Phosphatase 50 (45-117) U/L Troponin I 0.367 H* (0-0.045) ng/ml Total Protein 7.1 (6.4-8.2) gm/dl Albumin 3.9 (3.4-5.0) gm/dl Globulin 3.2 (2.5-4.0) gm/dl Albumin/Globulin Ratio 1.2 (0.9-2) Blood Type Antibody Screen 11/20/20 Range/Units 09:33 WBC (4.8-10.8) K/uL RBC (4.2-5.4) M/uL Hgb (12.0-16.0) g/dL Hct (37-47) % MCV (80-100) fL MCH (25-34) pg MCHC (32-36) g/dL RDW Std Deviation (36.4-46.3) fL RDW Coeff of Landry (11.5-14.5) % Plt Count (130-400) K/uL MPV (7.4-10.4) fL Immature Gran % (Auto) % Neut % (Auto) % Lymph % (Auto) % [place] % (Auto) % Eos % (Auto) % Baso % (Auto) % Neut # (Auto) (1.4-6.5) K/uL Lymph # (Auto) (1.2-3.4) K/uL [place] # (Auto) (0.11-0.59) K/uL Eos # (Auto) (0-0.5) K/uL Baso # (Auto) (0-0.2) K/uL Immature Gran # (Auto) (0.00-0.02) K/uL PT (9.0-12.0) Seconds INR (0.9-1.1) APTT (21.0-31.0) Seconds PTT Ratio Sodium (136-145) mmol/L Potassium (3.5-5.1) mmol/L Chloride (98-107) mmol/L Carbon Dioxide (21-32) mmol/L Anion Gap (3-11) BUN (7-18) mg/dl Creatinine (0.6-1.2) mg/dl Est Cr Clr Drug Dosing ml/min Est GFR ( Amer) Est GFR (Non-Af Amer) BUN/Creatinine Ratio (10-20) Glucose (70-99) mg/dl Calcium (8.5-10.1) mg/dl Magnesium (1.8-2.4) mg/dl Total Bilirubin (0.2-1) mg/dl AST (15-37) U/L ALT (12-78) U/L Alkaline Phosphatase (45-117) U/L Troponin I (0-0.045) ng/ml Total Protein (6.4-8.2) gm/dl Albumin (3.4-5.0) gm/dl Globulin (2.5-4.0) gm/dl Albumin/Globulin Ratio (0.9-2) Blood Type A Negative Antibody Screen NEGATIVE Imaging Data Radiologist's Impression: Head CT 11/20/20 09:14 CT SCAN OF THE BRAIN WITHOUT IV CONTRAST CLINICAL HISTORY: Strokelike symptoms. COMPARISON STUDY: CT of the brain dated 01/17/2019. TECHNIQUE: Unenhanced axial CT scan of the brain is performed from the vertex to the skull base. A dose lowering technique was utilized adhering to the princip les of THOMAS. FINDINGS: Brain parenchyma: There are age-related involutional changes noting moderate to advanced subcortical and periventricular microangiopathic change. There is no hemorrhage, mass effect, or evidence of acute territorial ischemia by CT criteria. [place]-white matter differentiation is preserved. No extra-axial fluid collection is seen. Calcification above the right mastoids along the tentorium is unchanged. Ventricles, sulci, cisterns: Prominent secondary to involutional change. Intracranial vasculature: There is atherosclerotic calcification of the cavernous carotid and vertebral arteries. Calvarium: Unremarkable. Sinuses and mastoids: The visualized paranasal sinuses are clear. The mastoid air cells are well pneumatized. Orbits: The bony orbits are grossly intact. There are bilateral ocular lens implants. IMPRESSION: There is no hemorrhage, mass effect, or evidence of acute territorial ischemia by CT criteria. ACT 112: Negative or not required by law. Electronically signed by: Caleb Lemus M.D. 11/20/2020 9:26 AM Head CTA 11/20/20 09:14 HEAD & NECK CTA HISTORY: Stroke Like Symptoms TECHNIQUE: Multiaxial CT images of the head were performed following the intravenous administration of contrast to evaluate the major cerebral vessels. Multiaxial CT images of the neck were also performed following the intravenous administration of contrast to evaluate the major cervical vessels. Maximum intensity projection images were also obtained. A dose lowering technique was utilized adhering to the principles of ALARA. COMPARISON: None. FINDINGS: The superior sagittal sinus at the high convexity is not opacified. However, there is no evidence for dural venous sinus thrombosis. 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 Remaining dural venous sinuses appear patent. 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 This may be developmental. The dominant right vertebral artery and basilar artery are patent. Severely hypoplastic right P1 segment which is developmental. Otherwise, the bilateral account collector are widely patent. Moderate calcified plaque within the proximal left carotid siphon. No significant stenosis within the intracranial internal carotid arteries. The bilateral ACAs and MCAs show no significant stenosis, occlusion, or aneurysm. The aortic arch and proximal great vessels are widely patent. Mild focal narrowing within the mid left vertebral artery on image 166 due to the mass effect from the adjacent osteophytes. Otherwise, the bilateral vertebral arteries are widely patent. Minimal calcified plaque within the bilateral carotid bulbs. No significant stenosis, occlusion, or dissection within the bilateral common or internal carotid arteries. There is mild calcified plaque within the normal caliber aortic arch. The proximal great vessels are widely patent. There is a single mildly enlarged left sternoclavicular lymph node on image 90 measuring 14 x 10 mm. No pneumothorax. IMPRESSION: 1. 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 2. Otherwise, no significant stenosis, occlusion, or aneurysm identified within the [place]. 3. No significant stenosis, occlusion, or dissection identified within the carotid or vertebral arteries. ACT 112: Negative or not required by law. Electronically signed by: Waqar Peterson M.D. 11/20/2020 9:41 AM Neck CTA 11/20/20 09:14 HEAD & NECK CTA HISTORY: Stroke Like Symptoms TECHNIQUE: Multiaxial CT images of the head were performed following the intravenous administration of contrast to evaluate the major cerebral vessels. Multiaxial CT images of the neck were also performed following the intravenous administration of contrast to evaluate the major cervical vessels. Maximum inten sity projection images were also obtained. A dose lowering technique was utilized adhering to the principles of ALARA. COMPARISON: None. FINDINGS: The superior sagittal sinus at the high convexity is not opacified. However, there is no evidence for dural venous sinus thrombosis. 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 Remaining dural venous sinuses appear patent. 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 This may be developmental. The dominant right vertebral artery and basilar artery are patent. Severely hypoplastic right P1 segment which is developmental. Otherwise, the bilateral account collector are widely patent. Moderate calcified plaque within the proximal left carotid siphon. No significant stenosis within the intracranial internal carotid arteries. The bilateral ACAs and MCAs show no significant stenosis, occlusion, or aneurysm. The aortic arch and proximal great vessels are widely patent. Mild focal narrowing within the mid left vertebral artery on image 166 due to the mass effect from the adjacent osteophytes. Otherwise, the bilateral vertebral arteries are widely patent. Minimal calcified plaque within the bilateral carotid bulbs. No significant stenosis, occlusion, or dissection within the bilateral common or internal carotid arteries. There is mild calcified plaque within the normal caliber aortic arch. The proximal great vessels are widely patent. There is a single mildly enlarged left sternoclavicular lymph node on image 90 measuring 14 x 10 mm. No pneumothorax. IMPRESSION: 1. 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 2. Otherwise, no significant stenosis, occlusion, or aneurysm identified within the [place]. 3. No significant stenosis, occlusion, or dissection identified within the carotid or vertebral arteries. ACT 112: Negative or not required by law. Electronically signed by: Waqar Peterson M.D. 11/20/2020 9:41 AM ECG Data Attestation: I personally reviewed and interpreted this ECG as follows: Indication: + weakness Rate (beats per minute): 95 Rhythm: + normal sinus ECG Intervals/blocks: + Normal QT-c ECG ST segments: no ST elevation ECG Findings: no PVCs MDM Narrative Patient presents with CVA with hypertension. Her symptoms could represent a CVA with expressive aphasia versus hypertensive emergency. The patient was given IV labetalol followed by IV nicardipine. Initially felt the patient might be a candidate for TPA and the TPA was mixed but was not given as the patient's timeframe of onset of symptoms could not be clearly delineated after the patient's family arrived. The patient's granddaughter arrived and gave him some additional history. As details are noted above. Stroke alert was called prior to the patient's arrival. Dr. Redding from [facility] evaluated the patient. After full evaluation, the patient was not given TPA as the timeframe was more than 4-1/2 hours past the EMS reported last known well of 6 AM and the last known well time could not be clearly delineated as the patient does not live with anyone and we could not establish a clear last known well time talking to family or staff at the facility where she resides. She was given rectal aspirin and her blood pressure is to be maintained less than 180/90 per the stroke neurologist. The patient troponin was noted to be elevated slightly. The rest of her blood work was unremarkable. CT scans are noted above. I spoke with the hospitalist, who will see the patient for further inpatient evaluation and care. Impression & Plan Acute CVA (cerebrovascular accident), Hypertensive emergency Discharge Plan Visit Data Chief Complaint: Stroke Alert ED Provider: Taco Nunez Discharge Problem: Acute CVA (cerebrovascular accident), Hypertensive emergency Patient Disposition: Being Evaluated by Hospitalist Forms Stand Alone Forms: My [facility], Virtual Emergency Department, Important Visit Information Prescriptions Prescriptions: No Action acetaminophen [Tylenol Extra Strength] 500 mg tablet 500 mg PO Q6H PRN (Reason: Pain) RF: 0 Icy Hot (menthol) 16 % aerosol,spray 1 spray topical HS RF: 0 calcium carbonate [Calcium 600] 600 mg calcium (1,500 mg) tablet 600 mg PO QAM RF: 0 cholecalciferol (vitamin D3) 2,000 unit tablet 2,000 units PO QAM RF: 0 clonidine HCl 0.2 mg tablet 0.2 mg PO BID RF: 0 ascorbate calcium (vitamin C) 500 mg tablet 1 g PO QAM RF: 0 melatonin 10 mg tablet 10 mg PO HS RF: 0 azelastine 137 mcg (0.1 %) aerosol,spray 2 spray intranasal QAM Qty: 30 RF: 5 fluticasone propionate 50 mcg/actuation spray,suspension 2 spray intranasal DAILY Qty: 15.8 RF: 5 losartan 25 mg tablet 25 mg PO QAM Qty: 90 RF: 0 levothyroxine 112 mcg tablet 112 mcg PO QAM RF: 0 anastrozole 1 mg tablet 1 mg PO QAM RF: 0 sulindac 150 mg tablet 150 mg PO BID RF: 0 sumatriptan succinate 50 mg tablet 50 mg PO Q2H PRN (Reason: migraine headache) RF: 0 Referrals Referrals: Navya Prescott DO [Primary Care Provider] -
[2020-11-20] MEDS ORDERED: HYDROmorphone INJ 0.5 MG/0.5 ML SYR ONE (12:01)
[2020-11-20] MEDS ORDERED: HYDROmorphone INJ 0.5 MG/0.5 ML SYR IV STA (12:04)
[2020-11-20] MEDS ORDERED: ONDANSETRON INJ 2 MG/ML 2 ML VIAL ONE (12:09)
[2020-11-20] MEDS ORDERED: ONDANSETRON INJ 2 MG/ML 2 ML VIAL IV STA (12:11)
[2020-11-20 12:58] LABS: Influenza A virus by PCR Negative (Neg); Influenza B virus by PCR Negative (Neg); RSV by PCR Negative (Neg); SARS CoV2 RNA(COVID-19) InHosp NEGATIVE (Negative)
--- NOTE | 2020-11-20 14:55 | History and Physical Report ---
DATE OF ADMISSION: 11/20/2020 CHIEF COMPLAINT: Expressive aphasia. HISTORY OF PRESENT ILLNESS: A 80-year-old female with past medical history significant for hypothyroidism, diabetes, hypertension, gastritis, history of intraductal carcinoma in situ of right breast, anxiety. The patient lives in [facility] drives locally and she recently as per PCP and as per epic notes has some memory issues. Today, the patient says she got up around 6:00 a.m. and she brushed her teeth and she made her own breakfast, but at around 8:07 a.m., she texted her granddaughter that she is having stroke and EMS was called. Question of that she woke up and ate breakfast at 6:00 a.m. and she has had some left-sided facial droop and some left-sided weakness and was hypertensive and she was complaining of frontal headache and she was brought here by EMS. Exact time was difficult to establish as per the ER because she did not eat breakfast with other people in the apartment, so even if it is at 6:00 a.m., she was out of the window about 4-1/2 hours. Initial CAT scan and CTA of the head and neck were unremarkable. Initially, the plan was to give TPA, but the TPA was canceled because not well known time and the patient seems to be improving. Thought her symptoms could be fro hypertensive emergency. She still complains of headache. Her blood pressure was high and she was given labetalol and started on nicardipine drip. Granddaughter in the room helping with history. The patient is very hard of hearing, complains of severe headache and nausea. Denies any chest pain. Denies any shortness of breath. Once in a while she gets cough from her GERD. She has some episode of abdominal pain but that got resolved. Normal bladder movements. She seems to be incontinent of the urine as per the Epic notes and she was recently started on Myrbetriq. Currently afebrile, saturating okay. She finished her 2 doses of COVID vaccine. Because the patient is having significant headache and feeling somewhat restless with the pain and very difficult of hearing, I could not get any complete review of symptoms from the patient currently. ALLERGIES: IBUPROFEN, NICKEL, OXYCODONE, PENICILLIN, RANITIDINE, SULFA ANTIBIOTICS, CIPROFLOXACIN, AND MECLIZINE. PAST MEDICAL HISTORY: As mentioned above. PAST SURGICAL HISTORY: Colonoscopy, EGDs, right hand surgery, repair of nasal septum, total hysterectomy. MEDICATIONS: The patient is on Tylenol 500 mg p.o. q.6 p.r.n., anastrozole 1 mg p.o. a.m., vitamin C 500 mg p.o. a.m.,, calcium carbonate daily a.m., vitamin D 2000 units p.o. daily, clonidine 0.2 mg p.o. b.i.d., Flonase intranasal daily p.r.n., levothyroxine 112 mcg p.o. daily, losartan 50 mg p.o. daily, melatonin 10 mg p.o. at bedtime, sulindac 150 mg p.o. b.i.d., sumatriptan 150 mg p.o. q.2 hours p.r.n. FAMILY HISTORY: Significant for father had kidney cancer, mother had heart disorder. SOCIAL HISTORY: Currently living in an apartment. Smoked for 30 years, quit in 1993. No alcohol use, no drug use. REVIEW OF SYSTEMS: As per HPI, could not get complete review of systems. PHYSICAL EXAMINATION: GENERAL: The patient is alert and awake, could tell her name, knows that she is in the hospital. VITAL SIGNS: Temperature 36.8, pulse 82, respiratory rate 14, blood pressure 210/76, oxygen 95% on room air. HEENT: Pupils equal, round, and reactive to light. Oral mucosa moist. Tongue midline. No facial droop seen. NECK: No JVD or neck masses. CARDIOVASCULAR: S1, S2 heard, regular rate and rhythm, no murmur, no gallop. RESPIRATORY SYSTEM: Normal AP diameter. No accessory muscle use. No wheezing, no crackles. ABDOMEN: Soft, bowel sounds present, nontender. No distention. CENTRAL NERVOUS SYSTEM: Alert and oriented to name and place, thinks it is 2020. Answers questions appropriately and obeys simple commands. Strength 4/5 in all extremities. Sensation is intact. Coordination of movement normal. Able to lift her extremities and hold. No facial droop. Speech is currently clear, still somewhat difficulty finding words. EXTREMITIES: No edema, no erythema. LABORATORY DATA: WBC 5.7, hemoglobin 13.6, hematocrit 39.6, platelets 205. PT 10.5, INR 1, APTT 24.1. Sodium 142, potassium 3.8, chloride 111, bicarbonate 24, BUN 16, creatinine 0.5, serum glucose 135, calcium 10.7, magnesium 2, total bilirubin 0.6, AST 28, ALT 50, alkaline phosphatase 50. Troponin I of 0.3. SARS-CoV-2 pending. IMAGING: CT of the head, no acute findings. 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 This is likely developmental. Otherwise, no significant stenosis, occlusion, or aneurysm identified within the [place]. No significant stenosis, occlusion, or dissection identified within the carotid or vertebral arteries. EKG: Normal sinus rhythm, rate of 95, left axis deviation, nonspecific T-wave abnormality seen. QTc of 444. ASSESSMENT AND PLAN: This is a 80-year-old female who presents with stroke-like symptoms. 1. Stroke-like symptoms with expressive aphasia, initially with left-sided weakness and left-sided facial droop that is improving, speech is also improving, though she has some word finding difficulties. Exact time was not established, TPA was not given. Her symptoms were thought to be from hypertensive emergency or urgency, so she was given labetalol and started on a nicardipine drip. Rectal aspirin was given. Plan to monitor in the intensive care unit for blood pressure control, goal to keep the systolic blood pressure in the range of 165-185. The patient is currently n.p.o. until cleared by the speech. She was taking clonidine 0.2 b.i.d. and losartan at home, which are held. If cannot give her clonidine p.o., we may need to put a clonidine patch if her blood pressure is not controlled. Consult building dismantler . When able to take oral, we can give oral aspirin and oral statin.Full Stroke workup with MRI,Echo, Neuro consult, Speech evaluation. Pt/ot when stable. 2. Hypertensive urgency/emergency. Er started on nicardipine drip. At home on clonidine 0.2 b.i.d. and losartan 50 mg daily. Restart oral medications whenever able to take. Otherwise, we can place her on clonidine patch. Closely monitor in the intensive care unit. 3. History of diabetes, not on any medications. We will follow hemoglobin A1c levels. We will place her on insulin sliding scale. 4. History of hypothyroidism. Place her on IV Synthroid. 5. History of intraductal carcinoma in situ, right breast, status post radiation, on anastrozole, which is on hold currently. 6. Gastroesophageal reflux disease. We will place her on IV Protonix. 7. Headaches. Pain control. She also has a history of migraines and she is on Imitrex at home. 8. Deep venous thrombosis prophylaxis, sequential compression devices for now. 9. Disposition: Closely monitor in the intensive care unit. Level 1 full code. Physical therapy/occupational therapy prior to discharge. Social service to help with discharge planning. MTDD
--- NOTE | 2020-11-20 16:20 | Electrocardiogram Report ---
Test Reason : Blood Pressure : / mmHG Vent. Rate : 095 BPM Atrial Rate : 095 BPM P-R Int : 164 ms QRS Dur : 100 ms QT Int : 354 ms P-R-T Axes : 075 -39 057 degrees QTc Int : 444 ms Poor data quality, interpretation may be adversely affected Normal sinus rhythm Left axis deviation Anteroseptal infarct (cited on or before 29-APR-2002) Abnormal ECG When compared with ECG of 30-JAN-2019 07:09, Vent. rate has increased BY 38 BPM Nonspecific T wave abnormality now evident in Lateral leads Confirmed by Jos Porter ([id number] on 11/20/2020 4:20:08 PM Referred By: REFERRED SELF Confirmed By:Bartolo Porter
[2020-11-20] MEDS ORDERED: PHARMACIST DISCHARGE MED REC CONSULT PRN (17:04)
[2020-11-20] MEDS ORDERED: ICU PROTOCOL FOR HYPERGLYCEMIA PRN (17:04)
[2020-11-20] MEDS ORDERED: ACETAMINOPHEN 1000 MG/100 ML IV IV PRN (17:04)
[2020-11-20] MEDS: INSULIN ASPART 100 UNITS/ML 3 ML PEN SC SCH ×2 (17:40→22:04)
--- NOTE | 2020-11-20 17:40 | Critical Care Consultation ---
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 A stroke alert was called on her arrival, but tPA was not given due to uncertainty about last known normal. Neuro - [facility] ICU: NEGATIVE Sedation: None Analgesia: None Strokelike Symptoms * Last known normal- somewhere between 0600 and 0800 on 11/20 * Patient presented with L sided weakness, facial droop, and expressive aphasia * In setting of profound HTN on arrival (230/150), unclear whether this represented HTN emergency vs. ischemic CVA * s/p stroke alert in ED - tPA not given due to uncertainty about last known normal * Work-up as follows: - CT+CT-A Head, Neck without acute hemorrhage, stenosis, or acute processes hypoplastic distal L vertebral a. occluded before basilar artery, however this is thought to be developmental - ECG without dysrhythmia * F/U echocardiogram when available * Regular neurologic checks, NIHSS * BP goal <180/105 -- SBP preferred between 160-180 at this time with Nicardipine, Labetalol // control as below * Neurology already consulted / await recs * Await MRI * PT, OT * SPUN PASTE MACHINE OPERATOR evaluation requested by nursing -- passed swallow evaluation but prefer more thorough evaluation Expressive Aphasia * Noted -- strongly suspect sec to the processes described above * Not baseline for patient * Expressive aphasia still evident on exam Cardiac - Hypertensive Urgency vs. Emergency * Unclear at this point whether or not strokelike symptoms are 2/2 CVA vs. HTN emergency * Regardless, will proceed with careful BP lowering -- not to exceed 30% within first 12 hours (presenting BP 230/150) -- currently at goal * Renal function, CBC stable. Troponin 0.397. * Nicardipine for SBP>180, DBP>110 * Resume home medications once swallow study is complete -- clonidine, losartan; consider clonidine patch if unable to tolerate p.o. Elevated Troponin * No significant history of coronary disease * In setting of HTN emergency, suspect this is likely secondary to supply/demand mismatch with profound afterload elevation * ECG without acute conduction or repolarization abnormalities * BP control as above * Otherwise, continuous cardiac monitoring Respiratory - * No known respiratory disease or previous insults * Not requiring supplemental O2 * Pulse oximetry per floor protocol GI - * Passed swallow evaluation by nursing, however will proceed with more in-depth evaluation with SPUN PASTE MACHINE OPERATOR * OK for liquids, p.o. meds in the interim * GERD and ppx - continue IV PPI RENAL/LYTES - * Without significant history of renal disease - BUN/Cr on arrival 16/0.6 * No significant lyte abnormalities -- replete p.r.n. * Monitor BMP given profound HTN earlier today - * No concerns at present * Verican collection system in place ENDO - * IDCis of R Breast -- hold anastrazole for now * Hypothyroidism -- continue levothyroxine * Hyperglycemia protocol per ICU HEME - * Stable H&H -- will monitor * Did not receive tPA * Hold anticoagulation for now ID - * No concern for infection / infectious-related process at present INTEGUMENTARY - * No concerns. Will monitor. LINES/IV ACCESS - PIV x 2 in UEs. DVT PROPHYLAXIS - SCDs. Thank you for allowing us to be part of this patient's care. Please refer to Dr. Rao's documentation for any further recommendations. (2) Hypertensive emergency: (3) Hypertension: (4) Hypothyroidism: Supervising Physician Co-Signing Physician Notes Dr. Jones was the resident-physician during care of patient. I separately evaluated patient for hassan portions of the history and the exam. I was present during the critical portion of medical decision making, and I discussed the case with the resident. I generally agree with the findings and plan except for any additions/exceptions noted. Patient seen and examined at bedside. Patient was admitted because of expressive aphasia. CT head was negative. Possibility of stroke was there but given no known timeline TPA was not given Patient was also found to be in hypertensive emergency with blood pressure in high at 210. She was started on nicardipine drip and sent to the ICU for further management At the time of physical examination patient is bit restless. She was on nicardipine 10 Blood pressure was in the 170s. Denied any chest pain, she still has expressive aphasia. Was moving all the extremities appropriately. Strength 5 out of 5 all 4 extremities. Crackles appreciated bilaterally lower lobes, S1-S2 positive, accentuated P2 No lower extremity edema, +2 pulses bilaterally Goal is to decrease the MAP by no more than 25% in 24 hours. Would try to keep SBP between 160-180. Swallow eval, try to start p.o. medications for blood pressure management. Neuro checks. Neurology consultation has been made. I have personally spent 55 minutes of critical care time in the direct management of this patient. This is a life/limb threatening event. This includes time spent evaluating patient, direct bedside care, chart review, placing orders, interpretation of diagnostic studies, discussion with consultants, patient, and/or family members regarding treatment decisions, as well as other required patient management activities. This time is exclusive of all separately billable procedures, and teaching time and separate from and in addition to any other critical care service time. History of Present Illness Attending Physician: Dr. 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 Because of expressive aphasia, history is primarily obtained from anterior provider communication as well as notes. Patient lives in [facility] and at baseline has memory issues. Somewhere between 6 and 8 AM, patient was participating in her morning routine when she texted her granddaughter saying she thought she was having a stroke. Upon EMS arrival she was noted to have left facial droop and weakness, complaining of a headache, and was also noted to be hypertensive. In the ER, stroke alert was activated; initial CT of the head and neck were unremarkable. She is found to have left-sided facial droop, left- sided weakness, and expressive aphasia. tPA was not given due to uncertainty about being within the window and the patient was improving. She was started on labetalol and nicardipine drip to maintain goal blood pressures <180/105. Upon arrival to the ICU, blood pressures have ranged from 160/80 to 190/120. She is on nicardipine drip. She is unable to provide meaningful history due to her expressive aphasia. Questions are therefore asked in mostly yes/no fashion. Denies pain. No chest pain, palpitations, shortness of breath. No headache. No diplopia. No blurry vision. No dizziness. No sensation distortions. No focal weakness. Allergies Allergy/AdvReac Type Severity Reaction Status Date / Time ibuprofen Allergy Mild TACHYCARDIA Verified 11/20/20 11:48 nickel Allergy Mild RASH Verified 11/20/20 11:48 oxycodone Allergy Mild Nausea/Vomi Verified 11/20/20 11:48 ting Penicillins Allergy Mild Rash and Verified 11/20/20 11:48 throat tightness ranitidine Allergy Mild rash Verified 11/20/20 11:48 Sulfa (Sulfonamide Allergy Mild rash Verified 11/20/20 11:48 Antibiotics) ciprofloxacin AdvReac Mild GI SYMPTOMS Verified 11/20/20 11:48 meclizine AdvReac Mild GI SYMPTOMS Verified 11/20/20 11:48 Cipro AdvReac Unknown GI SYMPTOMS Verified 03/01/18 12:07 Home Medications Medication Instructions Recorded Confirmed Type anastrozole 1 mg tablet 1 mg PO QAM 04/10/19 11/20/20 History levothyroxine 112 mcg tablet 112 mcg PO QAM tab 04/10/19 11/20/20 History losartan 25 mg tablet 50 mg PO QAM #90 tab 04/10/19 11/20/20 History sulindac 150 mg tablet 150 mg PO BID tab 04/10/19 11/20/20 History sumatriptan succinate 50 mg tablet 50 mg PO Q2H PRN tab 04/10/19 11/20/20 History calcium carbonate 600 mg calcium 600 mg PO QAM 08/16/19 11/20/20 History (1,500 mg) tablet cholecalciferol (vitamin D3) 50 2,000 units PO QAM 08/16/19 11/20/20 History mcg (2,000 unit) tablet clonidine HCl 0.2 mg tablet 0.2 mg PO BID 08/16/19 11/20/20 History acetaminophen 500 mg tablet 500 mg PO Q6H PRN 08/18/20 11/20/20 History ascorbate calcium (vitamin C) 500 1 g PO QAM tab 08/18/20 11/20/20 History mg tablet melatonin 10 mg tablet 10 mg PO HS 08/18/20 11/20/20 History menthol 16 % topical spray 1 spray TOPICAL HS ml 08/18/20 11/20/20 History azelastine 137 mcg (0.1 %) nasal 2 spray INTRANASAL QAM #30 ml 10/27/20 11/20/20 Rx spray aerosol fluticasone propionate 50 2 spray INTRANASAL DAILY #15.8 g 10/27/20 11/20/20 Rx mcg/actuation nasal spray,suspension Patient History Medical History Afib episodic (2014), sinus rhythm per 01/2019 EKG Anxiety Arthritis Hearing deficit Hx of gastric ulcer HX: breast cancer 3 years ago Hypertension Hypothyroidism Insomnia Migraine Osteoarthritis Prediabetes Restless leg syndrome Stomach ulcer Urinary symptom or sign Surgical History History of cataract surgery BILAT History of colonoscopy History of endoscopic sinus surgery History of esophagogastroduodenoscopy (EGD) History of tooth extraction History of total abdominal hysterectomy and bilateral salpingo-oophorectomy Hx of lumpectomy LEFT BREAST (RADIATION) Nausea and vomiting after administration of anesthetic agent Trigger finger THUMB/LIGAMENT SURGERY> BILAT Family History Mother Hearing loss Hypertension Heart disease Father Hearing loss Hypertension Cancer Brother Stroke Other Cancer of kidney Social History Smoking Status: Former smoker Second Hand Exposure: No; Do You Dip or Chew Tobacco: No; Tobacco Cessation Education Requested by Patient: No Hx Alcohol Use: No Hx Substance Use: No Preferred Language: Greenlandic Communication Ability: Effective Composing Machine Operator Required: No Beliefs That Will Affect Care: None Current Living Situation: Alone Current Living Situation Comment: ASSISTED LIVING Other Information That Helps Us Care for You: No Feels Safe at Home: Yes Safety Concerns: Feels Safe At This Time Assistive Devices: Cane, Hearing Aid - Left and Hearing Aid - Right Review of Systems Review of Systems: as per HPI Physical Exam Physical Exam: General: Citlaly is a 80 who is alert, oriented, and appears in no acute distress. Body habitus: _. HEENT: NCAT. Eyes - Sclera are white, anicteric, and without injection. Neck - supple and without LAD. Thyroid - no appreciable goiter or nodules. Otherwise, please exam below Cardiac: Normal rate and regular rhythm; S1 and S2 present with no murmurs, rub s, or gallops. Pulmonary: Good respiratory effort with symmetric expansion of the chest. No use of accessory muscles. Lungs were clear to auscultation bilaterally with no crackles or wheezes. Abdominal: Abdomen was soft, nondistended, and non-tender to palpation. No hepatomegaly or splenomegaly. Extremities: Upper and lower extremities are warm and well perfused. Radial and dorsalis pedis pulses were 2+ b/l. Right hand is very mildly more hyperemic compared to the left -- not more swollen. No TTP. No increased firmness of antebrachium. Neuro: - Cranial Nerves: No facial droop on general impression. CN I, IX, and X - not assessed. II - PERRL. III/IV/ - EOMs WNL. No nystagmus. V - Facial sensation in tact in all three divisions; jaw opening WNL. VII - Patient is able to smile symmetrically and keep eyes close against resistance. VIII - Patient is able to hear finger snapping equally and appropriately. Patient is able to rotate head and shrug shoulders against resistance. XI - Soft palate raises equally and appropriately while saying "ah." XII - patient is able to stick out tongue and deviate from [id number] appropriately. Expressive aphasia is evident. - Motor: UE - Finger, wrist, elbow, and shoulder strength is 5/5 bilaterally. LE - initial assessment did reveal 4+/5 strength on the RLE when compared to the left. Unsure if this was due to positioning/fatigue vs. intrinsic, but is noted. - Sensation: UE and LE sensation to light touch is grossly intact bilaterally. - Reflexes - Biceps 2+ b/l; brachioradialis 2+ b/l; patellar 2+ b/l. No clonus. - [id number]: WNL b/l. No dysmetria. Psych: Well-developed, well-nourished, appropriately dressed for occasion. Behavior is cooperative and appropriate. Affect is WNL. Insight is appropriate. Results & Data Results & Data ([facility]) Vital Signs (Past 12 Hours) Vital Signs Temp Pulse Resp BP Pulse Ox 11/20/20 15:10 84 27 H 96 11/20/20 15:05 76 14 96 11/20/20 15:01 74 19 190/126 H 98 11/20/20 15:00 77 20 91 11/20/20 14:55 77 15 96 11/20/20 14:50 82 17 96 11/20/20 14:46 77 19 170/93 H 97 11/20/20 14:45 86 22 93 11/20/20 14:40 83 16 91 11/20/20 14:35 77 15 95 11/20/20 14:31 75 19 155/76 H 95 11/20/20 14:30 86 16 83 L 11/20/20 14:25 73 13 94 11/20/20 14:20 76 19 94 11/20/20 14:15 76 13 166/74 H 95 11/20/20 14:10 78 17 93 11/20/20 14:05 74 17 96 11/20/20 14:00 77 19 179/78 H 96 11/20/20 13:58 75 14 95 11/20/20 13:57 74 16 160/119 H 95 11/20/20 13:55 77 18 90 11/20/20 13:50 85 18 93 11/20/20 13:46 81 23 92 11/20/20 13:40 94 H 19 96 11/20/20 13:35 74 20 96 11/20/20 13:31 74 13 172/84 H 96 11/20/20 13:30 75 20 95 11/20/20 13:25 73 14 96 11/20/20 13:20 79 16 96 11/20/20 13:16 78 18 186/82 H 97 11/20/20 13:15 76 16 97 11/20/20 13:10 74 16 96 11/20/20 13:05 75 17 97 11/20/20 13:01 74 14 174/64 H 97 11/20/20 13:00 73 20 96 11/20/20 12:55 79 15 96 11/20/20 12:53 77 21 95 11/20/20 12:52 73 17 181/75 H 95 11/20/20 12:50 77 15 96 11/20/20 12:46 78 13 97 11/20/20 12:45 77 17 97 11/20/20 12:40 73 15 95 11/20/20 12:35 72 17 95 11/20/20 12:32 73 18 88 L 04/23/21 12:31 82 14 210/76 H 95 11/20/20 12:30 74 13 93 11/20/20 12:25 94 H 16 90 11/20/20 12:20 84 21 92 11/20/20 12:16 74 18 193/140 H 95 11/20/20 12:15 36.8 C 75 23 93 11/20/20 12:10 75 17 93 11/20/20 12:05 75 17 93 11/20/20 12:04 75 15 182/92 H 93 11/20/20 12:00 84 23 93 11/20/20 11:55 85 18 91 11/20/20 11:50 80 22 92 11/20/20 11:46 81 22 192/88 H 93 11/20/20 11:45 76 25 H 92 11/20/20 11:40 76 18 94 11/20/20 11:35 80 18 92 11/20/20 11:31 75 21 171/61 H 94 11/20/20 11:30 75 20 94 11/20/20 11:25 74 19 93 11/20/20 11:23 80 23 96 11/20/20 11:22 79 17 96 11/20/20 11:21 89 20 93 11/20/20 11:20 87 24 91 11/20/20 11:19 90 22 93 11/20/20 11:18 85 21 93 11/20/20 11:17 77 20 92 11/20/20 11:16 76 19 207/99 H 93 11/20/20 11:15 75 23 94 11/20/20 11:14 76 20 94 11/20/20 11:13 83 19 94 11/20/20 11:12 83 15 94 11/20/20 11:11 76 17 94 11/20/20 11:10 75 22 94 11/20/20 11:09 85 24 92 11/20/20 11:08 86 24 93 11/20/20 11:07 73 22 91 11/20/20 11:06 77 18 93 11/20/20 11:05 86 27 H 92 11/20/20 11:04 76 22 91 11/20/20 11:03 85 26 H 92 11/20/20 11:01 74 16 203/115 H 94 11/20/20 11:00 94 H 22 92 11/20/20 10:59 74 23 93 11/20/20 10:58 73 16 93 11/20/20 10:57 74 20 92 11/20/20 10:56 75 18 92 11/20/20 10:55 80 21 92 11/20/20 10:54 75 18 91 11/20/20 10:52 72 20 184/109 H 92 11/20/20 10:51 77 23 91 11/20/20 10:50 75 20 92 11/20/20 10:49 75 18 93 11/20/20 10:47 76 21 205/77 H 90 11/20/20 10:46 85 17 91 11/20/20 10:45 72 22 92 11/20/20 10:44 73 23 92 11/20/20 10:43 73 19 92 11/20/20 10:42 73 22 93 11/20/20 10:40 74 24 170/83 H 92 11/20/20 10:39 78 21 93 11/20/20 10:38 78 22 92 11/20/20 10:37 83 19 92 11/20/20 10:36 75 19 90 11/20/20 10:35 77 22 92 11/20/20 10:34 77 24 91 11/20/20 10:33 83 21 93 11/20/20 10:32 73 25 H 94 11/20/20 10:31 82 28 H 159/94 H 93 11/20/20 10:30 76 21 92 11/20/20 10:29 81 19 92 11/20/20 10:28 74 21 95 11/20/20 10:27 75 26 H 92 11/20/20 10:26 76 19 179/137 H 91 11/20/20 10:25 86 30 H 91 11/20/20 10:23 78 21 192/122 H 92 11/20/20 10:22 71 22 92 11/20/20 10:20 80 22 191/89 H 90 11/20/20 10:14 72 30 H 189/122 H 93 11/20/20 10:11 72 20 191/114 H 93 11/20/20 10:10 79 18 90 11/20/20 10:00 76 27 H 93 11/20/20 09:50 75 22 94 11/20/20 09:40 78 18 92 11/20/20 09:37 36.8 C 77 19 229/149 H 94 11/20/20 09:33 88 22 229/149 H 94 11/20/20 09:31 91 H 23 94 11/20/20 09:30 91 H 20 93 Resident Activity Tracking Resident Involvement: Resident Care Provided Care Provided: Adult Hospital Medicine
[2020-11-20] MEDS: SODIUM CHLORIDE 0.9% 1000ML 1,000 ML IV SCH (17:43)
--- NOTE | 2020-11-20 19:16 | Billing Data ---
Date of Service November 20, 2020 Coding Level of Care Code Critical Care 1st 30-74 mins Time Spent (min) 55
[2020-11-20] MEDS ORDERED: LORazepam 0.5 MG/1 ML VIAL IV STA (20:06)
--- NOTE | 2020-11-20 20:45 | Magnetic Resonance Report ---
MRI OF THE BRAIN WITHOUT CONTRAST CLINICAL HISTORY: Cerebrovascular accident. COMPARISON STUDY: MRI the brain July 04, 2019. Head CT and CTA of the head performed earlier today . TECHNIQUE: Utilizing a 1.5 Nu magnet and dedicated coil, multiplanar, multiecho imaging of the bra in was performed without IV contrast. FINDINGS: This exam is compromised by motion artifact. The entire exam could not be completed. Howeve r, there are no foci of restricted diffusion to suggest acute infarct. No acute intracranial hemorrha ge, midline shift or mass effect is present. Ventricular system is unremarkable. Basilar cisterns are patent. There are no extra axial collections. White matter T2 hyperintense foci are similar to MRI o f July 04, 2019. No intracranial masses identified on this unenhanced examination. The appearance of the brain is similar to previous MRI. IMPRESSION: 1. No acute intracranial findings. 2. Mildly compromised, incomplete exam but no significant change since MRI of July 04, 2019. ACT 112: Negative or not required by law. Electronically signed by: Dom Ambrosio M.D. 11/20/2020 8:44 PM
[2020-11-20] MEDS ORDERED: METOPROLOL TARTRATE 25 MG TAB PO SCH (21:00)
[2020-11-20] MEDS: LOSARTAN POTASSIUM 25 MG TAB PO SCH (21:27)
--- NOTE | 2020-11-20 23:04 | Hospitalist Progress Note ---
Date of Service November 20, 2020 Assessment & Plan Admission and Anticipated Discharge Date Admission Date: November 20, 2020 Subjective Mild elevation of troponin. Mostly demand ischemia. She also has chronic elevation. Will follow serial enzymes and echo. Asymptomatic Results & Data Results & Data ([facility]) Vital Signs (Past 12 Hours) Vital Signs Temp Pulse Pulse Resp BP BP Pulse Ox 11/20/20 22:30 88 24 167/100 H 92 11/20/20 22:00 86 20 118/83 93 11/20/20 21:30 81 20 92 11/20/20 21:00 36.8 C 99 H 23 162/51 H 91 11/20/20 19:51 82 20 122/76 96 11/20/20 18:22 80 22 145/64 H 95 11/20/20 18:20 84 20 95 11/20/20 18:18 85 19 137/99 95 11/20/20 18:15 81 24 95 11/20/20 18:10 85 22 96 11/20/20 18:05 83 20 97 11/20/20 18:02 90 21 164/71 H 96 11/20/20 18:00 86 18 95 11/20/20 17:55 77 18 94 11/20/20 17:50 77 17 95 11/20/20 17:48 80 20 174/76 H 96 11/20/20 17:45 78 20 93 11/20/20 17:40 78 23 95 11/20/20 17:35 78 18 93 11/20/20 17:32 80 16 167/60 H 93 11/20/20 17:30 81 20 95 11/20/20 17:25 83 17 95 11/20/20 17:20 78 17 96 11/20/20 17:17 80 20 166/71 H 96 11/20/20 17:15 81 20 97 11/20/20 17:10 78 16 92 11/20/20 17:05 80 15 95 11/20/20 17:04 18 95 11/20/20 17:02 80 28 H 164/78 H 96 11/20/20 17:00 79 19 93 11/20/20 16:55 83 20 95 11/20/20 16:52 84 16 168/90 H 96 11/20/20 16:50 87 21 93 11/20/20 16:47 79 19 179/79 H 96 11/20/20 16:45 80 15 96 11/20/20 16:40 79 18 96 11/20/20 16:35 80 20 94 11/20/20 16:32 81 21 177/84 H 95 11/20/20 16:30 78 15 94 11/20/20 16:25 81 23 87 L 11/20/20 16:22 91 H 27 H 160/124 H 91 11/20/20 16:20 84 17 171/116 H 92 11/20/20 16:18 91 H 19 173/146 H 92 11/20/20 16:15 76 14 92 11/20/20 16:10 81 21 92 11/20/20 16:05 89 16 92 11/20/20 16:03 94 H 24 195/96 H 93 11/20/20 16:00 80 16 91 11/20/20 15:58 79 20 191/91 H 92 11/20/20 15:55 78 16 92 11/20/20 15:50 89 19 89 L 11/20/20 15:46 82 22 183/98 H 92 11/20/20 15:10 84 27 H 96 11/20/20 15:05 76 14 96 11/20/20 15:01 74 19 190/126 H 98 11/20/20 15:00 77 20 91 11/20/20 14:55 77 15 96 11/20/20 14:50 82 17 96 11/20/20 14:46 77 19 170/93 H 97 11/20/20 14:45 86 22 93 11/20/20 14:40 83 16 91 11/20/20 14:35 77 15 95 11/20/20 14:31 75 19 155/76 H 95 11/20/20 14:30 86 16 83 L 11/20/20 14:25 73 13 94 11/20/20 14:20 76 19 94 11/20/20 14:15 76 13 166/74 H 95 11/20/20 14:10 78 17 93 11/20/20 14:05 74 17 96 11/20/20 14:00 77 19 179/78 H 96 11/20/20 13:58 75 14 95 11/20/20 13:57 74 16 160/119 H 95 11/20/20 13:55 77 18 90 11/20/20 13:50 85 18 93 11/20/20 13:46 81 23 92 11/20/20 13:40 94 H 19 96 11/20/20 13:35 74 20 96 11/20/20 13:31 74 13 172/84 H 96 11/20/20 13:30 75 20 95 11/20/20 13:25 73 14 96 11/20/20 13:20 79 16 96 11/20/20 13:16 78 18 186/82 H 97 11/20/20 13:15 76 16 97 11/20/20 13:10 74 16 96 11/20/20 13:05 75 17 97 11/20/20 13:01 74 14 174/64 H 97 11/20/20 13:00 73 20 96 11/20/20 12:55 79 15 96 11/20/20 12:53 77 21 95 11/20/20 12:52 73 17 181/75 H 95 11/20/20 12:50 77 15 96 11/20/20 12:46 78 13 97 11/20/20 12:45 77 17 97 11/20/20 12:40 73 15 95 11/20/20 12:35 72 17 95 11/20/20 12:32 73 18 88 L 11/20/20 12:31 82 14 210/76 H 95 11/20/20 12:30 74 13 93 11/20/20 12:25 94 H 16 90 11/20/20 12:20 84 21 92 11/20/20 12:16 74 18 193/140 H 95 11/20/20 12:15 36.8 C 75 23 93 11/20/20 12:10 75 17 93 11/20/20 12:05 75 17 93 11/20/20 12:04 75 15 182/92 H 93 11/20/20 12:00 84 23 93 11/20/20 11:55 85 18 91 11/20/20 11:50 80 22 92 11/20/20 11:46 81 22 192/88 H 93 11/20/20 11:45 76 25 H 92 11/20/20 11:40 76 18 94 11/20/20 11:35 80 18 92 11/20/20 11:31 75 21 171/61 H 94 11/20/20 11:30 75 20 94 11/20/20 11:25 74 19 93 11/20/20 11:23 80 23 96 11/20/20 11:22 79 17 96 11/20/20 11:21 89 20 93 11/20/20 11:20 87 24 91 11/20/20 11:19 90 22 93 11/20/20 11:18 85 21 93 11/20/20 11:17 77 20 92 11/20/20 11:16 76 19 207/99 H 93 11/20/20 11:15 75 23 94 11/20/20 11:14 76 20 94 11/20/20 11:13 83 19 94 11/20/20 11:12 83 15 94 11/20/20 11:11 76 17 94 11/20/20 11:10 75 22 94 11/20/20 11:09 85 24 92 11/20/20 11:08 86 24 93 11/20/20 11:07 73 22 91 11/20/20 11:06 77 18 93 11/20/20 11:05 86 27 H 92 11/20/20 11:04 76 22 91
[2020-11-21 05:20] LABS: Basophils # (auto) 0.02 K/uL (0-0.2); Basophils % (auto) 0.3 %; Eosinophils # (auto) 0.15 K/uL (0-0.5); Hematocrit (blood only) 41.8 % (37-47); Hemoglobin 13.9 g/dL (12.0-16.0); Immature Granulocytes # (auto) 0.02 K/uL (0.00-0.02); Immature Granulocytes % (auto) 0.3 %; Lymphocytes # (auto) 1.54 K/uL (1.2-3.4); Lymphocytes % (auto) 20.1 %; Mean Corpuscular Hemoglobin 27.3 pg (25-34); Mean Corpuscular Hgb Conc 33.3 g/dL (32-36); Mean Platelet Volume 9.2 fL (7.4-10.4); Monocytes % (auto) 7.8 %; Neutrophils # (auto) 5.32 K/uL (1.4-6.5); Neutrophils % (auto) 69.5 %; Platelet Count 189 K/uL (130-400); RDW Coefficient of Variation 15.1 % (11.5-14.5); RDW Standard Deviation 45.2 fL (36.4-46.3); White Blood Count 7.65 K/uL (4.8-10.8)
[2020-11-21] MEDS: SODIUM CHLORIDE 0.9% 1000ML 1,000 ML IV SCH (05:32)
[2020-11-21] MEDS: niCARdipine 25 MG in SODIUM CHLORIDE 0.9% 240 ML IV PRN (05:32)
[2020-11-21 05:54] LABS: BUN Creatinine Ratio 22.3 (10-20); Est GFR (African American) 110.5; Est GFR (Non-African American) 95.3; Magnesium 1.8 mg/dl (1.8-2.4); Phosphorus 2.4 mg/dl (2.5-4.9); Potassium 3.2 mmol/L (3.5-5.1)
[2020-11-21] MEDS ORDERED: POTASSIUM CHLORIDE CRTAB 20 MEQ TABCR PO STA (05:56)
[2020-11-21] MEDS ORDERED: POTASSIUM PHOS 3 MMOL/1 ML INFUSION IV STA (05:56)
[2020-11-21] MEDS: MAGNESIUM SULFATE / D5W 1 GM/100 ML BAG IV SCH ×2 (06:19→08:28)
[2020-11-21 06:21] LABS: Estimated Average Glucose 154 mg/dl
[2020-11-21] MEDS: INSULIN ASPART 100 UNITS/ML 3 ML PEN SC SCH ×4 (07:29→22:48)
[2020-11-21] MEDS ORDERED: POTASSIUM PHOSPHATE 15 MMOL in SODIUM CHLORIDE 0.9% 250 ML IV ONE (08:00)
[2020-11-21] MEDS: ASPIRIN 81 MG ECTAB PO SCH (08:27)
[2020-11-21] MEDS: cloNIDine HCL 0.1 MG TAB PO SCH ×2 (08:27→22:37)
[2020-11-21] MEDS: FLUTICASONE PROPIONATE NA SPR 16 GM BTL SCH (08:28)
[2020-11-21] MEDS: LOSARTAN POTASSIUM 25 MG TAB PO SCH (08:28)
[2020-11-21] MEDS ORDERED: LEVOTHYROXINE SODIUM IV SCH (09:00)
[2020-11-21] MEDS ORDERED: PANTOprazole 40 MG in SYRINGE 0 ML IV SCH (11:00)
--- NOTE | 2020-11-21 11:27 | Communication Note ---
Date of Service: November 21, 2020 I have been asked to evaluate Citlaly Mata 80-year-old white right-handed woman for a possible TIA/CVA manifested by the onset yesterday morning about 2 hours after eating breakfast and characterized apparently by some word finding deficits in the left facial weakness without any other manifestations Unfortunately the patient today is not desirous of being evaluated wants to watch television, is very hearing impaired, and would not cooperate with my attempts to examine her or to obtain a history so most of what I am able to do is review the chart and other recorded notes. She did requested I leave her alone to watch her television show All this occurs in the setting of history of migraine headaches still treated with triptans but apparently relatively low frequency of flares. During my brief interaction with her she denied having seen any physicians for this and was little evasive about who was writing the medications. She also is known to be hypertensive have osteoporosis have restless leg syndrome, hypothyroidism is esophageal dysphagia chronic nonallergic rhinitis has had a hysterectomy, carpal tunnel surgery, nasal septoplasty colonoscopies and EGDs and has a history of gastric ulcer acute bronchitis all outlined on the chart he also has a history of intraductal cancer of the right breast is followed by oncology Home medications include acetaminophen and anastrozole vitamin C azelastine nasal spray Calcium carbonate, vitamin D3, clonidine, fluticasone levothyroxine, losartan, melatonin menthol sulindac and sumatriptan she is not apparently taking aspirin or Plavix Yesterday she apparently texted a granddaughter who came to visit her found her to be confused with what sounds like an aphasia brought her to the hospital where she was found to have a blood pressure 230/140 and was complaining bitterly about a headache and had nausea and vomiting Because of the imprecise onset of her symptomatology the stroke neurology team from [place] elected not to offer her TPA and she was improving at the time and apparently has gotten back to baseline although that is very difficult for me to establish without obtaining a history and allowing me to examine her 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 which has nothing to do with the current symptoms and otherwise pretty unremarkable CTA of the head and neck, CT of the head showing some age-appropriate changes and and a motion degraded MRI of the brain that shows nothing new on diffusion imaging in the brainstem or in the right hemisphere but does show some chronic low-grade white matter changes EKG shows sinus rhythm and old septal MD stable I believe since 2001 Echocardiography has not been performed Her blood pressure has been treated vigorously she has been placed on aspirin and at the present time theoretically is back to baseline state. There is some mention about cognitive impairment in the admission history and physical but I do not know the duration of this or how significant it might be As noted above I was unable to perform any kind of examination today due to the fact that she preferred to watch television and requested that I not interrupt her program. On a superficial evaluation she may have had a slight left facial asymmetry but her speech was fairly clear and she was of course very hearing impaired and had no obvious hemiparesis on either side or loss of facility any of her repetitive movements but again she would not cooperate at all her standard neurologic testing At this point with negative studies in a patient who presented with headache extreme hypertension and slowly resolving neurologic deficits one would have to be concerned about a hypertensive urgency mediated vasospastic affair. It is possible this was a migraine but the degree of hypertension is impressive and she still has moderate hypertension by latest vital signs so I believe we have to consider this a transient ischemic attack simply based on her age vascular risk factors etc. My suggestion would be to check an echocardiogram to be sure there is no cardiogenic source of embolization and to continue on her on low-dose aspirin 81 mg I will try to reevaluate her in the morning at a time perhaps when I will not interrupt her television program Cisco Rubi MD
--- NOTE | 2020-11-21 11:44 | Critical Care Progress Note ---
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 A stroke alert was called on her arrival, but tPA was not given due to uncertainty about last known normal. --Hypertensive emergency Initial systolic blood pressure was 230/150 Would be contributory Patient is able to swallow, home medications have been restarted Goal systolic blood pressure in the next 24 hours will be around 140 --Expressive aphasia Etiology is expected most likely from TIA versus hypertensive emergency s/p stroke alert in ED - tPA not given due to uncertainty about last known normal CT head and MRI were negative for stroke Neurology is following Follow recommendations --Elevated troponin Likely type II AL EKG did not show any ST-T wave changes --Hypothyroidism Continue with levothyroxine --Hypokalemia, hypophosphatemia Being replaced --COPD We will start the patient on Incruse --Prophylaxis VTE: IPC's GI: Protonix Lines: Peripheral Diet: Cardiac Plan: In/out +[id number], urine output 725 DC IV fluids Patient's home dose of clonidine has been restarted, patient states that she was compliant with her blood pressure medications. Continue with home losartan as well. Titrate off nicardipine drip. Goal systolic blood pressure in the next 24 hours around 140 I have personally spent 33 minutes of critical care time in the direct management of this patient. This is a life/limb threatening event. This includes time spent evaluating patient, direct bedside care, chart review, placing orders, interpretation of diagnostic studies, discussion with consultants, patient, and family members, as well as other required patient management activities. This time is exclusive of all separately billable procedures, and teaching time and separate from and in addition to any other critical care service time. Please note the above document was generated using voice recognition software. It may contain grammatical, syntax or spelling errors. (3) Hypertension: (4) Hypothyroidism: Admission and Anticipated Discharge Date Admission Date: November 20, 2020 Subjective Patient seen and examined at bedside. No acute distress, no adverse events over night. Patient was on nicardipine drip 2.5 at the time of examination Her systolic blood pressure was 176. Patient is feeling much better compared to before. Her aphasia has almost resolved. She denies any headache, no nausea or vomiting. She had her breakfast. No abdominal pain, no shortness of breath, no chest pain. Review of Systems Review of Systems: All systems reviewed & are unremarkable except as noted in Subjective Physical Exam Physical Exam: Constitutional: No acute distress HEENT: EOMI, PERRLA, hard of hearing Respiratory system: Decreased air entry bilaterally, no wheeze, no cough, positive crackles bilateral lower lobes CVS: S1-S2 positive, no murmurs or gallops Abdomen: Soft, nontender, nondistended, positive bowel sounds x4 Extremities: +2 pulses bilaterally radialis/ dorsalis pedis, no cyanosis, no edema, Neuro: Awake alert oriented x3, cranial nerves II to XII grossly intactbilateral upper and lower extremities strength 5/5 Psych: Normal mood and affect G/U: No Cope Skin: no rashes, warm and dry Lymphatic: no cervical or axillary lymphadenopathy Results & Data Results & Data ([facility]) Vital Signs (Past 12 Hours) Vital Signs Temp Pulse Resp BP Pulse Ox 11/21/20 11:18 62 15 117/55 L 90 11/21/20 10:30 73 17 172/84 H 11/21/20 09:19 79 20 185/63 H 11/21/20 08:36 74 16 170/77 H 96 11/21/20 08:19 74 23 170/77 H 94 11/21/20 08:00 36.9 C 11/21/20 07:57 82 19 175/83 H 92 11/21/20 07:18 79 22 156/92 H 92 11/21/20 06:00 74 20 152/92 H 92 11/21/20 05:30 75 18 11/21/20 05:00 75 17 185/77 H 11/21/20 04:30 75 18 11/21/20 04:00 36.7 C 79 16 167/62 H 91 11/21/20 03:30 78 16 11/21/20 03:00 80 18 180/66 H 11/21/20 02:30 76 18 11/21/20 02:00 78 17 153/84 H 91 11/21/20 01:30 79 16 11/21/20 01:00 76 23 142/72 H 11/21/20 00:30 86 18 11/21/20 00:00 36.7 C 95 H 20 170/71 H 90 11/21/20 04:53 11/21/20 04:53 Coding Level of Care Code Critical Care 1st 30-74 mins Diagnoses Acute CVA (cerebrovascular accident) I63.9 Hypertensive emergency I16.1 Hypertension I10 Hypothyroidism E03.9 Time Spent (min) 33
--- NOTE | 2020-11-21 17:38 | Hospitalist Progress Note ---
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 no significant stenosis, occlusion, or aneurysm. MRI brain showed no acute intracranial findings. Echo showed normal LV chamber size and wall thickness. Normal LV systolic function with ejection fraction 60 to 65%. No segmental left ventricular wall motion abnormality. The interatrial septum is intact with no evidence for atrial septal defect. Neuro on board recommended to continue aspirin 81mg PT/OT/Speech on board Clinically improves Hypertensive emergency BP on admission showed BP 230/150 Pt was started on nicardipine drip BP improved and nicardipine drip was discontinued Continue 0.2 b.i.d. and losartan 50 mg daily. Continue monitor BP Hypothyroidism IV Levothyroxine was transition to PO Diabetes type 2 Hba1c 7 on 11/21/20 Not on any diabetes meds Pt was advised to follow a low carb diet and limited concentrated sweet intake Will defer to PCP to start on PO diabetes med History of intraductal carcinoma in situ, right breast status post radiation, on anastrozole Gastroesophageal reflux disease. Continue PPI Headaches. Stable Deep venous thrombosis prophylaxis On SCD, will add lovenox subq Disposition Transfer out of the ICU Admission and Anticipated Discharge Date Admission Date: November 20, 2020 Subjective Pt was seen and examined for stroke like symptoms Lying in bed with no distress watching TV Pt said that she feels fine She said that she is back to her baseline Denies any chest pain, palpitation, dizziness and SOB Review of Systems Review of Systems: All systems reviewed & are unremarkable except as noted in Subjective Physical Exam Physical Exam: General- No acute distress Head- atraumatic Eyes- PERRL, EOMI, ENT- oropharynx clear Neck- supple, no JVD Lungs- clear to auscultation Heart- regular rhythm; no murmur Abdomen- normal bowel sounds, soft, nontender Extremities- no calf tenderness Neuro- alert, oriented x 3; PERRL, EOMI; no facial palsy; no dysarthria Skin- warm & dry Results & Data Results & Data ([facility]) Vital Signs (Past 12 Hours) Vital Signs Temp Pulse Resp BP Pulse Ox 11/21/20 15:18 66 19 157/84 H 93 11/21/20 14:18 60 17 142/71 H 93 11/21/20 13:43 68 13 135/76 93 11/21/20 12:18 64 16 138/64 90 11/21/20 11:25 36.9 C 11/21/20 11:18 62 15 117/55 L 90 11/21/20 10:30 73 17 172/84 H 92 11/21/20 09:19 79 20 185/63 H 92 11/21/20 08:36 74 16 170/77 H 96 11/21/20 08:19 74 23 170/77 H 94 11/21/20 08:00 36.9 C 11/21/20 07:57 82 19 175/83 H 92 11/21/20 07:18 79 22 156/92 H 92 11/21/20 06:00 74 20 152/92 H 92 11/21/20 05:30 75 18
[2020-11-21] MEDS ORDERED: ENOXAPARIN INJ 40 MG/0.4 ML SYR SQ SCH (21:00)
[2020-11-22] MEDS ORDERED: LEVOTHYROXINE SODIUM 112 MCG TABLET PO SCH (06:30)
--- NOTE | 2020-11-22 06:49 | Electrocardiogram Report ---
Test Reason : Blood Pressure : / mmHG Vent. Rate : 077 BPM Atrial Rate : 077 BPM P-R Int : 138 ms QRS Dur : 096 ms QT Int : 370 ms P-R-T Axes : 068 -28 -33 degrees QTc Int : 418 ms Sinus rhythm with Premature atrial complexes Septal infarct (cited on or before 29-APR-2002) Nonspecific T wave abnormality Abnormal ECG When compared with ECG of 20-NOV-2020 09:31, Premature atrial complexes are now Present Questionable change in initial forces of Anterior leads T wave inversion now evident in Inferior leads Confirmed by Hebert Jade ([id number]) on 11/22/2020 6:48:53 AM Referred By: REFERRED SELF Confirmed By:Hebert Jade
[2020-11-22] MEDS: INSULIN ASPART 100 UNITS/ML 3 ML PEN SC SCH ×2 (07:48→12:02)
[2020-11-22 08:21] LABS: Basophils # (auto) 0.02 K/uL (0-0.2); Basophils % (auto) 0.4 %; Eosinophils # (auto) 0.27 K/uL (0-0.5); Eosinophils % (auto) 5.6 %; Hematocrit (blood only) 39.8 % (37-47); Hemoglobin 13.2 g/dL (12.0-16.0); Immature Granulocytes # (auto) 0.01 K/uL (0.00-0.02); Immature Granulocytes % (auto) 0.2 %; Lymphocytes # (auto) 1.48 K/uL (1.2-3.4); Lymphocytes % (auto) 30.8 %; Mean Corpuscular Hemoglobin 27.4 pg (25-34); Mean Corpuscular Hgb Conc 33.2 g/dL (32-36); Mean Corpuscular Volume 82.6 fL (80-100); Mean Platelet Volume 9.3 fL (7.4-10.4); Monocytes # (auto) 0.48 K/uL (0.11-0.59); Neutrophils # (auto) 2.54 K/uL (1.4-6.5); Platelet Count 174 K/uL (130-400); RDW Coefficient of Variation 15.5 % (11.5-14.5); RDW Standard Deviation 46.9 fL (36.4-46.3); Red Blood Count 4.82 M/uL (4.2-5.4)
[2020-11-22] MEDS: ASPIRIN 81 MG ECTAB PO SCH (08:30)
[2020-11-22] MEDS: cloNIDine HCL 0.1 MG TAB PO SCH (08:30)
[2020-11-22] MEDS: LOSARTAN POTASSIUM 25 MG TAB PO SCH (08:30)
[2020-11-22] MEDS: FLUTICASONE PROPIONATE NA SPR 16 GM BTL SCH (08:30)
[2020-11-22 08:53] LABS: Calcium 9.7 mg/dl (8.5-10.1); Creatinine Clr Calc Pharmacy 68.9 ml/min; Est GFR (African American) 96.9; Est GFR (Non-African American) 83.6; Magnesium 2.1 mg/dl (1.8-2.4); Potassium 3.8 mmol/L (3.5-5.1)
[2020-11-22] MEDS ORDERED: PANTOprazole 40 MG TAB PO SCH (09:00)
[2020-11-22] MEDS ORDERED: hydrALAZINE HCL 20 MG/ML VIAL IV PRN (09:36)
[2020-11-22] MEDS ORDERED: LOSARTAN POTASSIUM 25 MG TAB PO ONE (09:45)
--- NOTE | 2020-11-22 12:12 | Communication Note ---
Date of Service: November 22, 2020 Citlaly is much more receptive today to provider interaction and is awake alert oriented in 3 spheres much less irritable and has really nothing significant on physical examination other than perhaps a subtle left upper motor neuron facial paresis which I think is probably chronic and upon review of her MRI scans now in on her [facility] record it is clear she has a significant degree of cerebral atrophy and fairly extensive white matter changes consistent with small vessel disease I am not sure what happened but she claims that the symptoms now are reminiscent of her migraines in the sense that her headaches were bifrontal and admits that the migraines have been very few in number and had onset later than age 51 but have not been associated with any other issues and she almost is never taken the Imitrex 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 and she is never seen a neurologist Thus far the echocardiogram is normal the CT angiographic studies show only a left vertebral occlusion which is not going to have caused this issue, the MRI shows no acute new imaging abnormalities on diffusion suggestive of an absence of an acute event, clinically she is better, her blood pressure is now down to 140/79 and her exam shows nothing of significance and mentally she is bright alert cooperative oriented in 3 spheres no any outpatient concerns about memory are not borne out by how she is doing in the hospital She claims she has been taking her aspirin religiously so at this point I think we are forced to call this a TIA and add Plavix 75 mg daily to the aspirin for a period of 21 days. She can be seen in neurologic follow-up. Frankly this could be a telephonic visit just to check in on her symptoms and to recommend discontinuing the Plavix at the 21-day interval of time Follow-up will be arranged through our office I believe she can be discharged home on Plavix and aspirin for 21 days and then revert to pure Plavix at that point We will be signing off the case Cisco Rubi MD
[2020-11-22] MEDS ORDERED: CLOPIDOGREL BISULFATE 75 MG TAB PO SCH (13:00)
--- NOTE | 2020-11-22 13:56 | Hospitalist Progress Note ---
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 no significant stenosis, occlusion, or aneurysm. MRI brain showed no acute intracranial findings. Echo showed normal LV chamber size and wall thickness. Normal LV systolic function with ejection fraction 60 to 65%. No segmental left ventricular wall motion abnormality. The interatrial septum is intact with no evidence for atrial septal defect. Neuro on board recommended to continue aspirin 81mg and Plavix 75mg for 21 days, then discontinue aspirin and continue plavix only PT/OT/Speech on board Follow up with neurology in in 3-4 weeks Ok from neurology standpoint to discharge home Hypertensive emergency BP on admission showed BP 230/150 Pt was started on nicardipine drip BP improved and nicardipine drip was discontinued Continue 0.2 b.i.d. and losartan 50 mg daily. BP improves Continue monitor BP Hypophosphatemia Phosphate 2 today Phos replaced Will continue phosphate supplement on discharge Check phosphate level in 1 week Hypothyroidism IV Levothyroxine was transition to PO Continue PO Levothyroxine Diabetes type 2 Hba1c 7 on 11/21/20 Not on any diabetes meds Pt was advised to follow a low carb diet and limited concentrated sweet intake Will defer to PCP to start on PO diabetes med History of intraductal carcinoma in situ, right breast status post radiation, on anastrozole Gastroesophageal reflux disease. Continue PPI Headaches. Stable Deep venous thrombosis prophylaxis On SCD, will add lovenox subq Disposition discharge home today Pt already has follow up with PCP tomorrow Admission and Anticipated Discharge Date Admission Date: November 20, 2020 Subjective Pt was seen and examined for stroke like symptoms Sitting in chair with no distress eating her lunch Pt said that she feels fine She said that she is back to her baseline She is very anxious to go home today Denies any chest pain, palpitation, dizziness and SOB Review of Systems Review of Systems: All systems reviewed & are unremarkable except as noted in Subjective Physical Exam Physical Exam: General- No acute distress Head- atraumatic Eyes- PERRL, EOMI, ENT- oropharynx clear Neck- supple, no JVD Lungs- clear to auscultation Heart- regular rhythm; no murmur Abdomen- normal bowel sounds, soft, nontender Extremities- no calf tenderness Neuro- alert, oriented x 3; PERRL, EOMI; no facial palsy; no dysarthria Skin- warm & dry Results & Data Results & Data ([facility]) Vital Signs (Past 12 Hours) Vital Signs Temp Pulse Pulse Resp BP Pulse Ox 11/22/20 11:13 36.7 C 58 L 18 140/79 95 11/22/20 10:31 56 L 128/79 11/22/20 07:29 200/72 H 11/22/20 07:27 59 L 11/22/20 07:10 36.4 C L 74 18 94 11/22/20 04:00 36.6 C 63 18 173/71 H 94
[2020-11-22] MEDS ORDERED: POT PHOSPHATE MONOBASIC W/ SOD TAB PO ONE (14:21)
[2020-11-22 14:23] VITALS: PULSE 59; TEMP 97.7; O2SAT 98
[2020-11-22] MEDS ORDERED: STROKE PATIENT DISCHARGE STA (14:45)
[2020-11-22 14:53] VITALS: BP 199/85
--- NOTE | 2020-11-22 15:21 | Pharmacy Report ---
Pharmacist Stroke Counseling - Date of Service November 22, 2020 - Scope: Pharmacy has been consulted to provide medication discharge counseling for this patient admitted with transient ischemic attack as per the Pharmacist Discharge Counseling for Stroke Patients Protocol. - Medications on Discharge: Home Medications Medication Instructions Recorded Confirmed anastrozole 1 mg tablet 1 mg PO QAM 04/10/19 11/20/20 levothyroxine 112 mcg tablet 112 mcg PO QAM tab 04/10/19 11/20/20 losartan 25 mg tablet 50 mg PO QAM #90 tab 04/10/19 11/20/20 sulindac 150 mg tablet 150 mg PO BID tab 04/10/19 11/20/20 sumatriptan succinate 50 mg tablet 50 mg PO Q2H PRN tab 04/10/19 11/20/20 calcium carbonate 600 mg calcium 600 mg PO QAM 08/16/19 11/20/20 (1,500 mg) tablet cholecalciferol (vitamin D3) 50 2,000 units PO QAM 08/16/19 11/20/20 mcg (2,000 unit) tablet clonidine HCl 0.2 mg tablet 0.2 mg PO BID 08/16/19 11/20/20 acetaminophen 500 mg tablet 500 mg PO Q6H PRN 08/18/20 11/20/20 ascorbate calcium (vitamin C) 500 1 g PO QAM tab 08/18/20 11/20/20 mg tablet melatonin 10 mg tablet 10 mg PO HS 08/18/20 11/20/20 menthol 16 % topical spray 1 spray TOPICAL HS ml 08/18/20 11/20/20 New Rx's Medication Instructions Recorded azelastine 137 mcg (0.1 %) nasal 2 spray INTRANASAL QAM #30 ml 10/27/20 spray aerosol fluticasone propionate 50 2 spray INTRANASAL DAILY #15.8 g 10/27/20 mcg/actuation nasal spray,suspension aspirin 81 mg PO QAM 30 Days #30 tab 11/22/20 clopidogrel 75 mg PO QAM 30 Days #30 tab 11/22/20 sod phos di, mono-K phos mono 1 tab PO BID #10 tab 11/22/20 [Phospha 250 Neutral] - Action: The above medications, specifically ones for stroke treatment/prophylaxis, have been reviewed in detail with the patient and/or patient patient access representative(s) prior to discharge. This includes indication, common adverse reactions, drug interactions, and medication administration. Medication counseling has been employed using the teach-back method to ensure understanding. - Outcome: The patient and/or patient patient access representative(s) have demonstrated understanding of the medications. Additional comments: I spoke with Mrs. Mata about her new medications and how to take them, also any problems to watch for. I asked if she would be able to get to the pharmacy to tack picker her new medications and she said yes. She did not have any further questions. I did read the neurology note regarding Mrs. Mata. He said to discharge patient on ASA and Plavix. He did not have a statin noted. Thank you for allowing pharmacy to be involved in the care of this patient. Please call [phone] with any additional questions
--- NOTE | 2020-11-23 08:30 | Discharge Summary ---
Date of Service November 22, 2020 Admission HPI Per Admitting Provider CHIEF COMPLAINT: Expressive aphasia. HISTORY OF PRESENT ILLNESS: A 80-year-old female with past medical history significant for hypothyroidism, diabetes, hypertension, gastritis, history of intraductal carcinoma in situ of right breast, anxiety. The patient lives in [facility] drives locally and she recently as per PCP and as per epic notes has some memory issues. Today, the patient says she got up around 6:00 a.m. and she brushed her teeth and she made her own breakfast, but at around 8:07 a.m., she texted her granddaughter that she is having stroke and EMS was called. Question of that she woke up and ate breakfast at 6:00 a.m. and she has had some left-sided facial droop and some left-sided weakness and was hypertensive and she was complaining of frontal headache and she was brought here by EMS. Exact time was difficult to establish as per the ER because she did not eat breakfast with other people in the apartment, so even if it is at 6:00 a.m., she was out of the window about 4-1/2 hours. Initial CAT scan and CTA of the head and neck were unremarkable. Initially, the plan was to give TPA, but the TPA was canceled because not well known time and the patient seems to be improving. Thought her symptoms could be fro hypertensive emergency. She still complains of headache. Her blood pressure was high and she was given labetalol and started on nicardipine drip. Granddaughter in the room helping with history. The patient is very hard of hearing, complains of severe headache and nausea. Denies any chest pain. Denies any shortness of breath. Once in a while she gets cough from her GERD. She has some episode of abdominal pain but that got resolved. Normal bladder movements. She seems to be incontinent of the urine as per the Epic notes and she was recently started on Myrbetriq. Currently afebrile, saturating okay. She finished her 2 doses of COVID vaccine. Because the patient is having significant headache and feeling somewhat restless with the pain and very difficult of hearing, I could not get any complete review of symptoms from the patient currently. Admission Exam Per Admitting Provider GENERAL: The patient is alert and awake, could tell her name, knows that she is in the hospital. VITAL SIGNS: Temperature 36.8, pulse 82, respiratory rate 14, blood pressure 210/76, oxygen 95% on room air. HEENT: Pupils equal, round, and reactive to light. Oral mucosa moist. Tongue midline. No facial droop seen. NECK: No JVD or neck masses. CARDIOVASCULAR: S1, S2 heard, regular rate and rhythm, no murmur, no gallop. RESPIRATORY SYSTEM: Normal AP diameter. No accessory muscle use. No wheezing, no crackles. ABDOMEN: Soft, bowel sounds present, nontender. No distention. CENTRAL NERVOUS SYSTEM: Alert and oriented to name and place, thinks it is 2020. Answers questions appropriately and obeys simple commands. Strength 4/5 in all extremities. Sensation is intact. Coordination of movement normal. Able to lift her extremities and hold. No facial droop. Speech is currently clear, still somewhat difficulty finding words. EXTREMITIES: No edema, no erythema. Principal Diagnosis Stroke-like symptom: Hypertensive emergency Hypophosphatemia Hypothyroidism Diabetes type 2 History of intraductal carcinoma in situ Gastroesophageal reflux disease. Headaches. Discharge Exam General- No acute distress Head- atraumatic Eyes- PERRL, EOMI, ENT- oropharynx clear Neck- supple, no JVD Lungs- clear to auscultation Heart- regular rhythm; no murmur Abdomen- normal bowel sounds, soft, nontender Extremities- no calf tenderness Neuro- alert, oriented x 3; PERRL, EOMI; no facial palsy; no dysarthria Skin- warm & dry Discharge Data Allergies Allergy/AdvReac Type Severity Reaction Status Date / Time ibuprofen Allergy Mild TACHYCARDIA Verified 11/20/20 11:48 nickel Allergy Mild RASH Verified 11/20/20 11:48 oxycodone Allergy Mild Nausea/Vomi Verified 11/20/20 11:48 ting Penicillins Allergy Mild Rash and Verified 11/20/20 11:48 throat tightness ranitidine Allergy Mild rash Verified 11/20/20 11:48 Sulfa (Sulfonamide Allergy Mild rash Verified 11/20/20 11:48 Antibiotics) ciprofloxacin AdvReac Mild GI SYMPTOMS Verified 11/20/20 11:48 meclizine AdvReac Mild GI SYMPTOMS Verified 11/20/20 11:48 Cipro AdvReac Unknown GI SYMPTOMS Verified 03/01/18 12:07 Consultations 11/20/20 11:36 ED Decision to Admit Stat 11/20/20 17:04 Consult Grain Drier Operator Routine Consult Neurology Routine Ordered Studies 11/20/20 09:14 CT angio head w con Stat CT angio neck with con Stat CT head/brain wo con Stat 11/20/20 17:04 MR brain wo con Routine MRI OF THE BRAIN WITHOUT CONTRAST CLINICAL HISTORY: Cerebrovascular accident. COMPARISON STUDY: MRI the brain July 04, 2019. Head CT and CTA of the head performed earlier today. TECHNIQUE: Utilizing a 1.5 Nu magnet and dedicated coil, multiplanar, multiecho imaging of the brain was performed without IV contrast. FINDINGS: This exam is compromised by motion artifact. The entire exam could not be completed. However, there are no foci of restricted diffusion to suggest acute infarct. No acute intracranial hemorrhage, midline shift or mass effect is present. Ventricular system is unremarkable. Basilar cisterns are patent. There are no extra axial collections. White matter T2 hyperintense foci are similar to MRI of July 04, 2019. No intracranial masses identified on this unenhanced examination. The appearance of the brain is similar to previous MRI. IMPRESSION: 1. No acute intracranial findings. 2. Mildly compromised, incomplete exam but no significant change since MRI of July 04, 2019. ACT 112: Negative or not required by law. Electronically signed by: Dom Ambrosio M.D. 11/20/2020 8:44 PM Dictated: 11/20/202039Transcribed: 11/20/202039 HEAD & NECK CTA HISTORY: Stroke Like Symptoms TECHNIQUE: Multiaxial CT images of the head were performed following the intravenous administration of contrast to evaluate the major cerebral vessels. Multiaxial CT images of the neck were also performed following the intravenous administration of contrast to evaluate the major cervical vessels. Maximum intensity projection images were also obtained. A dose lowering technique was utilized adhering to the principles of ALARA. COMPARISON: None. FINDINGS: The superior sagittal sinus at the high convexity is not opacified. However, there is no evidence for dural venous sinus thrombosis. 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 Remaining dural venous sinuses appear patent. 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 This may be developmental. The dominant right vertebral artery and basilar artery are patent. Severely hypoplastic right P1 segment which is developmental. Otherwise, the bilateral creative services manager are widely patent. Moderate calcified plaque within the proximal left carotid siphon. No significant stenosis within the intracranial internal carotid arteries. The bilateral ACAs and MCAs show no significant stenosis, occlusion, or aneurysm. The aortic arch and proximal great vessels are widely patent. Mild focal narrowing within the mid left vertebral artery on image 166 due to the mass effect from the adjacent osteophytes. Otherwise, the bilateral vertebral arteries are widely patent. Minimal calcified plaque within the bilateral carotid bulbs. No significant stenosis, occlusion, or dissection within the bilateral common or internal carotid arteries. There is mild calcified plaque within the normal caliber aortic arch. The proximal great vessels are widely patent. There is a single mildly enlarged left sternoclavicular lymph node on image 90 measuring 14 x 10 mm. No pneumothorax. IMPRESSION: 1. 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 2. Otherwise, no significant stenosis, occlusion, or aneurysm identified within the [place]. 3. No significant stenosis, occlusion, or dissection identified within the carotid or vertebral arteries. ACT 112: Negative or not required by law. Electronically signed by: Waqar Peterson M.D. 11/20/2020 9:41 AM Dictated: 11/20/20928Transcribed: 11/20/20928 HEAD & NECK CTA HISTORY: Stroke Like Symptoms TECHNIQUE: Multiaxial CT images of the head were performed following the intravenous administration of contrast to evaluate the major cerebral vessels. Multiaxial CT images of the neck were also performed following the intravenous administration of contrast to evaluate the major cervical vessels. Maximum intensity projection images were also obtained. A dose lowering technique was utilized adhering to the principles of ALARA. COMPARISON: None. FINDINGS: The superior sagittal sinus at the high convexity is not opacified. However, there is no evidence for dural venous sinus thrombosis. 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 Remaining dural venous sinuses appear patent. 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 This may be developmental. The dominant right vertebral artery and basilar artery are patent. Severely hypoplastic right P1 segment which is developmental. Otherwise, the bilateral creative services manager are widely patent. Moderate calcified plaque within the proximal left carotid siphon. No significant stenosis within the intracranial internal carotid arteries. The bilateral ACAs and MCAs show no significant stenosis, occlusion, or aneurysm. The aortic arch and proximal great vessels are widely patent. Mild focal narrowing within the mid left vertebral artery on image 166 due to the mass effect from the adjacent osteophytes. Otherwise, the bilateral vertebral arteries are widely patent. Minimal calcified plaque within the bilateral carotid bulbs. No significant stenosis, occlusion, or dissection within the bilateral common or internal carotid arteries. There is mild calcified plaque within the normal caliber aortic arch. The proximal great vessels are widely patent. There is a single mildly enlarged left sternoclavicular lymph node on image 90 measuring 14 x 10 mm. No pneumothorax. IMPRESSION: 1. 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 2. Otherwise, no significant stenosis, occlusion, or aneurysm identified within the [place]. 3. No significant stenosis, occlusion, or dissection identified within the carotid or vertebral arteries. ACT 112: Negative or not required by law. Electronically signed by: Waqar Peterson M.D. 11/20/2020 9:41 AM Dictated: 11/20/20928Transcribed: 11/20/20928 CT SCAN OF THE BRAIN WITHOUT IV CONTRAST CLINICAL HISTORY: Strokelike symptoms. COMPARISON STUDY: CT of the brain dated 01/17/2019. TECHNIQUE: Unenhanced axial CT scan of the brain is performed from the vertex to the skull base. A dose lowering technique was utilized adhering to the principles of ALARA. FINDINGS: Brain parenchyma: There are age-related involutional changes noting moderate to advanced subcortical and periventricular microangiopathic change. There is no hemorrhage, mass effect, or evidence of acute territorial ischemia by CT criteria. [place]-white matter differentiation is preserved. No extra-axial fluid collection is seen. Calcification above the right mastoids along the tentorium is unchanged. Ventricles, sulci, cisterns: Prominent secondary to involutional change. Intracranial vasculature: There is atherosclerotic calcification of the cavernous carotid and vertebral arteries. Calvarium: Unremarkable. Sinuses and mastoids: The visualized paranasal sinuses are clear. The mastoid ai r cells are well pneumatized. Orbits: The bony orbits are grossly intact. There are bilateral ocular lens implants. IMPRESSION: There is no hemorrhage, mass effect, or evidence of acute territorial ischemia by CT criteria. ACT 112: Negative or not required by law. Electronically signed by: Caleb Lemus M.D. 11/20/2020 9:26 AM Dictated: 11/20/20922Transcribed: 11/20/20922 Hospital Course (1) Stroke-like symptom: She was brought to the ED for expressive aphasia associated with left sided weakness and left facial droop initially with left-sided Possible related to TIA Stroke alert was called, but TPA was not given due to unknown onset time and symptoms improved CT head showed no acute intracranial abnormality CTA head/neck severely hypoplastic distal left intracranial vertebral artery which is occluded just before the basilar artery. no significant stenosis, occlusion, or aneurysm. MRI brain showed no acute intracranial findings. Echo showed normal LV chamber size and wall thickness. Normal LV systolic function with ejection fraction 60 to 65%. No segmental left ventricular wall motion abnormality. The interatrial septum is intact with no evidence for atrial septal defect. Neuro on board recommended to continue aspirin 81mg and Plavix 75mg for 21 days, then discontinue aspirin and continue plavix only PT/OT/Speech on board Follow up with neurology in in 3-4 weeks Ok from neurology standpoint to discharge home Hypertensive emergency BP on admission showed BP 230/150 Pt was started on nicardipine drip BP improved and nicardipine drip was discontinued Continue 0.2 b.i.d. and losartan 50 mg daily. BP improves Continue monitor BP Hypophosphatemia Phosphate 2 today Phos replaced Will continue phosphate supplement on discharge Check phosphate level in 1 week Hypothyroidism IV Levothyroxine was transition to PO Continue PO Levothyroxine Diabetes type 2 Hba1c 7 on 11/21/20 Not on any diabetes meds Pt was advised to follow a low carb diet and limited concentrated sweet intake Will defer to PCP to start on PO diabetes med History of intraductal carcinoma in situ, right breast status post radiation, on anastrozole Gastroesophageal reflux disease. Continue PPI Headaches. Stable Deep venous thrombosis prophylaxis On SCD, will add lovenox subq Disposition discharge home today Pt already has follow up with PCP tomorrow Total Time Total Time Spent Total Time Spent (In Minutes): 35 minutes Total Time Includes: Examination of the Patient, Discharge Planning, Medication Reconciliation, Communication With Other Providers and Other Discharge Plan Discharge Items Patient Disposition: Home - Self-Care Reason For Visit: STROKE ALERT Discharge Diagnosis: Stroke-like symptom: Hypertensive emergency Hypophosphatemia Hypothyroidism Diabetes type 2 History of intraductal carcinoma in situ Gastroesophageal reflux disease. Headaches. Activity: Resume your previous activity Non-emergency contact: Primary Care Provider and Neurologist Call non-emergency contact if: you have any medication questions and your symptoms worsen Follow-up/Referrals: Navya Prescott DO [Primary Care Provider] - Diet: Carb Consistent or DM2 Addtl Attending Provider Instructions: Follow up with your primary care provider Dr. Prescott tomorrow (Already scheduled for tomorrow ) Follow with neurology Dr. Rubi or his colleagues in 3-4 weeks You were admitted in the hospital for TIA (transient ischemic attack) Continue plavix and aspirin for 21 days, then after 21 days discontinue the aspirin and continue the Plavix Continue phosphate supplement for a week Check phosphorus level in 1 week (Your physician will order it) Please avoid any additional NSAID while taking Plavix such as (Motrin, Aleve, Naproxen, Ibuprofen, Advil, ....) to decrease the risk ofbleeding Monitor for any abnormal bleeding while on Plavix and aspirin Continue monitor your blood pressure and bring your blood pressure log at your next appointment with your provider Check Hba1c in 3 -4 months to monitor your diabetes Follow a healthy diabetes diet and limited concentrated sweet intake Pending Studies at Discharge: No Stand-Alone Forms: Medications to Prevent Stroke, My [facility] [place], Smoking Cessation Medications and DC Order Prescriptions: New clopidogrel 75 mg Tablet 75 mg PO QAM 30 Days Qty: 30 RF: 0 aspirin 81 mg Tablet,Delayed Release (Dr/Ec) 81 mg PO QAM 30 Days Qty: 30 RF: 0 Phospha 250 Neutral 250 mg tablet 1 tab PO BID Qty: 10 RF: 0 Continued acetaminophen [Tylenol Extra Strength] 500 mg tablet 500 mg PO Q6H PRN (Reason: Pain) RF: 0 Icy Hot (menthol) 16 % aerosol,spray 1 spray topical HS RF: 0 calcium carbonate [Calcium 600] 600 mg calcium (1,500 mg) tablet 600 mg PO QAM RF: 0 cholecalciferol (vitamin D3) 2,000 unit tablet 2,000 units PO QAM RF: 0 clonidine HCl 0.2 mg tablet 0.2 mg PO BID RF: 0 ascorbate calcium (vitamin C) 500 mg tablet 1 g PO QAM RF: 0 melatonin 10 mg tablet 10 mg PO HS RF: 0 azelastine 137 mcg (0.1 %) aerosol,spray 2 spray intranasal QAM Qty: 30 RF: 5 fluticasone propionate 50 mcg/actuation spray,suspension 2 spray intranasal DAILY Qty: 15.8 RF: 5 losartan 25 mg tablet 50 mg PO QAM Qty: 90 RF: 0 levothyroxine 112 mcg tablet 112 mcg PO QAM RF: 0 anastrozole 1 mg tablet 1 mg PO QAM RF: 0 sumatriptan succinate 50 mg tablet 50 mg PO Q2H PRN (Reason: migraine headache) RF: 0 Discontinued sulindac 150 mg tablet 150 mg PO BID RF: 0 Discharge Orders: Discharge Order (Routine); Ordered 11/22/20 Ordered By: Raf Hill/Other Patient Handouts: High Blood Sugar (Hyperglycemia), Hypoglycemia (Low Blood Sugar), Managing Type 2 Diabetes, 5 Steps for Eating Healthier, Managing Diabetes: The A1C Test Admission Data Admit Date/Time: 11/20/20 12:22 Attending Provider: Raf Hobson Admit Provider: Wilberto Bhatia Primary Care Provider: Navya Prescott Other Providers: Wilberto Bhatia ; Harshad Rao ; Abigail Salter ; Cisco Rubi ; Abigail Esteban ; Pravin Meng Other Interventions: Discharge Summary Assessment (RN) Last Done: 11/22/20 14:50
[2020-11-23] MEDS ORDERED: LOSARTAN POTASSIUM 50 MG TAB PO SCH (09:00)
== END 2020-11-22 16:25 | disposition home or self-care (01) | DRG 69 ==
LOC: ED 09:09 → 1E 12:22 → SUATTDRO 12:22 → 1E 14:51 → 2W 11-21 17:17

== ENCOUNTER 2024-06-07 09:25 | Inpatient (IN) ==
--- NOTE | 2024-06-07 09:55 | Emergency Department Note ---
Impression & Plan Weakness, Elevated troponin, Fall, Acute dehydration, Acute hyperglycemia, Acute hyperkalemia ED Provider Note NAME: BELKYS GREEN AGE: 83 SEX: F : 1940 ARRIVES VIA: Ambulance INFORMANT: [Patient][EMS] ED PROVIDER(S): [Caleb Schmitt MD] CHIEF COMPLAINT: Trauma HISTORY OF PRESENT ILLNESS: The patient is an 83-year-old female who in the last 24 hours has fallen 3 times. The patient states that her left leg just seems to give out. She has had issues with her left leg for years but lately, she has noticed that the leg is giving out more. The patient does not really have any pain from her falls. She denies hitting her head or any loss of consciousness. She has no neck pain, chest pain or abdominal pain. No back pain or shortness of breath. She states that she does not have pain in the left hip per se, just weakness when she tries to ambulate. Of note, the patient was made a trauma alert by the nursing staff as she does take Plavix. PMHx/PSHx/Social Hx: See Below PHYSICAL EXAM: GENERAL: Patient is in no acute distress. HEENT: No acute trauma, normocephalic atraumatic, mucous membranes dry, no nasal congestion. NECK: No stridor, no adenopathy, mildly diffusely tender posterior C-spine without step-off, trachea is midline. LUNGS: Clear to auscultation bilaterally, no wheeze, no rhonchi, breath sounds equal. HEART: Without murmurs gallops or rubs, regular rate and rhythm. ABDOMEN: Soft, nontender, no peritonitis. EXTREMITIES: No cyanosis, full range of motion of all the joints without pain or difficulty. No lower extremity gross deformities. No real pain with movement of the left hip joint. NEUROLOGIC: Oriented x 3, no acute motor or sensory deficits, no focal weakness. No facial droop. SKIN: No jaundice, no diaphoresis. Back: Nontender thoracic or lumbar spine. DIFFERENTIAL DIAGNOSIS: Intracranial bleeding, C-spine injury, extremity injury, dehydration, electrolyte imbalance, UTI, anemia, dysrhythmia, among others. EMERGENCY DEPARTMENT PROCEDURES: MEDICAL DECISION MAKING: There is a mild leukocytosis, this could be consistent with infection or just the stress of her presentation. There was a normal hemoglobin and platelet count. No coagulopathy. VBG showed a very subtle acidosis but no significant CO2 retention. Renal panel testing showed a lower sodium and somewhat higher potassium. There was an anion gap of 18. Glucose was quite high at over 400. Hemoglobin A1c was quite high at 14. No concerning liver enzyme elevation. The patient appeared to be in a euthyroid state. ECG showed a normal sinus rhythm, there was no obvious ST elevation. Cardiac enzyme testing x 1 was somewhat elevated. This troponin elevation could be secondary to cardiac injury or just mismatch. Looking back at previous testing, she does have a history of a mild troponin elevation at baseline. Urinalysis showed glucose and ketones, no obvious infection. Chest film did not show pneumonia or rib fracture. Left hip and pelvis films did not show hip fracture or pelvic fracture. Brain CT showed no acute bleed or mass effect. C- spine CT showed no acute fracture. Patient did appear quite dehydrated clinically. I suspect her dehydration and DKA has led to weakness, this weakness has then led to her falling. The patient received IV saline, 1 L. She received IV insulin, 10 units. She did not require anything for pain. I spoke to the patient about her findings, luckily, she has not suffered any significant injury from her falls. The patient is in need of a hospital stay. She requires hydration, electrolyte replacement, glucose control. She may require rehab depending on how she does during this hospital stay. I spoke with case management, the on-call hospitalist was consulted. Prior/Outside records/notes reviewed: Today's EMS notes describing her presentation and transport to this hospital. ECG per my interpretation: Indication was weakness. The ECG shows a normal sinus rhythm with a rate of 77. There was a left bundle branch block. No acute ST elevation, no PVCs. The QTc was 445. Continuous Cardiac Monitoring per my interpretation: An order was placed for continuous cardiac monitoring. The monitor shows a rate of 85 with normal sinus rhythm. Imaging/x-ray results per my interpretation: Chest x-ray does not show mediastinal widening, pneumonia or pneumothorax. Left hip and pelvis film does not show fracture or bony dislocation. Chronic Medical/Social conditions affecting care: Advanced age. Care/Management discussed with: Case management, the on-call hospitalist. Level of care consideration(s): After review of the information above and other included data: --I believe the patient requires escalation of care to admission Critical Care Note: I have personally spent 49 minutes of critical care time in the direct management of this patient. This includes bedside care, interpretation of diagnostic studies, and testing, discussion with consultants, patient, and family members, and other required patient management activities. This 49 minutes is in excess of all separately billable procedures. DISPOSITION: Admission Past Med/Surg History Problem List (Updated 06/07/24 @ 16:52 by Caleb Schmitt MD) Acute hyperkalemia (Acute) Acute hyperglycemia (Acute) Acute dehydration (Acute) Fall (Acute) Elevated troponin (Acute) Weakness (Acute) Dehydration Leukocytosis Diabetes mellitus, type 2 NIDDM Hypercalcemia Hyperkalemia Elevated troponin Hyperglycemia Recurrent falls Dysphagia LBBB (left bundle branch block) NSTEMI (non-ST elevated myocardial infarction) Elevated troponin I level (Acute) Abnormal EKG (Acute) Hypertriglyceridemia Dyslipidemia Nephrotic range proteinuria Hyperparathyroidism 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 The elevated troponin remained flat and mild after being trended. Echocardiogram showed no wall motion abnormalities. Cardiology was consulted and did not feel as though her chest pain was cardiac in nature and did not recommend a stress test either. Cause of pain thought to be esophageal disease.">brought to [place] ER for CP and evaluated, hospitalized for 3 days Esophageal reflux Diverticulosis of colon hx Dysphagia LPRD (laryngopharyngeal reflux disease) Mixed stress and urge incontinence Osteoporosis Osteoarthritis Hypertension Hypothyroidism Afib episodic (2014), sinus rhythm per 01/2019 EKG; used to f/u wa cardio, "no longer needs to see" HX: breast cancer dx 2017, sx and 1 week of xrt Arthritis History of gastric ulcer Hearing deficit Stomach ulcer ~2018, resolved, no current issues Insomnia Anxiety Restless leg syndrome Migraine Surgical History History of esophagogastroduodenoscopy (EGD) Nausea and vomiting after administration of anesthetic agent History of endoscopic sinus surgery History of colonoscopy Hx of lumpectomy History of total abdominal hysterectomy and bilateral salpingo-oophorectomy Trigger finger History of tooth extraction History of cataract surgery H/O nasal septoplasty H/O hand surgery Family History Mother Hearing loss Hypertension Heart disease Father Hearing loss Hypertension Cancer Brother Stroke Other Cancer of kidney Denies family history of Breast cancer Social History Smoking Status: Former smoker Tobacco Type: Cigarettes Age Started Using Tobacco: 17; Age Quit Using Tobacco: 30; packs per day: 1; Second Hand Exposure: Yes (hx ex smoked); Do You Dip or Chew Tobacco: No; Hx Alcohol Use: No Hx Substance Use: No Preferred Language: American Communication Ability: Effective Hearing Ability: Use of Hearing Aid Gas Pit Worker Required: No Beliefs That Will Affect Care: None marital status: Single Current Living Situation: Alone current occupational status: retired Feels Safe at Home: Yes Safety Concerns: Feels Safe At This Time Childhood Exposure to Second-Hand Smoke: No Diet: diabetic caffeine: No Dental Care, Regularly: No Physical Activity Frequency: Daily Seatbelt Use: always Sunscreen Use: No Assistive Devices: Denture - Upper, Denture - Lower and Hearing Aid - Bilateral Allergies Allergies Allergy/AdvReac Type Severity Reaction Status Date / Time nickel Allergy Mild RASH Verified 05/13/24 09:31 Penicillins Allergy Mild Rash and Verified 05/13/24 09:31 throat tightness ranitidine Allergy Mild rash Verified 05/13/24 09:31 Sulfa (Sulfonamide Allergy Mild rash Verified 05/13/24 09:31 Antibiotics) ciprofloxacin AdvReac Mild GI SYMPTOMS Verified 05/13/24 09:31 ibuprofen AdvReac Mild TACHYCARDIA Verified 05/13/24 09:31 meclizine AdvReac Mild GI SYMPTOMS Verified 05/13/24 09:31 oxycodone AdvReac Mild Nausea/Vomi Verified 05/13/24 09:31 ting Home Meds Home Medications Medication Instructions Recorded Confirmed cholecalciferol (vitamin D3) 50 2,000 units PO QAM 08/16/19 06/07/24 mcg (2,000 unit) tablet ascorbate calcium (vitamin C) 500 1 g PO QAM 08/18/20 06/07/24 mg tablet menthol 16 % topical spray (Icy 1 spray topical HS 08/18/20 06/07/24 Hot (menthol)) melatonin 10 mg tablet 10 mg PO HS PRN Sleep 06/02/21 06/07/24 biotin 10,000 mcg chewable tablet 10,000 mcg PO QAM 04/03/24 06/07/24 (Hair, Skin and Nails (biotin)) clopidogrel 75 mg tablet (Plavix) 75 mg PO QAM 04/03/24 06/07/24 losartan 100 mg tablet 100 mg PO QAM 04/03/24 06/07/24 solifenacin 10 mg tablet (Vesicare) 10 mg PO QAM 04/03/24 06/07/24 Previous Rx's Medication Instructions Recorded acetaminophen 500 mg tablet 1,000 mg (2 x 500 mg) PO Q8H PRN 04/11/22 (Tylenol Extra Strength) Pain #180 tabs levothyroxine 112 mcg tablet 112 mcg PO QAM #90 tabs 04/04/24 amlodipine 5 mg tablet (Norvasc) 10 mg (2 x 5 mg) PO QAM #90 tabs 04/15/24 pantoprazole 40 mg tablet,delayed 40 mg PO BID 1 month #180 tabs 04/15/24 release triamterene 37.5 1 tab PO DAILY #90 tabs 04/28/24 mg-hydrochlorothiazide 25 mg tablet empagliflozin 25 mg tablet 25 mg PO DAILY #90 tabs 05/13/24 (Jardiance) Results & Data (ED) Vital Signs Vital Signs - 24 hr 06/07/24 09:30 06/07/24 09:30 06/07/24 09:43 Temperature 36.7 C Temperature Source Oral Pulse Rate 90 Pulse Rate [Left Finger] Pulse Strength [Bilateral Femoral] Strong Respiratory Rate 22 Respiratory Effort / Characteristics Non-Labored Respiratory Depth Normal Respiratory Pattern Blood Pressure 150/75 H Blood Pressure [Left Arm] Blood Pressure Mean 100 Blood Pressure Mean [Left Arm] Pulse Oximetry 98 99 Oxygen Delivery Method Room Air Room Air Room Air Sepsis Recent Fever Within 48 Hours No Sepsis New/Unexplained Change in Mental Status No Sepsis Action Taken by Nursing No Action Required 06/07/24 09:47 06/07/24 09:56 06/07/24 10:31 Temperature 36.7 C Temperature Source Pulse Rate 85 77 Pulse Rate [Left Finger] 83 Pulse Strength [Bilateral Femoral] Respiratory Rate 18 16 Respiratory Effort / Characteristics Respiratory Depth Respiratory Pattern Blood Pressure 150/75 H Blood Pressure [Left Arm] 161/92 H Blood Pressure Mean Blood Pressure Mean [Left Arm] 115 Pulse Oximetry 98 98 Oxygen Delivery Method Room Air Room Air Sepsis Recent Fever Within 48 Hours Sepsis New/Unexplained Change in Mental Status Sepsis Action Taken by Nursing 06/07/24 11:16 Temperature Temperature Source Pulse Rate Pulse Rate [Left Finger] 86 Pulse Strength [Bilateral Femoral] Respiratory Rate 20 Respiratory Effort / Characteristics Non-Labored Spontaneous Respiratory Depth Normal Respiratory Pattern Regular Blood Pressure Blood Pressure [Left Arm] 125/77 Blood Pressure Mean Blood Pressure Mean [Left Arm] 93 Pulse Oximetry 98 Oxygen Delivery Method Room Air Sepsis Recent Fever Within 48 Hours Sepsis New/Unexplained Change in Mental Status Sepsis Action Taken by Detention Medications Current Medication List: was personally reviewed by me Laboratory Data Attestation: I reviewed the patient's lab results. 06/07/24 09:37 06/07/24 09:37 Lab Results 06/07/24 06/07/24 06/07/24 Range/Units 09:37 09:39 09:46 WBC 11.76 H (4.8-10.8) K/ul RBC 4.79 (4.20-5.40) M/uL Hgb 14.7 (12.0-16.0) g/dl POC Hgb 15.0 (12.0-16.0) g/dl Hct 41.8 (37.0-47.0) % POC Hct 44 (37-47) % MCV 87.3 (80.0-100.0) fL MCH 30.7 (25.0-34.0) pg MCHC 35.2 (32.0-36.0) g/dL RDW Std Deviation 42.0 (36.4-46.3) fL RDW Coeff of Landry 13.1 (11.5-14.5) % Plt Count 187 (130-400) K/uL MPV 10.4 (9.4-12.4) fL Immature Gran % (Auto) 0.4 % Neut % (Auto) 82.1 % Lymph % (Auto) 8.9 % [place] % (Auto) 7.9 % Eos % (Auto) 0.3 % Baso % (Auto) 0.4 % Neut # (Auto) 9.64 H (1.40-6.50) K/uL Lymph # (Auto) 1.05 L (1.20-3.40) K/uL [place] # (Auto) 0.93 H (0.11-0.59) K/uL Eos # (Auto) 0.04 (0.00-0.50) K/uL Baso # (Auto) 0.05 (0.00-0.20) K/uL Immature Gran # (Auto) 0.05 (0.01-0.20) K/uL PT 10.6 (9.0-12.0) Seconds INR 1.0 (0.9-1.1) APTT 25 (21-31) Seconds PTT Ratio 0.9 VBG pH (7.36-7.41) VBG pCO2 (38-50) mmHg VBG pO2 mmHg VBG HCO3 mmol/L VBG O2 Saturation % VBG Base Excess mEq/L POC Sodium 131 L (135-144) mmol/L Sodium 132 L (136-145) mmol/L POC Potassium 5.1 H (3.3-5.0) mmol/L Potassium 5.5 H (3.5-5.1) mmol/L POC Chloride 97 L (101-112) mmol/L Chloride 93 L (98-107) mmol/L Carbon Dioxide 21 (21-32) mmol/L POC Total CO2 19 L (24-31) mmol/L Anion Gap 18 H (3-11) POC Anion Gap 21.0 (16-25) mmol/L POC BUN 44 H (7-18) mg/dl BUN 43 H (6-23) mg/dl Creatinine 1.18 (0.6-1.2) mg/dl POC Creatinine 1.0 (0.6-1.3) mg/dl Est Cr Clr Drug Dosing 33.1 ml/min eGFR 46.12 BUN/Creatinine Ratio 36.4 H (10-20) Glucose 424 H* (70-99(Fasting)) mg/dl POC Glucose (other) 415 H* (70-99) mg/dl Estimat Average Glucose 364 mg/dl Hemoglobin A1c 14.3 H (4.5-5.6) % Calcium 11.3 H (8.6-10.3) mg/dl POC Ioniz Calcium Abhijit 1.28 (1.12-1.32) mmol/l Magnesium 2.6 H (1.7-2.4) mg/dl Total Bilirubin 0.7 (0.2-1.0) mg/dl AST 26 (13-39) U/L ALT 36 (7-52) U/L Alkaline Phosphatase 27 L (34-104) U/L Total Creatine Kinase 156 (26-192) U/L Troponin I High Sens 54.6 H* (0-14) pg/ml Total Protein 7.3 (6.0-8.3) gm/dl Albumin 4.7 (3.4-5.0) gm/dl Globulin 2.6 (2.5-4.0) gm/dl Albumin/Globulin Ratio 1.8 (0.9-2) TSH 2.911 (0.300-4.500) uIu/ml PTH Intact 49.1 (12.0-88.0) pg/ml 06/07/24 Range/Units 10:03 WBC (4.8-10.8) K/ul RBC (4.20-5.40) M/uL Hgb (12.0-16.0) g/dl POC Hgb (12.0-16.0) g/dl Hct (37.0-47.0) % POC Hct (37-47) % MCV (80.0-100.0) fL MCH (25.0-34.0) pg MCHC (32.0-36.0) g/dL RDW Std Deviation (36.4-46.3) fL RDW Coeff of Landry (11.5-14.5) % Plt Count (130-400) K/uL MPV (9.4-12.4) fL Immature Gran % (Auto) % Neut % (Auto) % Lymph % (Auto) % [place] % (Auto) % Eos % (Auto) % Baso % (Auto) % Neut # (Auto) (1.40-6.50) K/uL Lymph # (Auto) (1.20-3.40) K/uL [place] # (Auto) (0.11-0.59) K/uL Eos # (Auto) (0.00-0.50) K/uL Baso # (Auto) (0.00-0.20) K/uL Immature Gran # (Auto) (0.01-0.20) K/uL PT (9.0-12.0) Seconds INR (0.9-1.1) APTT (21-31) Seconds PTT Ratio VBG pH 7.31 L (7.36-7.41) VBG pCO2 41 (38-50) mmHg VBG pO2 29 mmHg VBG HCO3 21 mmol/L VBG O2 Saturation < 60.0 % VBG Base Excess -5.4 mEq/L POC Sodium (135-144) mmol/L Sodium (136-145) mmol/L POC Potassium (3.3-5.0) mmol/L Potassium (3.5-5.1) mmol/L POC Chloride (101-112) mmol/L Chloride (98-107) mmol/L Carbon Dioxide (21-32) mmol/L POC Total CO2 (24-31) mmol/L Anion Gap (3-11) POC Anion Gap (16-25) mmol/L POC BUN (7-18) mg/dl BUN (6-23) mg/dl Creatinine (0.6-1.2) mg/dl POC Creatinine (0.6-1.3) mg/dl Est Cr Clr Drug Dosing ml/min eGFR BUN/Creatinine Ratio (10-20) Glucose (70-99(Fasting)) mg/dl POC Glucose (other) (70-99) mg/dl Estimat Average Glucose mg/dl Hemoglobin A1c (4.5-5.6) % Calcium (8.6-10.3) mg/dl POC Ioniz Calcium Abhijit (1.12-1.32) mmol/l Magnesium (1.7-2.4) mg/dl Total Bilirubin (0.2-1.0) mg/dl AST (13-39) U/L ALT (7-52) U/L Alkaline Phosphatase (34-104) U/L Total Creatine Kinase (26-192) U/L Troponin I High Sens (0-14) pg/ml Total Protein (6.0-8.3) gm/dl Albumin (3.4-5.0) gm/dl Globulin (2.5-4.0) gm/dl Albumin/Globulin Ratio (0.9-2) TSH (0.300-4.500) uIu/ml PTH Intact (12.0-88.0) pg/ml Administered Medications Insulin Aspart (Insulin Aspart Per Unit Charge) 0 units SC ACHS YURI Stop: 07/07/24 12:59 Last Admin: 06/07/24 16:07 Dose: Not Given Documented By: AV Co-signed By: RRR Discontinued Medications Aspirin (Aspirin 81 Mg Chew) 324 mg PO NOW STA Stop: 06/07/24 13:28 Last Admin: 06/07/24 14:04 Dose: 324 mg Documented By: AV Sodium Chloride (Nss) 500 mls @ 999 mls/hr IV .Q31M ONE Stop: 06/07/24 10:17 Last Infusion: 06/07/24 10:56 Dose: Infused Documented By: Admin: 06/07/24 10:04 Dose: 999 mls/hr Documented By: ROBERTO Sodium Chloride (Nss) 500 mls @ 999 mls/hr IV .Q31M ONE Stop: 06/07/24 10:52 Last Infusion: 06/07/24 11:37 Dose: Infused Documented By: Admin: 06/07/24 11:00 Dose: 999 mls/hr Documented By: FLAVIO Famotidine (Pepcid 20mg Iv Push) 20 mg in 5 mls @ 2.5 mls/min IV NOW STA Stop: 06/07/24 13:37 Last Admin: 06/07/24 16:25 Dose: Not Given Documented By: AV Insulin Human Regular (Novolin-R Insulin Per Unit Charge) 10 units IV NOW STA Stop: 06/07/24 10:41 Last Admin: 06/07/24 11:00 Dose: 10 units Documented By: FLAVIO Co-signed By: ROBERTO Nitroglycerin (Nitroglycerin Sl 0.4 Mg/Tab Tab) 0.4 mg SL NOW STA Stop: 06/07/24 13:18 Last Admin: 06/07/24 14:05 Dose: Not Given Documented By: VA Nitroglycerin (Nitroglycerin Sl 0.4 Mg/Tab Tab) Confirm Administered Dose 0.4 mg .ROUTE .STK-MED ONE Stop: 06/07/24 13:20 Last Admin: 06/07/24 13:25 Dose: 0.4 mg Documented By: [facility] Imaging Data Radiologist's Impression: Chest X-Ray 06/07/24 09:30 XR chest 1V portable CLINICAL HISTORY: fall r/o pnx COMPARISON STUDY: Chest radiograph and chest CT March 20, 2024. FINDINGS: No pneumothorax or pleural effusion. There is no consolidation or evidence for pulmonary edema. Cardiomediastinal silhouette is stable. IMPRESSION: No acute cardiopulmonary findings. ACT 112: Negative or not required by law. Electronically signed by: Dom Ambrosio M.D. 06/07/2024 10:21 AM Hip/Pelvis X-Ray 06/07/24 09:46 XR hip LT 2V w pelvis HISTORY: 83 years-old Female fall acute pelvic pain status post fall COMPARISON: CT 03/20/2024 TECHNIQUE: AP view the pelvis with 2 views of the left hip FINDINGS: Mhby-ok-tijheqvy osteoarthritis of the hips. No acute fracture, dislocation or avascular necrosis. Unremarkable soft tissues. IMPRESSION: No acute fracture or dislocation. ACT 112: Negative or not required by law. The above report was generated using voice recognition software. It may contain grammatical, syntax or spelling errors. Electronically signed by: Odin Fritz M.D. 06/07/2024 11:[address] 06/07/24 09:47 CT OF THE CERVICAL SPINE WITHOUT CONTRAST CLINICAL HISTORY: fall, trauma COMPARISON STUDY: MRI of the cervical spine July 29, 2014. CTA of the neck November 20, 2020. TECHNIQUE: Helical axial images of the cervical spine were obtained without IV contrast. Sagittal and coronal reconstructions were viewed. Automated exposure control was utilized for the study. A dose lowering technique was utilized adhering to the principles of ALARA. FINDINGS: Reversal of the cervical lordosis is unchanged. Vertebral body heights are maintained. No acute cervical spine fracture or subluxation is present. There is no prevertebral edema. Facet joints are intact. Moderate multilevel degenerative disc disease and facet arthrosis is again noted. IMPRESSION: No acute cervical spine fracture or subluxation. ACT 112: Negative or not required by law. Electronically signed by: Dom Ambrosio M.D. 06/07/2024 11:[address] 06/07/24 09:47 CT head/brain wo con CLINICAL HISTORY: 83 years-old Female with fall, plavix. TECHNIQUE: Multiple axial CT images of the head were obtained without contrast. A dose lowering technique was utilized adhering to the principles of ALARA. COMPARISON: Brain MRI 11/20/20. FINDINGS: No acute intracranial hemorrhage, midline shift, intracranial mass, hydrocephalus, territorial ischemia or abnormal extra-axial collection. There are age-related involutional changes noting moderate to advanced subcortical and periventricular microangiopathic change. Calcification above the right mastoids along the tentorium is unchanged. The calvarium is intact. The paranasal sinuses, mastoid air cells, and middle ear cavities are clear. IMPRESSION: No acute intracranial findings. ACT 112: Negative or not required by law. The above report was generated using voice recognition software. It may contain grammatical, syntax or spelling errors. Electronically signed by: Odin Fritz M.D. 06/07/2024 10:54 AM Discharge Plan Visit Data Chief Complaint: Trauma Stated Complaint: FALL ED Provider: Caleb Schmitt Discharge Problem: Weakness, Elevated troponin, Fall, Acute dehydration, Acute hyperglycemia, Acute hyperkalemia Patient Disposition: Admitted As Inpatient Condition: Fair Discharge Instructions Interventions: ED Discharge Assessment Last Done: 06/07/24 12:13 Discharge Problem: Fall Qualifiers: Encounter type: initial encounter Qualified Code(s): W19.XXXA - Unspecified fall, initial encounter
[2024-06-07 09:59] LABS: iSTAT Ionized Calcium 1.28 mmol/l (1.12-1.32); iSTAT Potassium 5.1 mmol/L (3.3-5.0)
[2024-06-07] MEDS: SODIUM CHLORIDE 0.9% 500 ML IV ONE ×2 (10:04→11:00)
[2024-06-07 10:15] LABS: Basophils # (auto) 0.05 K/uL (0.00-0.20); Basophils % (auto) 0.4 %; Eosinophils # (auto) 0.04 K/uL (0.00-0.50); Eosinophils % (auto) 0.3 %; Hematocrit (blood only) 41.8 % (37.0-47.0); Hemoglobin 14.7 g/dl (12.0-16.0); Immature Granulocytes # (auto) 0.05 K/uL (0.01-0.20); Immature Granulocytes % (auto) 0.4 %; Lymphocytes # (auto) 1.05 K/uL (1.20-3.40); Lymphocytes % (auto) 8.9 %; Mean Corpuscular Hemoglobin 30.7 pg (25.0-34.0); Mean Corpuscular Hgb Conc 35.2 g/dL (32.0-36.0); Mean Corpuscular Volume 87.3 fL (80.0-100.0); Mean Platelet Volume 10.4 fL (9.4-12.4); Monocytes # (auto) 0.93 K/uL (0.11-0.59); Monocytes % (auto) 7.9 %; Neutrophils # (auto) 9.64 K/uL (1.40-6.50); Neutrophils % (auto) 82.1 %; Platelet Count 187 K/uL (130-400); RDW Coefficient of Variation 13.1 % (11.5-14.5); Red Blood Count 4.79 M/uL (4.20-5.40); White Blood Count 11.76 K/ul (4.8-10.8)
[2024-06-07 10:23] LABS: Base Excess VBG -5.4 mEq/L; HCO3 VBG 21 mmol/L; Oxygen Saturation VBG < 60.0 %; PCO2 VBG 41 mmHg (38-50); PO2 VBG 29 mmHg; pH VBG 7.31 (7.36-7.41)
--- NOTE | 2024-06-07 10:23 | XRay Report ---
XR chest 1V portable CLINICAL HISTORY: fall r/o pnx COMPARISON STUDY: Chest radiograph and chest CT March 20, 2024. FINDINGS: No pneumothorax or pleural effusion. There is no consolidation or evidence for pulmonary ed cale. Cardiomediastinal silhouette is stable. IMPRESSION: No acute cardiopulmonary findings. ACT 112: Negative or not required by law. Electronically signed by: Dom Ambrosio M.D. 06/07/2024 10:21 AM
[2024-06-07 10:35] LABS: Albumin Globulin Ratio 1.8 (0.9-2); Albumin Level 4.7 gm/dl (3.4-5.0); BUN Creatinine Ratio 36.4 (10-20); Bilirubin,Total 0.7 mg/dl (0.2-1.0); Calcium 11.3 mg/dl (8.6-10.3); Creatinine Clr Calc Pharmacy 33.1 ml/min; Globulin 2.6 gm/dl (2.5-4.0); Magnesium 2.6 mg/dl (1.7-2.4); Potassium 5.5 mmol/L (3.5-5.1); Total Protein 7.3 gm/dl (6.0-8.3)
[2024-06-07 10:42] LABS: Estimated Average Glucose 364 mg/dl; Hemoglobin A1C 14.3 % (4.5-5.6)
[2024-06-07 10:43] LABS: Partial Thromboplastin Ratio 0.9; Partial Thromboplastin Time 25 Seconds (21-31); Prothrombin Time 10.6 Seconds (9.0-12.0)
[2024-06-07 10:44] LABS: Troponin I High Sensitivity 54.6 pg/ml (0-14)
[2024-06-07 10:48] LABS: Thyroid Stimulating Hormone 2.911 uIu/ml (0.300-4.500)
--- NOTE | 2024-06-07 10:56 | CT Scan Report ---
CT head/brain wo con CLINICAL HISTORY: 83 years-old Female with fall, plavix. TECHNIQUE: Multiple axial CT images of the head were obtained without contrast. A dose lowering tech nique was utilized adhering to the principles of ALARA. COMPARISON: Brain MRI 11/20/20. FINDINGS: No acute intracranial hemorrhage, midline shift, intracranial mass, hydrocephalus, territorial ischem ia or abnormal extra-axial collection. There are age-related involutional changes noting moderate to advanced subcortical and periventricular microangiopathic change. Calcification above the right masto ids along the tentorium is unchanged. The calvarium is intact. The paranasal sinuses, mastoid air cells, and middle ear cavities are clear . IMPRESSION: No acute intracranial findings. ACT 112: Negative or not required by law. The above report was generated using voice recognition software. It may contain grammatical, syntax o r spelling errors. Electronically signed by: Odin Fritz M.D. 06/07/2024 10:54 AM
[2024-06-07] MEDS: NovoLIN-R INSULIN PER UNIT CHARGE IV STA (11:00)
--- NOTE | 2024-06-07 11:06 | History & Physical Report ---
Date of Service June 07, 2024 Assessment & Plan (1) Recurrent falls: Plan: 3 falls on the evening of 06/06 No head strike or LOC, but unable to get up on her own Patient lives alone Head/cervical spine CT without acute findings Left hip x-ray without acute fractures or dislocation PT/OT evaluations appreciated Fall precautions A.m. CBC, BMP (2) Hyperglycemia: Plan: Glucose 424 on arrival; suspect poorly controlled diabetes is contributing to her falls Regular human insulin 10 units IV x 1 Trend BSG Diabetes counselor consult appreciated, as patient will likely require long- acting insulin injections upon discharge and follow-up with PCP (3) Diabetes mellitus, type 2: Plan: Last A1c at 14.3% on 06/07/2024 Not currently on insulin therapy at home Hold n.p.o. fluids and Lantus 8 u BID while inpatient SSI; with target BSG range 110-140mg/dL, CF 30, carb ratio 10 T2DM diet BSG ACHS Adjust regimen as needed (4) Dysphagia: Plan: Ongoing; follows with Dr. Batista send patient; reports recent EGD with dilation Aspiration precautions Speech therapy consult (5) Dehydration: Plan: Patient appears clinically dry and volume contracted on arrival NSS 500 mL IV x 2 Encourage p.o. fluids in the setting of national IVF shortage (6) Hypercalcemia: Plan: PTH ordered, pending (7) Elevated troponin: (8) Hyperkalemia: (9) Leukocytosis: Plan [facility] T2DM diet (aspiration precautions) VTE PPx: Teds; high fall risk History of Present Illness Chief Complaint: Trauma Primary Care Provider: Bethany Bolivar MD Citlaly is a pleasant 83-year-old female with PMH of HTN, dyslipidemia, osteoporosis, hypothyroidism, T2DM, NSTEMI, and LBBB. She presented via EMS on 06/07 after experiencing 3 falls since 9 PM last night. She presented as a trauma alert in the ED. Patient currently takes Plavix, but she is unsure why. She denies any head strike or LOC. No dizziness or lightheadedness prior to fall. Patient lives by herself. She reports that she had her first fall on Monday night when she was sleeping on her couch; she fell off the couch and onto the floor and had to crawl to her recliner to get back up. She was down for several minutes but was able to stand on her own. The fall was last night on , she was unable to get up on her own. She clicked her necklace and EMS was called. When they arrived they were able to get her up, and she initially declined going to the hospital. However this occurred 2 more times that she was getting ready for bed; she would have fall and being able to get up on her own. When asked why she falls, she reports that her left leg gives out on her. She reports that this has been a chronic issue, but it has been worse this past week. She used to have steroid injections in her left hip, but stopped doing this a while ago. She ambulates with a cane at baseline, and reports that she was using the cane whenever she fell. No recent injuries to the head or neck. Patient did not take her regular morning medicines today; she manages her own medicine at home, and denies any recent medication changes. She follows with Dr. Batista for dysphagia, and reports that she has had difficulty swallowing pills and food in the past due to her dysphagia. She also coughs/vomits up her medications when she feels they get stuck. Per patient, she had a recent EGD and dilation, and was supposed to have an appointment today with GI. Patient did not know she has a history of diabetes. No history of stroke to her knowledge, and she denies strokelike symptoms this week such as slurred speech, facial droop, or left side of her body "giving out" on her. Patient takes Plavix, but is unsure why, and denies past medical history of heart stents. In regard to her left hip, she does report that she has ongoing left hip pain with walking and standing; no hip pain at rest. She has been taking Tylenol as needed for the pain. She reports that she had 9/10 pain after falling last night, but she currently has 0/10 pain at present sitting in bed. She denies smoking, tobacco use, recent alcohol use. Patient is hypertensive at 161/92 at time of admission; vitals otherwise stable. ED course: NSS 500 mL IV x 2 Regular insulin 10 units IV ROS: Patient endorses recurrent falls, LLE weakness, dry mouth, dysphagia, vomiting (which patient attributes to getting food stuck in her throat), lower back pain, and intermittent urinary incontinence (not new for her). Patient denies fever, chills, night-sweats, dizziness, lightheadedness, headache, fainting, slurred speech, facial droop, unilateral deficits, chest pain, SOB, cough, nausea, diarrhea, burning with urination, blood in the urine/stool, saddle anesthesia, or numbness/tingling in the legs. Addendum: Was alerted by nursing staff that patient developed 7/10 substernal chest pain upon making up to the medical floor. Patient was reassessed at bedside after receiving nitroglycerin, and reports that her pain is 0/10 at present. Her pain was substernal without radiation to either shoulder or arm. She characterizes it as a "pressure" pain that felt like past episodes of GERD. It developed at rest. At present, her largest concern is getting food/eating. Per review of prior notes from her past hospitalization in February 2024, she does have a history of GERD, esophageal problems, and Schatzki ring which are likely contributory here. In the setting of elevated troponin, acute onset of chest pain, and uncontrolled diabetes, will give aspirin 324 mg p.o. and trend troponin. Discussed case with cardiology. Given likelihood of GI etiology, they recommended deferring an additional echocardiogram at this time (last echo was in February 2024); recommended outpatient follow-up. Allergies Allergy/AdvReac Type Severity Reaction Status Date / Time nickel Allergy Mild RASH Verified 05/13/24 09:31 Penicillins Allergy Mild Rash and Verified 05/13/24 09:31 throat tightness ranitidine Allergy Mild rash Verified 05/13/24 09:31 Sulfa (Sulfonamide Allergy Mild rash Verified 05/13/24 09:31 Antibiotics) ciprofloxacin AdvReac Mild GI SYMPTOMS Verified 05/13/24 09:31 ibuprofen AdvReac Mild TACHYCARDIA Verified 05/13/24 09:31 meclizine AdvReac Mild GI SYMPTOMS Verified 05/13/24 09:31 oxycodone AdvReac Mild Nausea/Vomi Verified 05/13/24 09:31 ting Home Medications Medication Instructions Recorded Confirmed Type cholecalciferol (vitamin D3) 50 2,000 units PO QAM 08/16/19 06/07/24 History mcg (2,000 unit) tablet ascorbate calcium (vitamin C) 500 1 g PO QAM 08/18/20 06/07/24 History mg tablet menthol 16 % topical spray (Icy 1 spray topical HS 08/18/20 06/07/24 History Hot (menthol)) melatonin 10 mg tablet 10 mg PO HS PRN Sleep 06/02/21 06/07/24 History acetaminophen 500 mg tablet 1,000 mg (2 x 500 mg) PO Q8H PRN 04/11/22 06/07/24 Rx (Tylenol Extra Strength) Pain #180 tabs biotin 10,000 mcg chewable tablet 10,000 mcg PO QAM 04/03/24 06/07/24 History (Hair, Skin and Nails (biotin)) clopidogrel 75 mg tablet (Plavix) 75 mg PO QAM 04/03/24 06/07/24 History losartan 100 mg tablet 100 mg PO QAM 04/03/24 06/07/24 History solifenacin 10 mg tablet (Vesicare) 10 mg PO QAM 04/03/24 06/07/24 History levothyroxine 112 mcg tablet 112 mcg PO QAM #90 tabs 04/04/24 06/07/24 Rx amlodipine 5 mg tablet (Norvasc) 10 mg (2 x 5 mg) PO QAM #90 tabs 04/15/24 06/07/24 Rx pantoprazole 40 mg tablet,delayed 40 mg PO BID 1 month #180 tabs 04/15/24 06/07/24 Rx release triamterene 37.5 1 tab PO DAILY #90 tabs 04/28/24 06/07/24 Rx mg-hydrochlorothiazide 25 mg tablet empagliflozin 25 mg tablet 25 mg PO DAILY #90 tabs 05/13/24 06/07/24 Rx (Jardiance) Past Med/Surg History Problem List (Updated 06/07/24 @ 12:15 by Waqar Garrison PA-C) Dehydration Leukocytosis Diabetes mellitus, type 2 NIDDM Hypercalcemia Hyperkalemia Elevated troponin Hyperglycemia Recurrent falls Dysphagia LBBB (left bundle branch block) NSTEMI (non-ST elevated myocardial infarction) Elevated troponin I level (Acute) Abnormal EKG (Acute) Hypertriglyceridemia Dyslipidemia Nephrotic range proteinuria Hyperparathyroidism 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 Chronic nonallergic rhinitis 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 Dysphonia LPRD (laryngopharyngeal reflux disease) Esophageal dysphagia Osteoarthritis Intraductal cancer of right breast (Chronic 09/03/17) Esophageal reflux Diverticulosis of colon Chronic sinusitis Hypothyroidism Osteoporosis Hypertension Medical History LBBB (left bundle branch block) Esophageal reflux Diverticulosis of colon Dysphagia LPRD (laryngopharyngeal reflux disease) Mixed stress and urge incontinence Osteoporosis Osteoarthritis Diabetes mellitus, type 2 Hypertension Hypothyroidism Afib HX: breast cancer Arthritis History of gastric ulcer Hearing deficit Stomach ulcer Insomnia Anxiety Restless leg syndrome Migraine Surgical History History of esophagogastroduodenoscopy (EGD) Nausea and vomiting after administration of anesthetic agent History of endoscopic sinus surgery History of colonoscopy Hx of lumpectomy History of total abdominal hysterectomy and bilateral salpingo-oophorectomy Trigger finger History of tooth extraction History of cataract surgery H/O nasal septoplasty H/O hand surgery Family History Mother Hearing loss Hypertension Heart disease Father Hearing loss Hypertension Cancer Brother Stroke Other Cancer of kidney Denies family history of Breast cancer Social History Smoking Status: Former smoker Tobacco Type: Cigarettes Age Started Using Tobacco: 17; Age Quit Using Tobacco: 30; packs per day: 1; Second Hand Exposure: Yes (hx ex smoked); Do You Dip or Chew Tobacco: No; Hx Alcohol Use: No Hx Substance Use: No Preferred Language: Czech Communication Ability: Effective Hearing Ability: Use of Hearing Aid Deaf Teacher Required: No Beliefs That Will Affect Care: None marital status: Single Current Living Situation: Alone current occupational status: retired Feels Safe at Home: Yes Safety Concerns: Feels Safe At This Time Childhood Exposure to Second-Hand Smoke: No Diet: diabetic caffeine: No Dental Care, Regularly: No Physical Activity Frequency: Daily Seatbelt Use: always Sunscreen Use: No Assistive Devices: Denture - Upper, Denture - Lower and Hearing Aid - Bilateral Review of Systems Review of Systems: See HPI above Physical Exam Physical Exam: General: no acute distress; pleasant affect; non-toxic appearing; frail appearing; cooperative; SpO2 98% on RA HEENT: normocephalic, atraumatic; no scleral icterus; PERRLA w/ EOMs intact; vision and hearing grossly intact Neck: supple; no lymphadenopathy; trachea midline Skin: warm, dry without signs of tenting; no cyanosis; no rashes, bruising, lesions, or erythema noted CV: chest wall NTP; RRR; S1/S2 normal; no murmurs/rubs/gallops; pulses intact and symmetric at radial, DP, and PT Lungs: no acute respiratory distress; symmetrical chest wall expansion; clear breath sounds across all lung mendoza w/o adventitious sounds; no wheezing ABD: Soft, NTP; BS present; no rebound/guarding; no distention Back: No skin breakdown; mid thoracic back pain with palpation; lower spine NTP; negative CVA tenderness bilaterally Left lower extremity: Mild TTP of the left hip; patient demonstrates ability to wiggle toes/plantarflex/dorsiflex/bend knee without pain; mild superficial scrape on her left knee; 2/5 strength when lifting left leg from the bed supine (compared to 3/5 strength lifting leg with the right) MSK: no tics or fasciculations; no edema noted in the LEs b/l, nonerythematous Neuro: A&Ox3; normal mood and affect; fluent speech; no facial droop; no focal deficits; sensation intact and symmetric in lower extremities bilaterally Results & Data Results & Data Vital Signs (Past 12 Hours) Vital Signs Temp Pulse Pulse Resp BP BP Pulse Ox 06/07/24 10:31 83 16 161/92 H 98 06/07/24 09:56 77 06/07/24 09:47 36.7 C 85 18 150/75 H 98 06/07/24 09:43 36.7 C 90 22 150/75 H 99 06/07/24 09:30 98 06/07/24 09:30 O2 Del Method 06/07/24 10:31 Room Air 06/07/24 09:56 06/07/24 09:47 Room Air 06/07/24 09:43 Room Air 06/07/24 09:30 Room Air 06/07/24 09:30 Room Air Laboratory Results Abnormal lab results 06/07/24 06/07/24 06/07/24 Range/Units 09:37 09:46 10:03 WBC 11.76 H (4.8-10.8) K/ul Neut # (Auto) 9.64 H (1.40-6.50) K/uL Lymph # (Auto) 1.05 L (1.20-3.40) K/uL [place] # (Auto) 0.93 H (0.11-0.59) K/uL VBG pH 7.31 L (7.36-7.41) POC Sodium 131 L (135-144) mmol/L Sodium 132 L (136-145) mmol/L POC Potassium 5.1 H (3.3-5.0) mmol/L Potassium 5.5 H (3.5-5.1) mmol/L POC Chloride 97 L (101-112) mmol/L Chloride 93 L (98-107) mmol/L POC Total CO2 19 L (24-31) mmol/L Anion Gap 18 H (3-11) POC BUN 44 H (7-18) mg/dl BUN 43 H (6-23) mg/dl BUN/Creatinine Ratio 36.4 H (10-20) Glucose 424 H* (70-99(Fasting)) mg/dl POC Glucose (other) 415 H* (70-99) mg/dl Hemoglobin A1c 14.3 H (4.5-5.6) % Calcium 11.3 H (8.6-10.3) mg/dl Magnesium 2.6 H (1.7-2.4) mg/dl Alkaline Phosphatase 27 L (34-104) U/L Troponin I High Sens 54.6 H* (0-14) pg/ml Diagnostic Findings Chest X-Ray 06/07/24 09:30 XR chest 1V portable CLINICAL HISTORY: fall r/o pnx COMPARISON STUDY: Chest radiograph and chest CT March 20, 2024. FINDINGS: No pneumothorax or pleural effusion. There is no consolidation or evidence for pulmonary edema. Cardiomediastinal silhouette is stable. IMPRESSION: No acute cardiopulmonary findings. ACT 112: Negative or not required by law. Electronically signed by: Dom Ambrosio M.D. 06/07/2024 10:21 AM Hip/Pelvis X-Ray 06/07/24 09:46 XR hip LT 2V w pelvis HISTORY: 83 years-old Female fall acute pelvic pain status post fall COMPARISON: CT 03/20/2024 TECHNIQUE: AP view the pelvis with 2 views of the left hip FINDINGS: [id number] osteoarthritis of the hips. No acute fracture, dislocation or avascular necrosis. Unremarkable soft tissues. IMPRESSION: No acute fracture or dislocation. ACT 112: Negative or not required by law. The above report was generated using voice recognition software. It may contain grammatical, syntax or spelling errors. Electronically signed by: Odin Fritz M.D. 06/07/2024 11:[address] 06/07/24 09:47 CT head/brain wo con CLINICAL HISTORY: 83 years-old Female with fall, plavix. TECHNIQUE: Multiple axial CT images of the head were obtained without contrast. A dose lowering technique was utilized adhering to the principles of ALARA. COMPARISON: Brain MRI 11/20/20. FINDINGS: No acute intracranial hemorrhage, midline shift, intracranial mass, hydrocephalus, territorial ischemia or abnormal extra-axial collection. There are age-related involutional changes noting moderate to advanced subcortical and periventricular microangiopathic change. Calcification above the right mastoids along the tentorium is unchanged. The calvarium is intact. The paranasal sinuses, mastoid air cells, and middle ear cavities are clear. IMPRESSION: No acute intracranial findings. ACT 112: Negative or not required by law. The above report was generated using voice recognition software. It may contain grammatical, syntax or spelling errors. Electronically signed by: Odin Fritz M.D. 06/07/2024 10:54 AM ECG Additional Comments: ECG revealed NSR at 77 bpm; QTc 445; LBBB (not new) Code Status & VTE Plan Code Status DNR/deny (discussed with patient at bedside) VTE Prophylaxis Plan VTE Prophylaxis will be ordered: Yes Supervising Physician Co-Signing Physician Notes Patient seen and examined, chart reviewed, case discussed with Waqar Garrison PA-C and I agree with the assessment and plan as above except as otherwise noted Labs and images reviewed 83-year-old female with a past medical history of type II DM, left bundle branch block, CAD, hypothyroidism, hypertension, dyslipidemia who presents with nonfocal weakness, falls, hyperglycemia and clinical volume contraction. No chest pain however troponin is mildly elevated at 54, repeat pending. Appears volume contracted and magnesium, glucose, potassium and BUN/creatinine ratio are elevated consistent with this. Has received 1 L IV fluids while in the ER. Orals pushed patient is seen in a period of critical IV fluid shortage. Has received 10 units IV insulin for hyperglycemia and has been transferred to subcu. Hemoglobin A1c 14.3%, uncontrolled diabetes at baseline. She is on an SGLT2 inhibitor, she is not on metformin as she was not able to swallow the pills. She has a A1c greater than 10, meets criteria for initiation of basal insulin, with liberalize goal due to age and comorbidity. Will place her on weight-based basal bolus on admission, as she has had difficulty tolerating and swallowing pills which suggest a low-dose of Lantus trial as outpatient for persistent severe hyperglycemia now with progressive weakness? HHS. Multiple falls due to global weakness but fortunately has no focal findings, CThead and CTC-spine are without acute abnormalities. Leukocytosis is mildly elevated without a left shift. She is on SGLT2 and has a history of UTIs with frequency although notes this has not changed however she does not have any new urinary symptoms, and UA is not infected appearing. Antibiotics are not currently indicated. PG Care Time/CCT Total # of Minutes Spent Total Time Spent with Patient: Total time spent is greater than 50% in coordination of care (as documented) at patient's floor/unit and/or counseling patient: C[place] [address] INT INP/OBS CARE 3/75MIN Patient Type Established History Comprehensive Exam Comprehensive Medical Decision Making High Complexity Diagnoses Recurrent falls R29.6 Hyperglycemia R73.9 Diabetes mellitus, type 2 E11.9 Dysphagia R13.10 Dehydration E86.0 Hypercalcemia E83.52 Elevated troponin R79.89 Hyperkalemia E87.5 Leukocytosis D72.829
--- NOTE | 2024-06-07 11:06 | XRay Report ---
XR hip LT 2V w pelvis HISTORY: 83 years-old Female fall acute pelvic pain status post fall COMPARISON: CT 03/20/2024 TECHNIQUE: AP view the pelvis with 2 views of the left hip FINDINGS: [id number] osteoarthritis of the hips. No acute fracture, dislocation or avascular necrosis. Un remarkable soft tissues. IMPRESSION: No acute fracture or dislocation. ACT 112: Negative or not required by law. The above report was generated using voice recognition software. It may contain grammatical, syntax o r spelling errors. Electronically signed by: Odin Fritz M.D. 06/07/2024 11:05 AM
--- NOTE | 2024-06-07 11:08 | CT Scan Report ---
CT OF THE CERVICAL SPINE WITHOUT CONTRAST CLINICAL HISTORY: fall, trauma COMPARISON STUDY: MRI of the cervical spine July 29, 2014. CTA of the neck November 20, 2020. TECHNIQUE: Helical axial images of the cervical spine were obtained without IV contrast. Sagittal a nd coronal reconstructions were viewed. Automated exposure control was utilized for the study. A do se lowering technique was utilized adhering to the principles of ALARA. FINDINGS: Reversal of the cervical lordosis is unchanged. Vertebral body heights are maintained. No a cute cervical spine fracture or subluxation is present. There is no prevertebral edema. Facet joints are intact. Moderate multilevel degenerative disc disease and facet arthrosis is again noted. IMPRESSION: No acute cervical spine fracture or subluxation. ACT 112: Negative or not required by law. Electronically signed by: Dom Ambrosio M.D. 06/07/2024 11:07 AM
[2024-06-07 11:49] LABS: Appearance Urine Clear (Clear); Bilirubin Urine Negative (Negative); Blood Urine Negative (Negative); Color Urine Yellow; Glucose Urine UA 3+ (Negative); Ketones Urine 3+ (Negative); Leukocyte Esterase Urine Negative (Negative); Nitrite Urine Negative (Negative); Protein Urine Negative (Negative); Specific Gravity Urine 1.029 (1.000-1.030); Urobilinogen Urine Negative (Negative)
[2024-06-07] MEDS ORDERED: GLUCOSE 40% GEL 15 GM TUBE PO PRN (12:40)
[2024-06-07] MEDS ORDERED: DEXTROSE 50% 50 ML SYRINGE IV PRN (12:40)
[2024-06-07] MEDS ORDERED: GLUCOSE 10 TAB/TUBE PO PRN (12:40)
[2024-06-07] MEDS ORDERED: GLUCAGON FOR INJ 1 MG VIAL SQ PRN (12:40)
[2024-06-07] MEDS ORDERED: CARBOHYDRATES FOR HYPOGLYCEMIA PO PRN (12:40)
[2024-06-07] MEDS ORDERED: MELATONIN 3 MG TAB PO PRN (12:44)
[2024-06-07] MEDS ORDERED: NITROGLYCERIN SL 0.4 MG/TAB TAB SL PRN (13:17)
[2024-06-07] MEDS: NITROGLYCERIN SL 0.4 MG/TAB TAB ONE (13:25)
--- NOTE | 2024-06-07 13:53 | Electrocardiogram Report ---
Test Reason : Blood Pressure : */* mmHG Vent. Rate : 77 BPM Atrial Rate : 77 BPM P-R Int : 166 ms QRS Dur : 142 ms QT Int : 394 ms P-R-T Axes : 87 -49 84 degrees QTcB Int : 445 ms Normal sinus rhythm Left axis deviation Left bundle branch block Abnormal ECG When compared with ECG of 20-Mar-2024 14:44, Premature atrial complexes are no longer Present Left bundle branch block has replaced Non-specific intra-ventricular conduction block Minimal criteria for Anterior infarct are no longer Present Confirmed by Mark Snowden ([id number]) on 06/07/2024 1:52:53 PM Referred By: Confirmed By: Mark Snowden
[2024-06-07] MEDS: ASPIRIN 81 MG CHEW PO STA (14:04)
[2024-06-07] MEDS: NITROGLYCERIN SL 0.4 MG/TAB TAB SL STA (14:05)
[2024-06-07] MEDS: INSULIN ASPART PER UNIT CHARGE SC SCH (16:07)
[2024-06-07] MEDS: FAMOTIDINE 20MG IV PUSH 20 MG/5 ML SYR IV STA (16:25)
[2024-06-07] MEDS: PANTOprazole 40 MG TAB PO SCH (19:42)
[2024-06-07] MEDS: LANTUS PER UNIT CHARGE SQ SCH (20:02)
[2024-06-08 07:35] LABS: Basophils # (auto) 0.04 K/uL (0.00-0.20); Basophils % (auto) 0.5 %; Eosinophils # (auto) 0.13 K/uL (0.00-0.50); Eosinophils % (auto) 1.5 %; Hematocrit (blood only) 37.4 % (37.0-47.0); Hemoglobin 13.2 g/dl (12.0-16.0); Immature Granulocytes # (auto) 0.05 K/uL (0.01-0.20); Immature Granulocytes % (auto) 0.6 %; Lymphocytes % (auto) 17.5 %; Mean Corpuscular Hemoglobin 31.1 pg (25.0-34.0); Mean Corpuscular Hgb Conc 35.3 g/dL (32.0-36.0); Mean Platelet Volume 9.8 fL (9.4-12.4); Monocytes # (auto) 0.64 K/uL (0.11-0.59); Monocytes % (auto) 7.5 %; Neutrophils # (auto) 6.23 K/uL (1.40-6.50); Neutrophils % (auto) 72.4 %; Platelet Count 174 K/uL (130-400); RDW Coefficient of Variation 13.3 % (11.5-14.5); RDW Standard Deviation 42.6 fL (36.4-46.3); Red Blood Count 4.25 M/uL (4.20-5.40); White Blood Count 8.59 K/ul (4.8-10.8)
[2024-06-08 08:00] LABS: BUN Creatinine Ratio 33.3 (10-20); Calcium 10.2 mg/dl (8.6-10.3); Creatinine Clr Calc Pharmacy 47.9 ml/min; Potassium 4.6 mmol/L (3.5-5.1)
[2024-06-08] MEDS: OXYBUTYNIN CHLORIDE XL 5 MG TABCR PO SCH (09:24)
[2024-06-08] MEDS: amLODIPine BESYLATE 5 MG TAB PO SCH (09:24)
[2024-06-08] MEDS: CLOPIDOGREL BISULFATE 75 MG TAB PO SCH (09:24)
[2024-06-08] MEDS: LEVOTHYROXINE SODIUM 112 MCG TABLET PO SCH (09:24)
[2024-06-08] MEDS: DICLOFENAC SOD 1% GEL 100 GM TUBE EXT SCH (09:25)
--- NOTE | 2024-06-08 12:41 | Hospitalist Progress Note ---
Date of Service June 08, 2024 Assessment & Plan (1) Recurrent falls: Plan: 3 falls on the evening of 06/06 No head strike or LOC, but unable to get up on her own Patient lives alone Head/cervical spine CT without acute findings Left hip x-ray without acute fractures or dislocation PT/OT consulted Case management on board Per case management note, daughter suggested patient needing rehab Fall precautions (2) Hyperglycemia: Plan: Glucose 424 on arrival; suspect poorly controlled diabetes is contributing to her falls Patient has been started on an insulin regimen Diabetes counselor consulted, as patient will likely require long-acting insulin injections upon discharge and follow-up with PCP (3) Diabetes mellitus, type 2: Plan: Last A1c at 14.3% on 06/07/2024 Patient had initially denied any knowledge of being a diabetic but per diabetes education note from 06/07, she recalled being on diabetes medications in the past. She was on metformin which she stopped due to inability to swallow the large pill. Lantus 8 u BID SSI; with target BSG range 110-140mg/dL, CF 30, carb ratio 10 T2DM diet BSG ACHS Adjust regimen as needed (4) Dysphagia: Plan: Ongoing; follows with Dr. Lester burnett patient; reports recent EGD with dilation Aspiration precautions Speech therapy consult (5) Dehydration: Plan: Improved Encourage p.o. fluids (6) Hypercalcemia: Plan: Most likely due to dehydration Normalized PTH normal (7) Elevated troponin: Plan: Troponins flat No chest pain Noncardiac Most likely demand ischemia (8) Hyperkalemia: (9) Leukocytosis: Plan DNR/DNI T2DM diet (aspiration precautions) VTE PPx: Teds; high fall risk Admission and Anticipated Discharge Date Admission Date: June 07, 2024 Subjective Patient was seen and examined at 11:30 AM. Patient denied any chest pain or shortness of breath. She does not have any complaints today other than feeling weak in general. Review of Systems Review of Systems: All systems reviewed & are unremarkable except as noted in Subjective Physical Exam Physical Exam: General: Awake, conversant Heart: S1, S2/regular rate and rhythm, no murmur rubs or gallops Lungs: Clear to auscultation bilaterally. Normal effort Abdomen: Soft/nontender/nondistended. No hepatosplenomegaly Extremities: No clubbing/cyanosis. No edema Behavior: Appropriate, cooperative Results & Data Results & Data Vital Signs (Past 12 Hours) Vital Signs Temp Pulse Pulse Pulse Resp BP Pulse Ox 06/08/24 11:44 36.5 C 76 16 146/76 H 95 06/08/24 08:00 85 06/08/24 08:00 06/08/24 07:41 37.4 C 80 14 159/76 H 95 06/08/24 03:49 36.5 C 88 18 145/70 H 95 06/08/24 01:13 92 H O2 Del Method 06/08/24 11:44 Room Air 06/08/24 08:00 06/08/24 08:00 Room Air 06/08/24 07:41 Room Air 06/08/24 03:49 Room Air 06/08/24 01:13 Laboratory Results Abnormal lab results 06/07/24 06/07/24 06/07/24 Range/Units 12:56 17:06 18:05 [place] # (Auto) (0.11-0.59) K/uL Carbon Dioxide (21-32) mmol/L Anion Gap (3-11) BUN (6-23) mg/dl BUN/Creatinine Ratio (10-20) Glucose (70-99(Fasting)) mg/dl POC Glucose 289 H (70-99) mg/dl Troponin I High Sens 59.1 H* 66.0 H* (0-14) pg/ml 06/07/24 06/08/24 06/08/24 Range/Units 19:38 07:10 08:16 [place] # (Auto) 0.64 H (0.11-0.59) K/uL Carbon Dioxide 20 L (21-32) mmol/L Anion Gap 15 H (3-11) BUN 27 H (6-23) mg/dl BUN/Creatinine Ratio 33.3 H (10-20) Glucose 212 H (70-99(Fasting)) mg/dl POC Glucose 255 H 207 H (70-99) mg/dl Troponin I High Sens (0-14) pg/ml 06/08/24 Range/Units 12:24 [place] # (Auto) (0.11-0.59) K/uL Carbon Dioxide (21-32) mmol/L Anion Gap (3-11) BUN (6-23) mg/dl BUN/Creatinine Ratio (10-20) Glucose (70-99(Fasting)) mg/dl POC Glucose 142 H (70-99) mg/dl Troponin I High Sens (0-14) pg/ml PG Care Time/CCT Total # of Minutes Spent Total Time Spent with Patient: Total time spent is greater than 50% in coordination of care (as documented) at patient's floor/unit and/or counseling patient: Coding Level of Care Code 78807 SUB INP/OBS CARE 2/35MIN Diagnoses Recurrent falls R29.6 Hyperglycemia R73.9 Diabetes mellitus, type 2 E11.9 Dysphagia R13.10 Dehydration E86.0 Hypercalcemia E83.52 Elevated troponin R79.89 Hyperkalemia E87.5 Leukocytosis D72.829
[2024-06-08] MEDS ORDERED: POLYETHYLENE (MIRALAX) 17 GM PACK PO PRN (21:11)
[2024-06-08] MEDS: SENNA 8.6 MG TAB PO PRN (21:43)
[2024-06-09 06:34] LABS: Basophils # (auto) 0.06 K/uL (0.00-0.20); Basophils % (auto) 1.2 %; Eosinophils # (auto) 0.16 K/uL (0.00-0.50); Eosinophils % (auto) 3.2 %; Hematocrit (blood only) 38.5 % (37.0-47.0); Hemoglobin 13.1 g/dl (12.0-16.0); Immature Granulocytes # (auto) 0.04 K/uL (0.01-0.20); Immature Granulocytes % (auto) 0.8 %; Lymphocytes # (auto) 1.34 K/uL (1.20-3.40); Lymphocytes % (auto) 27.2 %; Mean Corpuscular Hemoglobin 30.5 pg (25.0-34.0); Mean Corpuscular Volume 89.7 fL (80.0-100.0); Mean Platelet Volume 9.6 fL (9.4-12.4); Monocytes % (auto) 12.2 %; Neutrophils # (auto) 2.73 K/uL (1.40-6.50); Neutrophils % (auto) 55.4 %; Platelet Count 174 K/uL (130-400); RDW Coefficient of Variation 13.4 % (11.5-14.5); RDW Standard Deviation 43.7 fL (36.4-46.3); Red Blood Count 4.29 M/uL (4.20-5.40); White Blood Count 4.93 K/ul (4.8-10.8)
[2024-06-09 06:56] LABS: BUN Creatinine Ratio 32.4 (10-20); Calcium 10.3 mg/dl (8.6-10.3); Potassium 4.3 mmol/L (3.5-5.1)
--- NOTE | 2024-06-09 12:27 | Hospitalist Progress Note ---
Date of Service June 09, 2024 Assessment & Plan (1) Recurrent falls: Plan: 3 falls on the evening of 06/06 No head strike or LOC, but unable to get up on her own Patient lives alone Head/cervical spine CT without acute findings Left hip x-ray without acute fractures or dislocation PT/OT consulted Case management on board Per case management note, daughter suggested patient needing rehab. Called daughter, left voicemail. Awaiting callback. Fall precautions (2) Hyperglycemia: Plan: Glucose 424 on arrival; suspect poorly controlled diabetes is contributing to her falls Patient has been started on an insulin regimen Diabetes counselor consulted, as patient will likely require long-acting insulin injections upon discharge and follow-up with PCP (3) Diabetes mellitus, type 2: Plan: Last A1c at 14.3% on 06/07/2024 Patient had initially denied any knowledge of being a diabetic but per diabetes education note from 06/07, she recalled being on diabetes medications in the past. She was on metformin which she stopped due to inability to swallow the large pill. Lantus 8 u BID SSI; with target BSG range 110-140mg/dL, CF 30, carb ratio 10 T2DM diet BSG ACHS Adjust regimen as needed (4) Dysphagia: Plan: Ongoing; follows with Dr. Batista send patient; reports recent EGD with dilation Aspiration precautions Speech therapy recommended GI consult. Consulted GI as the patient has ongoing issues with dysphagia. She may need esophageal dilatation. (5) Dehydration: Plan: Improved Encourage p.o. fluids (6) Hypercalcemia: Plan: Most likely due to dehydration Normalized PTH normal (7) Elevated troponin: Plan: Troponins flat No chest pain Noncardiac Most likely demand ischemia (8) Hyperkalemia: (9) Leukocytosis: Plan DNR/DNI T2DM diet (aspiration precautions) VTE PPx: Teds; high fall risk Admission and Anticipated Discharge Date Admission Date: June 07, 2024 Subjective Patient was seen and examined at 9:45 AM. The nurse had reported swallowing difficulty. The patient states that she was going to see GI as a follow-up for her dysphagia but she was admitted to the hospital that day. She confirms swallowing difficulty. In the past she had esophageal dilatation done by GI. She sees Dr. Batista outpatient. Review of Systems Review of Systems: All systems reviewed & are unremarkable except as noted in Subjective Physical Exam Physical Exam: General: Awake, conversant Heart: S1, S2/regular rate and rhythm, no murmur rubs or gallops Lungs: Clear to auscultation bilaterally. Normal effort Abdomen: Soft/nontender/nondistended. No hepatosplenomegaly Extremities: No clubbing/cyanosis. No edema Behavior: Appropriate, cooperative Results & Data Results & Data Vital Signs (Past 12 Hours) Vital Signs Temp Pulse Pulse Pulse Resp BP Pulse Ox 06/09/24 11:32 36.3 C L 76 14 148/80 H 96 06/09/24 08:00 82 06/09/24 07:55 36.6 C 80 14 134/74 96 06/09/24 02:46 36.5 C 85 18 144/88 H 94 O2 Del Method 06/09/24 11:32 Room Air 06/09/24 08:00 06/09/24 07:55 Room Air 06/09/24 02:46 Room Air Laboratory Results Abnormal lab results 06/08/24 06/08/24 06/08/24 Range/Units 12:24 17:06 20:02 [place] # (Auto) (0.11-0.59) K/uL Anion Gap (3-11) BUN/Creatinine Ratio (10-20) Glucose (70-99(Fasting)) mg/dl POC Glucose 142 H 173 H 170 H (70-99) mg/dl 06/09/24 06/09/24 Range/Units 05:47 08:24 [place] # (Auto) 0.60 H (0.11-0.59) K/uL Anion Gap 13 H (3-11) BUN/Creatinine Ratio 32.4 H (10-20) Glucose 211 H (70-99(Fasting)) mg/dl POC Glucose 200 H (70-99) mg/dl PG Care Time/CCT Total # of Minutes Spent Total Time Spent with Patient: Total time spent is greater than 50% in coordination of care (as documented) at patient's floor/unit and/or counseling patient: Coding Level of Care Code 06227 SUB INP/OBS CARE 2/35MIN Diagnoses Recurrent falls R29.6 Hyperglycemia R73.9 Diabetes mellitus, type 2 E11.9 Dysphagia R13.10 Dehydration E86.0 Hypercalcemia E83.52 Elevated troponin R79.89 Hyperkalemia E87.5 Leukocytosis D72.829
[2024-06-10 06:54] LABS: Basophils # (auto) 0.05 K/uL (0.00-0.20); Basophils % (auto) 0.9 %; Eosinophils # (auto) 0.13 K/uL (0.00-0.50); Eosinophils % (auto) 2.4 %; Hematocrit (blood only) 36.7 % (37.0-47.0); Hemoglobin 12.8 g/dl (12.0-16.0); Immature Granulocytes # (auto) 0.06 K/uL (0.01-0.20); Immature Granulocytes % (auto) 1.1 %; Mean Corpuscular Hemoglobin 30.6 pg (25.0-34.0); Mean Corpuscular Hgb Conc 34.9 g/dL (32.0-36.0); Mean Corpuscular Volume 87.8 fL (80.0-100.0); Mean Platelet Volume 9.8 fL (9.4-12.4); Monocytes # (auto) 0.61 K/uL (0.11-0.59); Monocytes % (auto) 11.4 %; Neutrophils # (auto) 3.01 K/uL (1.40-6.50); Neutrophils % (auto) 56.2 %; Platelet Count 174 K/uL (130-400); RDW Coefficient of Variation 13.5 % (11.5-14.5); RDW Standard Deviation 43.4 fL (36.4-46.3); Red Blood Count 4.18 M/uL (4.20-5.40); White Blood Count 5.36 K/ul (4.8-10.8)
[2024-06-10 07:15] LABS: BUN Creatinine Ratio 23.4 (10-20); Calcium 10.2 mg/dl (8.6-10.3); Potassium 4.3 mmol/L (3.5-5.1)
[2024-06-10] MEDS: LANTUS PER UNIT CHARGE SQ SCH (09:24)
--- NOTE | 2024-06-10 10:19 | Gastrointestinal Consultation ---
Date of Consultation June 10, 2024 Assessment & Plan (1) Dysphagia: -Continue Protonix 40 mg BID -Had recent EGD with dilatation in March 2024 -Was not receptive to [employer] recommendations -Will discuss with Dr. Rodriguez regarding ongoing GI plans of repeating scope vs other imaging/testing, however patient did eat a breakfast tray today so no repeat EGD at present. Supervising Physician Co-Signing Physician Notes I saw and examined this patient with our nurse practitioner and agree with her assessment and plan. Symptoms most consistent with oropharyngeal dysphagia and not due to any mechanical esophageal luminal obstruction. She was evaluated by speech therapy 2 years ago who recommended therapy for swallowing. At that time she refused. However I would recommend reconsulting speech therapy to work with her. No need for repeat endoscopy at this time. History of Present Illness Reason for Consultation: Dysphagia Attending Physician: Yasir Katz MD History of Present Illness Patient is an 83 yo female who presented to [facility] for recurrent falls. While here she reported ongoing dysphagia. She had an EGD in 03/2024 for dilatation of an esophageal stenosis at the [facility]. She notes that she has had dysphagia for 40 years and this intervention did not make a difference. She notes she modifies her diet at home. She mainly notices dysphagia with meals. She was evaluated by [employer] this admission and was not receptive to their recommendations. A video swallow in 2021 showed multiple consistency aspiration. She denies heartburn & reflux. She takes Plavix. She is on Protonix 40 mg BID. No hematemesis. No pertinent family history. She was given a breakfast tray this AM. Allergies Allergy/AdvReac Type Severity Reaction Status Date / Time nickel Allergy Mild RASH Verified 05/13/24 09:31 Penicillins Allergy Mild Rash and Verified 05/13/24 09:31 throat tightness ranitidine Allergy Mild rash Verified 05/13/24 09:31 Sulfa (Sulfonamide Allergy Mild rash Verified 05/13/24 09:31 Antibiotics) ciprofloxacin AdvReac Mild GI SYMPTOMS Verified 05/13/24 09:31 ibuprofen AdvReac Mild TACHYCARDIA Verified 05/13/24 09:31 meclizine AdvReac Mild GI SYMPTOMS Verified 05/13/24 09:31 oxycodone AdvReac Mild Nausea/Vomi Verified 05/13/24 09:31 ting Home Medications Medication Instructions Recorded Confirmed Type cholecalciferol (vitamin D3) 50 2,000 units PO QAM 08/16/19 06/07/24 History mcg (2,000 unit) tablet ascorbate calcium (vitamin C) 500 1 g PO QAM 08/18/20 06/07/24 History mg tablet menthol 16 % topical spray (Icy 1 spray topical HS 08/18/20 06/07/24 History Hot (menthol)) melatonin 10 mg tablet 10 mg PO HS PRN Sleep 06/02/21 06/07/24 History acetaminophen 500 mg tablet 1,000 mg (2 x 500 mg) PO Q8H PRN 04/11/22 06/07/24 Rx (Tylenol Extra Strength) Pain #180 tabs biotin 10,000 mcg chewable tablet 10,000 mcg PO QAM 04/03/24 06/07/24 History (Hair, Skin and Nails (biotin)) clopidogrel 75 mg tablet (Plavix) 75 mg PO QAM 04/03/24 06/07/24 History losartan 100 mg tablet 100 mg PO QAM 04/03/24 06/07/24 History solifenacin 10 mg tablet (Vesicare) 10 mg PO QAM 04/03/24 06/07/24 History levothyroxine 112 mcg tablet 112 mcg PO QAM #90 tabs 04/04/24 06/07/24 Rx amlodipine 5 mg tablet (Norvasc) 10 mg (2 x 5 mg) PO QAM #90 tabs 04/15/24 06/07/24 Rx pantoprazole 40 mg tablet,delayed 40 mg PO BID 1 month #180 tabs 04/15/24 06/07/24 Rx release triamterene 37.5 1 tab PO DAILY #90 tabs 04/28/24 06/07/24 Rx mg-hydrochlorothiazide 25 mg tablet empagliflozin 25 mg tablet 25 mg PO DAILY #90 tabs 05/13/24 06/07/24 Rx (Jardiance) Patient History Medical History LBBB (left bundle branch block) 03/20/24, per PCP record: "She was noted to have new left bundle branch block compared to an old EKG and had mildly elevated troponin on arrival. The elevated troponin remained flat and mild after being trended. Echocardiogram showed no wall motion abnormalities. Cardiology was consulted and did not feel as though her chest pain was cardiac in nature and did not recommend a stress test either. Cause of pain thought to be esophageal disease.">brought to [place] ER for CP and evaluated, hospitalized for 3 days Esophageal reflux Diverticulosis of colon hx Dysphagia LPRD (laryngopharyngeal reflux disease) Mixed stress and urge incontinence Osteoporosis Osteoarthritis Hypertension Hypothyroidism Afib episodic (2014), sinus rhythm per 01/2019 EKG; used to f/u ma cardio, "no longer needs to see" HX: breast cancer dx 2017, sx and 1 week of xrt Arthritis History of gastric ulcer Hearing deficit Stomach ulcer ~2017, resolved, no current issues Insomnia Anxiety Restless leg syndrome Migraine Surgical History History of esophagogastroduodenoscopy (EGD) w/dialation Nausea and vomiting after administration of anesthetic agent History of endoscopic sinus surgery History of colonoscopy Hx of lumpectomy RIGHT BREAST (RADIATION) History of total abdominal hysterectomy and bilateral salpingo-oophorectomy Trigger finger THUMB/LIGAMENT SURGERY> BILAT resolved History of tooth extraction History of cataract surgery BILAT H/O nasal septoplasty H/O hand surgery thumb surgery bilat. hands Family History Mother Hearing loss Hypertension Heart disease Father Hearing loss Hypertension Cancer Brother Stroke Other Cancer of kidney Denies family history of Breast cancer Social History Smoking Status: Former smoker Tobacco Type: Cigarettes Age Started Using Tobacco: 17; Age Quit Using Tobacco: 30; packs per day: 1; Second Hand Exposure: Yes (hx ex smoked); Do You Dip or Chew Tobacco: No; Hx Alcohol Use: No Hx Substance Use: No Preferred Language: Kazakh Communication Ability: Effective Hearing Ability: Use of Hearing Aid Tamale Maker Required: No Beliefs That Will Affect Care: None marital status: Single Current Living Situation: Alone current occupational status: retired Feels Safe at Home: Yes Safety Concerns: Feels Safe At This Time Childhood Exposure to Second-Hand Smoke: No Diet: diabetic caffeine: No Dental Care, Regularly: No Physical Activity Frequency: Daily Seatbelt Use: always Sunscreen Use: No Assistive Devices: Cane Review of Systems Constitutional: + weakness; no weight loss Respiratory: no cough and no dyspnea Cardiovascular: no chest pain Gastrointestinal: + dysphagia Psychiatric: no problem reported Physical Exam Constitutional: well developed Respiratory: normal respiratory effort Gastrointestinal (Abdomen): normal bowel sounds, soft, nontender, no hepatosplenomegaly Psychiatric: Orientation: alert and oriented x 3 Results & Data Vital Signs (Past 12 Hours) Vital Signs Temp Pulse Pulse Resp BP Pulse Ox O2 Del Method 06/10/24 07:49 36.4 C L 83 20 141/79 H 95 Room Air 06/10/24 07:00 68 06/10/24 04:00 36.4 C L 82 18 148/69 H 93 Room Air 06/10/24 00:00 36.5 C 85 18 145/65 H 97 Room Air PG Care Time/CCT Total # of Minutes Spent Total Time Spent with Patient: Total time spent is greater than 50% in coordination of care (as documented) at patient's floor/unit and/or counseling patient: Coding Level of Care Code 31567 INT INP/OBS CARE 3/75MIN Diagnoses Dysphagia R13.10
--- NOTE | 2024-06-10 14:23 | Electrocardiogram Report ---
Test Reason : Blood Pressure : */* mmHG Vent. Rate : 61 BPM Atrial Rate : 61 BPM P-R Int : 162 ms QRS Dur : 120 ms QT Int : 408 ms P-R-T Axes : 71 -19 115 degrees QTcB Int : 410 ms Sinus rhythm Borderline Left bundle branch block Abnormal ECG When compared with ECG of 07-Jun-2024 10:07, No significant change Confirmed by Toan Momin ([id number]) on 06/10/2024 2:23:07 PM Referred By: REFERRED SELF Confirmed By: Toan Momin
[2024-06-10] MEDS: glipiZIDE 5 MG TAB PO SCH (14:32)
--- NOTE | 2024-06-10 14:32 | Hospitalist Progress Note ---
Date of Service June 10, 2024 Assessment & Plan (1) Recurrent falls: Plan: Supportive care. Continue OT and PT. Patient lives alone. Head/cervical spine CT without acute findings on admission. Left hip x-ray without acute fractures or dislocation (2) Hyperglycemia: Plan: Glucose 424 on arrival; suspect poorly controlled diabetes is contributing to her falls. She has now refusing to take insulin. She has been started on Januvia and glipizide. Continue ADA diet. (3) Diabetes mellitus, type 2: Plan: Last A1c at 14.3% on 06/07/2024. She was started on insulin on admission but is now refusing to take it. She is now on Januvia and glipizide. Continue ADA diet. (4) Dysphagia: Plan: Had EGD with esophageal dilatation in March of this year. Appreciate GI consultation and recommendations. They are considering whether repeat EGD will be done this admission or not. (5) Dehydration: Plan: Resolved. Corrected with IV fluids (6) Hypercalcemia: Plan: Present on admission. Now normalized. PTH normal (7) Elevated troponin: Plan: Mild. No acute EKG changes. No chest pain. No evidence of acute coronary syndrome. (8) Hyperkalemia: Plan: Present on admission. Now resolved Plan To be determined. OT and PT assessments pending. This will determine her disposition Admission and Anticipated Discharge Date Admission Date: June 07, 2024 Subjective Alert and oriented. She refuses to take any further insulin. Will switch to oral Januvia and glipizide and hope for the best. GI consultation noted. She had recent esophageal dilatation in March of this year. There is a possibility this will need to be repeated. PT and OT assessments are pending. Glucose 221 this morning. Review of Systems 2 Review of Systems: Constitutionalno fever or chills ENTno blurred vision, no double vision, no epistaxis, no sore throat Respiratoryno cough, no wheezing, no shortness of breath Cardiacno palpitations, no chest pain, no syncope Che nausea, vomiting, diarrhea, melena, hematochezia. She has chronic dysphagia GUno urinary retention, no urinary incontinence, no dysuria, no hematuria Musculoskeletalno joint pain, no muscle tenderness Skinno bruising, no rashes, no pruritus Neurono isolated weakness, no paresthesia, no weakness Psychno depression, no anxiety. She appears to be manic at times Physical Exam 2 Physical Exam: General-alert and oriented x3, no fever, no chills HEENT-head atraumatic and normocephalic, pupils equal and reactive to light, extraocular muscles intact Neck-no lymphadenopathy or thyromegaly, trachea midline Chest-clear to auscultation. No rales, wheezing or rhonchi Cardiac-regular rate and rhythm, normal S1 and S2 Abdomen-normal bowel sounds, no hepatosplenomegaly Extremities-no cyanosis, clubbing, or edema Neuro-cranial nerves II through XII intact, motor and sensory function within normal limits, strength symmetrical, no focal deficits Psych-she appears to be manic at times Results & Data Results & Data Vital Signs (Past 12 Hours) Vital Signs Temp Pulse Pulse Resp BP BP Pulse Ox 06/10/24 13:40 87 06/10/24 12:00 06/10/24 11:16 36.4 C L 98 H 20 167/83 H 95 06/10/24 07:49 36.4 C L 83 20 141/79 H 95 06/10/24 07:00 68 06/10/24 04:00 36.4 C L 82 18 148/69 H 93 O2 Del Method O2 Del Method 06/10/24 13:40 06/10/24 12:00 Room Air 06/10/24 11:16 Room Air 06/10/24 07:49 Room Air 06/10/24 07:00 06/10/24 04:00 Room Air Laboratory Results 06/10/24 06:12 06/10/24 06:12 PG Care Time/CCT Total # of Minutes Spent Total Time Spent with Patient: Total time spent is greater than 50% in coordination of care (as documented) at patient's floor/unit and/or counseling patient: Coding Level of Care Code 03811 SUB INP/OBS CARE 3/50MIN Diagnoses Recurrent falls R29.6 Hyperglycemia R73.9 Diabetes mellitus, type 2 E11.9 Dysphagia R13.10 Dehydration E86.0 Hypercalcemia E83.52 Elevated troponin R79.89 Hyperkalemia E87.5
[2024-06-10] MEDS: SITagliptin PHOSPHATE 100 MG TAB PO SCH (18:06)
[2024-06-11] MEDS: ACETAMINOPHEN 325 MG TAB PO PRN (07:29)
--- NOTE | 2024-06-11 09:38 | Communication Note ---
Date of Service: June 11, 2024 Patient is an 83 yo female with 40+ years of dysphagia without any improvement with esophageal dilatation performed in March 2024. As per GI consultation yesterday, no plans for repeat EGD. We did offer patient referral for esophageal manometry, but she declined due to transportation issues. Dr. Rodriguez had encouraged participation with [facility]. GI will sign off at this time.
--- NOTE | 2024-06-11 12:12 | Discharge Summary ---
Discharge Summary Date of Service June 11, 2024 Principal Dx & Hospital Course #1 = Principal Diagnosis (1) Recurrent falls: Supportive care. Treated while hospitalized with OT and PT. Patient lives alone. Head/cervical spine CT without acute findings on admission. Left hip x- ray without acute fractures or dislocation (2) Hyperglycemia: Glucose 424 on arrival; suspect poorly controlled diabetes is contributing to her falls. She is now refusing to take insulin. She has been started on Januvia and glipizide. Glucose is much improved and hopefully will continue to normalize. She has been provided a prescription for a home glucose meter and supplies and instructed to check her fasting glucose every morning before breakfast and keep a record to show her primary care provider . Continue ADA diet. (3) Diabetes mellitus, type 2: Last A1c at 14.3% on 06/07/2024. She was started on insulin on admission but is now refusing to take it. She is now on Januvia and glipizide. Continue ADA diet. (4) Dysphagia: Had EGD with esophageal dilatation in March of this year. Appreciate GI consultation and recommendations. Repeat EGD is not recommended at this time (5) Dehydration: Resolved. Corrected with IV fluids (6) Hypercalcemia: Present on admission. Now normalized. PTH normal (7) Elevated troponin: Mild. No acute EKG changes. No chest pain. No evidence of acute coronary syndrome. (8) Hyperkalemia: Present on admission. Now resolved Plan Home today, June 11 Admission HPI Per Admitting Provider Citlaly is a pleasant 83-year-old female with PMH of HTN, dyslipidemia, osteoporosis, hypothyroidism, T2DM, NSTEMI, and LBBB. She presented via EMS on 06/07 after experiencing 3 falls since 9 PM last night. She presented as a trauma alert in the ED. Patient currently takes Plavix, but she is unsure why. She denies any head strike or LOC. No dizziness or lightheadedness prior to fall. Patient lives by herself. She reports that she had her first fall on Monday night when she was sleeping on her couch; she fell off the couch and onto the floor and had to crawl to her recliner to get back up. She was down for several minutes but was able to stand on her own. The fall was last night on , she was unable to get up on her own. She clicked her necklace and EMS was called. When they arrived they were able to get her up, and she initially declined going to the hospital. However this occurred 2 more times that she was getting ready for bed; she would have fall and being able to get up on her own. When asked why she falls, she reports that her left leg gives out on her. She reports that this has been a chronic issue, but it has been worse this past week. She used to have steroid injections in her left hip, but stopped doing this a while ago. She ambulates with a cane at baseline, and reports that she was using the cane whenever she fell. No recent injuries to the head or neck. Patient did not take her regular morning medicines today; she manages her own medicine at home, and denies any recent medication changes. She follows with Dr. Batista for dysphagia, and reports that she has had difficulty swallowing pills and food in the past due to her dysphagia. She also coughs/vomits up her medications when she feels they get stuck. Per patient, she had a recent EGD and dilation, and was supposed to have an appointment today with GI. Patient did not know she has a history of diabetes. No history of stroke to her knowledge, and she denies strokelike symptoms this week such as slurred speech, facial droop, or left side of her body "giving out" on her. Patient takes Plavix, but is unsure why, and denies past medical history of heart stents. In regard to her left hip, she does report that she has ongoing left hip pain with walking and standing; no hip pain at rest. She has been taking Tylenol as needed for the pain. She reports that she had 9/10 pain after falling last night, but she currently has 0/10 pain at present sitting in bed. She denies smoking, tobacco use, recent alcohol use. Patient is hypertensive at 161/92 at time of admission; vitals otherwise stable. ED course: NSS 500 mL IV x 2 Regular insulin 10 units IV ROS: Patient endorses recurrent falls, LLE weakness, dry mouth, dysphagia, vomiting (which patient attributes to getting food stuck in her throat), lower back pain, and intermittent urinary incontinence (not new for her). Patient denies fever, chills, night-sweats, dizziness, lightheadedness, headache, fainting, slurred speech, facial droop, unilateral deficits, chest pain, SOB, cough, nausea, diarrhea, burning with urination, blood in the urine/stool, saddle anesthesia, or numbness/tingling in the legs. Addendum: Was alerted by nursing staff that patient developed 7/10 substernal chest pain upon making up to the medical floor. Patient was reassessed at bedside after receiving nitroglycerin, and reports that her pain is 0/10 at present. Her pain was substernal without radiation to either shoulder or arm. She characterizes it as a "pressure" pain that felt like past episodes of GERD. It developed at rest. At present, her largest concern is getting food/eating. Per review of prior notes from her past hospitalization in February 2024, she does have a history of GERD, esophageal problems, and Schatzki ring which are likely contributory here. In the setting of elevated troponin, acute onset of chest pain, and uncontrolled diabetes, will give aspirin 324 mg p.o. and trend troponin. Discussed case with cardiology. Given likelihood of GI etiology, they recommended deferring an additional echocardiogram at this time (last echo was in February 2024); recommended outpatient follow-up. Discharge Exam General-alert and oriented x3, no fever, no chills HEENT-head atraumatic and normocephalic, pupils equal and reactive to light, extraocular muscles intact Neck-no lymphadenopathy or thyromegaly, trachea midline Chest-clear to auscultation. No rales, wheezing or rhonchi Cardiac-regular rate and rhythm, normal S1 and S2 Abdomen-normal bowel sounds, no hepatosplenomegaly Extremities-no cyanosis, clubbing, or edema Neuro-cranial nerves II through XII intact, motor and sensory function within normal limits, strength symmetrical, no focal deficits Psych-she appears to be manic at times Discharge Plan Discharge Items Patient Disposition: Home - Self-Care Reason For Visit: RECURRENT FALLS Discharge Diagnosis: Recurrent falls, uncontrolled diabetes, volume depletion Condition on Discharge: Good Activity: Resume your previous activity Non-emergency contact: Primary Care Provider Call non-emergency contact if: you have any medication questions and your symptoms worsen Follow-up/Referrals: Bethany Bolivar MD [Primary Care Provider] - Diet: Carb Consistent or DM2 Addtl Attending Provider Instructions: Take glipizide and Januvia daily as directed for diabetes. Check fasting sugar once a day in the morning before breakfast and keep a record to show your primary care provider. Pending Studies at Discharge: No Stand-Alone Forms: My [facility], Smoking Cessation Medications and DC Order Prescriptions: New glipizide 5 mg Tablet 5 mg PO QAM Qty: 30 0RF Januvia 100 mg Tablet 100 mg PO DAILY Qty: 30 0RF Continued Icy Hot (menthol) 16 % aerosol,spray 1 spray topical HS Rx Instructions: Unable to verify OTC meds at this date/time. cholecalciferol (vitamin D3) 2,000 unit tablet 2,000 units PO QAM Rx Instructions: Unable to verify OTC meds at this date/time. ascorbate calcium (vitamin C) 500 mg tablet 1 g PO QAM Rx Instructions: Unable to verify OTC meds at this date/time. melatonin 10 mg tablet 10 mg PO HS PRN (Reason: Sleep) Rx Instructions: Unable to verify OTC meds at this date/time. levothyroxine 112 mcg tablet 112 mcg PO QAM Qty: 90 3RF pantoprazole 40 mg tablet,delayed release (DR/EC) 40 mg PO BID 30 Days Qty: 180 1RF amlodipine [Norvasc] 5 mg tablet 10 mg PO QAM Qty: 90 1RF triamterene-hydrochlorothiazid 37.5-25 mg tablet 1 tab PO DAILY Qty: 90 3RF acetaminophen [Tylenol Extra Strength] 500 mg tablet 1,000 mg PO Q8H PRN (Reason: Pain) Qty: 180 3RF Rx Instructions: Unable to verify OTC meds at this date/time. Hair, Skin and Nails (biotin) 10,000 mcg Tablet,Chewable 10,000 mcg PO QAM clopidogrel [Plavix] 75 mg tablet 75 mg PO QAM losartan 100 mg tablet 100 mg PO QAM solifenacin [Vesicare] 10 mg tablet 10 mg PO QAM Discontinued Jardiance 25 mg tablet 25 mg PO DAILY Qty: 90 3RF Discharge Orders: Discharge Order (Routine); Ordered 06/11/24 Ordered By: Yasir Katz Admission Data Admit Date/Time: 06/07/24 11:30 Attending Provider: Yasir Katz Admit Provider: Satnam Rush Primary Care Provider: Bethany Bolivar Other Providers: Satnam Rush; Oseas Osman Jr Hospital Stay Data Consultations 06/07/24 11:02 ED Decision to Admit Stat 06/09/24 12:21 Consult Gastroenterology Routine Diagnostic Imagining Performed 06/07/24 09:47 CT cervical spine wo con Stat CT head/brain wo con Stat Pending Results Patient Have Any Pending Studies at Discharge: No Discharge Instructions Given to Patient (Per Discharging Provider) Take glipizide and Januvia daily as directed for diabetes. Check fasting sugar once a day in the morning before breakfast and keep a record to show your primary care provider. Total Time Total Time Spent Total Time Spent (In Minutes): 45 minutes Coding Level of Care Code 96189 INP/OBS DISCH >30 MIN Diagnoses Recurrent falls R29.6 Hyperglycemia R73.9 Diabetes mellitus, type 2 E11.9 Dysphagia R13.10 Dehydration E86.0 Hypercalcemia E83.52 Elevated troponin R79.89 Hyperkalemia E87.5
[2024-06-11 13:11] VITALS: RESP 16; TEMP 98.6; O2SAT 95
[2024-06-11 13:26] VITALS: BP 143/81
[2024-06-11 14:12] VITALS: PULSE 89
== END 2024-06-11 14:12 | disposition home or self-care (01) | DRG 639 ==
LOC: ED 09:25 → SUATTDRO 11:30 → 2N 11:30